=== PATIENT | male | born 1960 | race Caucasian/White ===

== ENCOUNTER 2020-01-11 16:41 | Outpatient (CLI) | payer MEDICARE, SELFPAY ==
[2020-01-11 17:36] LABS: Alanine Aminotransferase 37 U/L (4-50); Albumin Level 4.1 g/dL (3.5-5.1); Alkaline Phosphatase 71 U/L (38-126); Anion Gap 5 mmol/L (8-16); Aspartate Amino Transferase 37 U/L (17-59); Bilirubin,Total 0.4 mg/dL (0.2-1.3); Blood Urea Nitrogen 19 mg/dL (9-20); Calcium 8.9 mg/dL (8.4-10.2); Carbon Dioxide 29 mmol/L (22-30); Chloride 103 mmol/L (98-107); Cholesterol 165 mg/dL (0-200); Estimated Glomerular Filt Rate > 60; Glucose 108 mg/dL (75-110); HDL Direct 56 mg/dL; Potassium 4.3 mmol/L (3.4-5.0); Sodium 137 mmol/L (137-145); Triglycerides 148 mg/dL (<150)
[2020-01-11 17:47] LABS: LDL Cholesterol Direct 72 mg/dL
== END 2020-01-11 16:42 | disposition home or self-care (01) ==
LOC: ANHLAB 16:46
PROVIDERS: PCP Family Medicine; Visit Provider Family Medicine
DX: E78.5 Hyperlipidemia, unspecified (principal)
CPT/HCPCS: 36415; 80053; 80061

== ENCOUNTER 2020-01-19 11:20 | Outpatient (NON) | payer MEDICARE, SELFPAY ==
[2020-01-19 19:48] LABS: SARS-CoV-2 RNA PCR Negative
== END 2020-01-19 11:21 ==
PROVIDERS: PCP Family Medicine; Visit Provider Family Medicine
DX: Z20.828 Contact with and (suspected) exposure to other viral communicable diseases (principal); J02.9 Acute pharyngitis, unspecified
CPT/HCPCS: 87635; C9803; U0003

== ENCOUNTER 2020-04-04 13:54 | Outpatient (CLI) | payer MEDICARE, SELFPAY ==
[2020-04-04 14:14] LABS: Basophils Percent Auto 0.5 % (0.2-1.2); Eosinophils Absolute Auto 0.2 K/mm3 (0-0.3); Eosinophils Percent Auto 3.4 % (0-4.4); Hematocrit 38.5 % (42.0-52.0); Hemoglobin 12.7 g/dL (14.0-18.0); Immature Granulocyte Absolute 0.03 K/mm3 (0.00-0.031); Immature Granulocyte Percent A 0.5 % (0-0.5); Immature Platelet Fraction Pct 4.1 % (0.9-11.2); Lymphocytes Absolute Auto 0.88 K/mm3 (0.9-3.2); Lymphocytes Percent Auto 14.4 % (18.3-44.2); Mean Platelet Volume 10.4 fl (7.4-10.4); Monocytes Absolute Auto 0.6 K/mm3 (0.1-0.6); Monocytes Percent Auto 9.3 % (2.6-8.5); Neutrophils Absolute Auto 4.4 K/mm3 (1.3-6.7); Neutrophils Percent Auto 71.9 % (45.5-73.1); Platelet Count Result 126 k/mm3 (150-375); Red Blood Count 4.23 M/mm3 (4.6-6.20); Red Cell Distribution Width 13.1 % (11.5-14.5); White Blood Count 6.1 K/mm3 (4.5-10.0)
[2020-04-04 14:15] LABS: Blood Urea Nitrogen 27 mg/dL (8-26); Carbon Dioxide 26 mmol/L (22-30); Chloride 106 mmol/L (98-109); Estimated Glomerular Filt Rate > 60; Glucose 110 mg/dL (70-105); Potassium 4.2 mmol/L (3.5-4.9); Sodium 142 mmol/L (138-146)
[2020-04-04 16:35] LABS: Alanine Aminotransferase 59 U/L (4-50); Albumin Level 3.8 g/dL (3.5-5.1); Alkaline Phosphatase 74 U/L (38-126); Anion Gap 6 mmol/L (8-16); Aspartate Amino Transferase 46 U/L (17-59); Bilirubin,Total 0.5 mg/dL (0.2-1.3); Blood Urea Nitrogen 26 mg/dL (9-20); Calcium 8.8 mg/dL (8.4-10.2); Carbon Dioxide 27 mmol/L (22-30); Chloride 107 mmol/L (98-107); Estimated Glomerular Filt Rate > 60; Glucose 116 mg/dL (75-110); Potassium 4.5 mmol/L (3.4-5.0); Sodium 140 mmol/L (137-145)
== END 2020-04-04 13:55 | disposition home or self-care (01) ==
PROVIDERS: PCP Family Medicine; Visit Provider Internal Medicine Hematology & Oncology
DX: D61.818 Other pancytopenia (principal)
CPT/HCPCS: 36415; 80048; 80053; 85025; 85055

== ENCOUNTER 2020-06-24 15:19 | Outpatient (CLI) | payer MEDICARE, SELFPAY | END 2020-06-24 15:20 | disposition home or self-care (01) | LOC: ANHCOVIDVC 15:19 | PROVIDERS: PCP Family Medicine; Visit Provider Family Medicine | DX: Z23 Encounter for immunization (principal) | CPT/HCPCS: 0001A; 91300 ==

== ENCOUNTER 2020-07-15 15:27 | Outpatient (CLI) | payer MEDICARE, SELFPAY | END 2020-07-15 15:28 | disposition home or self-care (01) | LOC: ANHCOVIDVC 15:27 | PROVIDERS: PCP Family Medicine; Visit Provider Family Medicine | DX: Z23 Encounter for immunization (principal) | CPT/HCPCS: 0002A; 91300 ==

== ENCOUNTER 2020-10-31 15:51 | Outpatient (CLI) | payer MEDICARE, SELFPAY ==
[2020-10-31 19:45] LABS: Prostate Specific Antigen 2.5 ng/mL (< OR = 4.0)
== END 2020-10-31 15:52 | disposition home or self-care (01) ==
LOC: ANHLAB 16:01
PROVIDERS: PCP Family Medicine; Referring Provider Internal Medicine; Visit Provider Internal Medicine Hematology & Oncology
DX: Z12.5 Encounter for screening for malignant neoplasm of prostate (principal); I10 Essential (primary) hypertension; E78.5 Hyperlipidemia, unspecified; R79.89 Other specified abnormal findings of blood chemistry; G62.9 Polyneuropathy, unspecified
CPT/HCPCS: 36415; 84153; G0103

== ENCOUNTER 2021-04-03 13:25 | Outpatient (CLI) | payer MEDICARE, SELFPAY ==
[2021-04-03 13:53] LABS: Basophils Percent Auto 0.6 % (0.2-1.2); Eosinophils Absolute Auto 0.4 K/mm3 (0-0.3); Eosinophils Percent Auto 7.8 % (0-4.4); Hematocrit 41.2 % (42.0-52.0); Hemoglobin 13.3 g/dL (14.0-18.0); Immature Granulocyte Absolute 0.02 K/mm3 (0.00-0.031); Immature Granulocyte Percent A 0.4 % (0-0.5); Immature Platelet Fraction Pct 5.2 % (0.9-11.2); Lymphocytes Absolute Auto 0.71 K/mm3 (0.9-3.2); Lymphocytes Percent Auto 15.3 % (18.3-44.2); Mean Corpuscular HGB Conc 32.3 g/dl (32-36); Mean Corpuscular Hemoglobin 30.6 pg (26-34); Mean Corpuscular Volume 94.7 fl (80-100); Mean Platelet Volume 10.6 fl (7.4-10.4); Monocytes Absolute Auto 0.5 K/mm3 (0.1-0.6); Monocytes Percent Auto 10.2 % (2.6-8.5); Neutrophils Percent Auto 65.7 % (45.5-73.1); Platelet Count Result 114 k/mm3 (150-375); Red Blood Count 4.35 M/mm3 (4.6-6.20); Red Cell Distribution Width 12.8 % (11.5-14.5); White Blood Count 4.6 K/mm3 (4.5-10.0)
[2021-04-03 13:54] LABS: Blood Urea Nitrogen 14 mg/dL (8-26); Carbon Dioxide 28 mmol/L (22-30); Chloride 105 mmol/L (98-109); Estimated Glomerular Filt Rate > 60; Glucose 98 mg/dL (70-105); Potassium 4.4 mmol/L (3.5-4.9); Sodium 141 mmol/L (138-146)
== END 2021-04-03 13:26 | disposition home or self-care (01) ==
LOC: ANHLAB 13:29
PROVIDERS: PCP Family Medicine; Visit Provider Internal Medicine Hematology & Oncology
DX: D61.818 Other pancytopenia (principal)
CPT/HCPCS: 36415; 80048; 85025; 85055

== ENCOUNTER 2021-10-31 13:04 | Outpatient (CLI) | payer MEDICARE, SELFPAY ==
[2021-10-31 13:41] LABS: Basophils Percent Auto 0.2 % (0.2-1.2); Eosinophils Absolute Auto 0.2 K/mm3 (0-0.3); Eosinophils Percent Auto 3.2 % (0-4.4); Hematocrit 40.3 % (42.0-52.0); Hemoglobin 12.9 g/dL (14.0-18.0); Immature Granulocyte Absolute 0.03 K/mm3 (0.00-0.031); Immature Granulocyte Percent A 0.6 % (0-0.5); Immature Platelet Fraction Pct 5.8 % (0.9-11.2); Lymphocytes Absolute Auto 0.76 K/mm3 (0.9-3.2); Lymphocytes Percent Auto 16.3 % (18.3-44.2); Mean Corpuscular Hemoglobin 30.1 pg (26-34); Mean Corpuscular Volume 94.2 fl (80-100); Mean Platelet Volume 10.3 fl (7.4-10.4); Monocytes Absolute Auto 0.4 K/mm3 (0.1-0.6); Neutrophils Absolute Auto 3.3 K/mm3 (1.3-6.7); Neutrophils Percent Auto 70.7 % (45.5-73.1); Platelet Count Result 117 k/mm3 (150-375); Red Blood Count 4.28 M/mm3 (4.6-6.20); Red Cell Distribution Width 12.8 % (11.5-14.5); White Blood Count 4.7 K/mm3 (4.5-10.0)
[2021-10-31 16:22] LABS: Alanine Aminotransferase 37 U/L (6-50); Albumin Level 4.2 g/dL (3.5-5.1); Alkaline Phosphatase 73 U/L (38-126); Anion Gap 4 mmol/L (8-16); Aspartate Amino Transferase 36 U/L (17-59); Bilirubin,Total 0.4 mg/dL (0.2-1.3); Blood Urea Nitrogen 22 mg/dL (9-20); Carbon Dioxide 28 mmol/L (22-30); Chloride 106 mmol/L (98-107); Estimated Glomerular Filt Rate > 60; Glucose 94 mg/dL (65-110); Potassium 4.3 mmol/L (3.4-5.0); Sodium 138 mmol/L (137-145)
== END 2021-10-31 13:05 | disposition home or self-care (01) ==
PROVIDERS: PCP Internal Medicine; Visit Provider Internal Medicine Hematology & Oncology
DX: D61.818 Other pancytopenia (principal)
CPT/HCPCS: 36415; 80053; 85025; 85055

== ENCOUNTER 2021-11-06 13:46 | Outpatient (CLI) | payer MEDICARE, SELFPAY ==
--- NOTE | ~2021-11-06 | MR_ITS ---
EXAMINATION: MR knee RT wo con DATE: 11/06/2021 14:42 INDICATION: Right knee pain. TECHNIQUE: Magnetic resonance imaging (MRI) of the right knee was performed without intravenous contr ast. Sequences included axial PD-weighted FS FSE, coronal PD-weighted FSE and PD-weighted FS FSE, sag ittal PD-weighted FSE, and sagittal T2-weighted FS FSE. COMPARISON: None. FINDINGS: Medial compartment: Medial meniscus is normal. There is a subchondral insufficiency fracture of medial femoral condyle wi th low signal fracture line and surrounding bone marrow edema. There is shallow partial-thickness car tilage loss of tibial condyle anteromedially with mild subchondral edema-like signal intensity. Femor al cartilage is normal. Lateral compartment: Lateral meniscus is normal. There is cartilage surface irregularity of tibial condyle. Femoral cartil age is normal. Patellofemoral compartment: There is cartilage surface irregularity of patella and trochlea. Ligaments and tendons: The anterior and posterior cruciate ligaments are normal. Medial collateral ligament and lateral nolan ateral ligament complex are intact. There is mild patellar tendinopathy. Fluid: There is a small knee joint effusion. There is mild prepatellar and superficial infrapatellar bursiti s. IMPRESSION: 1. Subchondral insufficiency fracture of medial femoral condyle. 2. Mild tricompartmental chondrosis. 3. Small knee joint effusion. Reviewed, dictated and finalized at location A.
== END 2021-11-06 13:47 | disposition home or self-care (01) ==
PROVIDERS: PCP Internal Medicine; Visit Provider Orthopaedic Surgery
DX: M25.461 Effusion, right knee (principal); S72.432A Displaced fracture of medial condyle of left femur, initial encounter for closed fracture; X58.XXXA Exposure to other specified factors, initial encounter
CPT/HCPCS: 73721

== ENCOUNTER 2022-04-01 14:25 | Outpatient (CLI) | payer MEDICARE, SELFPAY ==
[2022-04-01 14:43] LABS: Basophils Percent Auto 0.6 % (0.2-1.2); Eosinophils Absolute Auto 0.2 K/mm3 (0-0.3); Eosinophils Percent Auto 3.1 % (0-4.4); Hematocrit 38.7 % (42.0-52.0); Hemoglobin 12.7 g/dL (14.0-18.0); Immature Granulocyte Absolute 0.01 K/mm3 (0.00-0.031); Immature Granulocyte Percent A 0.2 % (0-0.5); Immature Platelet Fraction Pct 5.1 % (0.9-11.2); Lymphocytes Percent Auto 17.6 % (18.3-44.2); Mean Corpuscular HGB Conc 32.8 g/dl (32-36); Mean Corpuscular Hemoglobin 30.8 pg (26-34); Mean Corpuscular Volume 93.7 fl (80-100); Mean Platelet Volume 10.5 fl (7.4-10.4); Monocytes Absolute Auto 0.6 K/mm3 (0.1-0.6); Monocytes Percent Auto 12.1 % (2.6-8.5); Neutrophils Absolute Auto 3.4 K/mm3 (1.3-6.7); Neutrophils Percent Auto 66.4 % (45.5-73.1); Platelet Count Result 109 k/mm3 (150-375); Red Blood Count 4.13 M/mm3 (4.6-6.20); Red Cell Distribution Width 12.6 % (11.5-14.5); White Blood Count 5.1 K/mm3 (4.5-10.0)
[2022-04-01 16:53] LABS: Alanine Aminotransferase 36 U/L (6-50); Albumin Level 4.1 g/dL (3.5-5.1); Alkaline Phosphatase 67 U/L (38-126); Anion Gap 2 mmol/L (8-16); Aspartate Amino Transferase 53 U/L (17-59); Bilirubin,Total 0.4 mg/dL (0.2-1.3); Blood Urea Nitrogen 21 mg/dL (9-20); Calcium 8.5 mg/dL (8.4-10.2); Carbon Dioxide 31 mmol/L (22-30); Chloride 102 mmol/L (98-107); Estimated Glomerular Filt Rate > 60; Glucose 93 mg/dL (65-110); Potassium 4.6 mmol/L (3.4-5.0); Sodium 135 mmol/L (137-145)
[2022-04-01 17:21] LABS: Iron 91 ug/dL (49-181)
[2022-04-01 17:30] LABS: Percent Iron Saturation 25 % (20-50)
== END 2022-04-01 14:26 | disposition home or self-care (01) ==
LOC: ANHLAB 14:26
PROVIDERS: PCP Internal Medicine; Visit Provider Internal Medicine Hematology & Oncology
DX: D61.818 Other pancytopenia (principal); I13.11 Hypertensive heart and chronic kidney disease without heart failure, with stage 5 chronic kidney disease, or end stage renal disease
CPT/HCPCS: 36415; 80053; 82728; 83540; 83550; 85025; 85055

== ENCOUNTER 2022-05-01 13:46 | Outpatient (CLI) | payer MEDICARE, SELFPAY ==
--- NOTE | ~2022-05-01 | DEXA_ITS ---
Bone Density Report Name: TREVER CHILEL Age: 61 Sex: Male Ethnicity: White Date of : 1960 Indication: prior fracture; asthma or emphysema; Referring Provider: DELFINA NGUYỄN Study: Bone densitometry was performed. Exam Date: May 01, 2022 Accession number: [id number] Bone Density: Region BMD T-score Z-score Classification AP Spine(L1, L2) 0.898 -1.4 -0.7 Osteopenia Femoral Neck (Left) 0.714 -1.6 -0.6 Osteopenia Total Hip (Left) 0.812 -1.5 -1.0 Osteopenia Femoral Neck (Right) 0.613 -2.3 -1.3 Osteopenia Total Hip (Right) 0.768 -1.8 -1.3 Osteopenia Total Hip Mean 0.790 -1.7 -1.2 Osteopenia World Health Organization criteria for BMD impression classify patients as: Normal (T-score at or above -1.0), Osteopenia (T-score between -1.0 and -2.5), or Osteoporosis (T-score at or below -2.5). 10-year Fracture Risk: FRAX not reported because: Prior hip or vertebral fracture Clinical Information Provided by Patient: Have had a previous hip or vertebral fracture Has had a low trauma fracture Has used the following medications: Vitamin D, Calcium Has the following medical conditions: Asthma or Emphysema Patient maximum height was 71 No regular weight bearing exercise Drinks caffeinated beverages Impression: The patient has low bone mass, based on the Right Femoral Neck T-score. The patient has risk factors, including: previous fracture. Discussion: INCREASED RISK OF FRACTURE DUE TO HISTORY OF LOW TRAUMA FRACTURE. The patient's previous fracture puts the patient at high risk of a future fracture. In untreated patients, the risk of osteoporotic fracture increases approximately two-fold for each 1.0 SD decrease in T-score. Low bone density is not the only risk factor for fracture; also consider factors such as patient's age, frailty or poor health, risk of falling, risk of injury, previous osteoporotic fracture, family history of osteoporosis, cigarette smoking, low body weight, etc. Not everyone with a low trauma fracture has osteoporosis; osteomalacia and other metabolic bone disorders should also be considered. Patients who have osteoporosis should be evaluated for specific diseases and conditions (secondary causes) that may cause or contribute to bone loss and fracture risk. National Osteoporosis Foundation (NOF) recommends pharmacologic intervention for patients with a prior low trauma hip or vertebral fracture regardless of BMD T-score. The patient should follow a healthful lifestyle (good nutrition with adequate calcium and vitamin D, and appropriate weight-bearing exercise). Follow-Up: Consider a repeat BMD and Vertebral Fracture Assessment (VFA) exam in 2 years or sooner if medically necessary, to reassess this patient's status. Reported by: JL on 05/01/2022 2:36:00 PM.
== END 2022-05-01 13:47 | disposition home or self-care (01) ==
LOC: ANHIMG 13:47
PROVIDERS: PCP Internal Medicine; Visit Provider Internal Medicine Hematology & Oncology
DX: M85.88 Other specified disorders of bone density and structure, other site (principal); M85.852 Other specified disorders of bone density and structure, left thigh; M85.851 Other specified disorders of bone density and structure, right thigh
CPT/HCPCS: 77080

== ENCOUNTER 2022-12-28 14:25 | Outpatient (CLI) | payer MEDICARE, SELFPAY ==
[2022-12-28 15:01] LABS: Basophils Percent Auto 0.4 % (0.2-1.2); Eosinophils Absolute Auto 0.2 K/mm3 (0-0.3); Eosinophils Percent Auto 2.7 % (0-4.4); Hemoglobin 12.5 g/dL (14.0-18.0); Immature Granulocyte Absolute 0.01 K/mm3 (0.00-0.031); Immature Granulocyte Percent A 0.2 % (0-0.5); Immature Platelet Fraction Pct 7.1 % (0.9-11.2); Lymphocytes Absolute Auto 0.74 K/mm3 (0.9-3.2); Lymphocytes Percent Auto 13.4 % (18.3-44.2); Mean Corpuscular HGB Conc 32.9 g/dl (32-36); Mean Corpuscular Volume 94.3 fl (80-100); Mean Platelet Volume 10.6 fl (7.4-10.4); Monocytes Absolute Auto 0.5 K/mm3 (0.1-0.6); Monocytes Percent Auto 8.5 % (2.6-8.5); Neutrophils Absolute Auto 4.1 K/mm3 (1.3-6.7); Neutrophils Percent Auto 74.8 % (45.5-73.1); Platelet Count Result 106 k/mm3 (150-375); Red Blood Count 4.03 M/mm3 (4.6-6.20); Red Cell Distribution Width 12.9 % (11.5-14.5); White Blood Count 5.5 K/mm3 (4.5-10.0)
[2022-12-28 16:50] LABS: Iron 99 ug/dL (49-181)
[2022-12-28 16:51] LABS: Anion Gap 5 mmol/L (8-16); Blood Urea Nitrogen 25 mg/dL (9-20); Carbon Dioxide 30 mmol/L (22-30); Chloride 104 mmol/L (98-107); Estimated Glomerular Filt Rate > 60; Glucose 95 mg/dL (65-110); Potassium 4.6 mmol/L (3.4-5.0); Sodium 139 mmol/L (137-145)
[2022-12-28 17:00] LABS: Percent Iron Saturation 26 % (20-50)
== END 2022-12-28 14:26 | disposition home or self-care (01) ==
LOC: ANHLAB 14:29
PROVIDERS: PCP Internal Medicine; Visit Provider Internal Medicine Hematology & Oncology
DX: D61.818 Other pancytopenia (principal); D50.9 Iron deficiency anemia, unspecified
CPT/HCPCS: 36415; 80048; 82728; 83540; 83550; 85025; 85055

== ENCOUNTER 2023-01-21 14:09 | Outpatient (CLI) | payer MEDICARE, SELFPAY ==
[2023-01-21 15:05] LABS: Influenza A QL RT-PCR Negative (Negative); Influenza B QL RT-PCR Negative (Negative); RSV RNA, RT-PCR Negative (Negative); SARS-CoV-2 RNA PCR Negative (Negative)
== END 2023-01-21 14:10 | disposition home or self-care (01) ==
PROVIDERS: PCP Internal Medicine; Visit Provider Internal Medicine Pulmonary Disease
DX: R06.02 Shortness of breath (principal); R05.9 Cough, unspecified
CPT/HCPCS: 87637

== ENCOUNTER 2024-01-04 13:19 | Outpatient (CLI) | payer MEDICARE, SELFPAY ==
[2024-01-04 14:37] LABS: Basophils Percent Auto 0.6 % (0.2-1.2); Eosinophils Absolute Auto 0.2 K/mm3 (0-0.3); Eosinophils Percent Auto 4.2 % (0-4.4); Hematocrit 39.7 % (42.0-52.0); Hemoglobin 12.8 g/dL (14.0-18.0); Immature Granulocyte Absolute 0.01 K/mm3 (0.00-0.031); Immature Granulocyte Percent A 0.2 % (0-0.5); Lymphocytes Absolute Auto 0.61 K/mm3 (0.9-3.2); Lymphocytes Percent Auto 12.8 % (18.3-44.2); Mean Corpuscular HGB Conc 32.2 g/dl (32-36); Mean Corpuscular Hemoglobin 30.8 pg (26-34); Mean Corpuscular Volume 95.4 fl (80-100); Monocytes Absolute Auto 0.5 K/mm3 (0.1-0.6); Monocytes Percent Auto 9.4 % (2.6-8.5); Neutrophils Absolute Auto 3.5 K/mm3 (1.3-6.7); Neutrophils Percent Auto 72.8 % (45.5-73.1); Platelet Count Result 95 k/mm3 (150-375); Red Blood Count 4.16 M/mm3 (4.6-6.20); Red Cell Distribution Width 12.7 % (11.5-14.5); White Blood Count 4.8 K/mm3 (4.5-10.0)
[2024-01-04 16:28] LABS: Iron 86 ug/dL (49-181)
[2024-01-04 16:30] LABS: Alanine Aminotransferase 35 U/L (6-50); Albumin Level 4.3 g/dL (3.5-5.1); Alkaline Phosphatase 62 U/L (38-126); Anion Gap 6 mmol/L (4-12); Aspartate Amino Transferase 35 U/L (17-59); Bilirubin,Total 0.5 mg/dL (0.2-1.3); Blood Urea Nitrogen 23 mg/dL (9-20); Calcium 8.9 mg/dL (8.4-10.2); Carbon Dioxide 30 mmol/L (22-30); Chloride 103 mmol/L (98-107); Estimated Glomerular Filt Rate > 60; Glucose 118 mg/dL (65-110); Potassium 4.7 mmol/L (3.4-5.0); Sodium 139 mmol/L (137-145)
[2024-01-04 16:38] LABS: Percent Iron Saturation 24 % (20-50)
== END 2024-01-04 13:20 | disposition home or self-care (01) ==
PROVIDERS: PCP Internal Medicine; Visit Provider Internal Medicine Hematology & Oncology
DX: D61.818 Other pancytopenia (principal); D50.9 Iron deficiency anemia, unspecified
CPT/HCPCS: 36415; 80053; 82728; 83540; 83550; 85025; 85055

== ENCOUNTER 2024-05-10 12:18 | Outpatient (CLI) | payer MEDICARE, SELFPAY ==
--- NOTE | ~2024-05-10 | DEXA_ITS ---
Bone Density Report Name: TREVER CHILEL Age: 63 Sex: Male Ethnicity: White Date of : 1960 Indication: osteopenia; prior fracture; asthma or emphysema; Referring Provider: RAHEEM, JT Ordonez Study: Bone densitometry was performed. Exam Date: May 10, 2024 Accession number: [id number] Bone Density: Region BMD T-score Z-score Classification AP Spine(L1, L2) 0.915 -1.3 -0.5 Osteopenia Femoral Neck (Left) 0.752 -1.3 -0.3 Osteopenia Total Hip (Left) 0.843 -1.3 -0.8 Osteopenia Femoral Neck (Right) 0.653 -2.0 -1.0 Osteopenia Total Hip (Right) 0.803 -1.5 -1.0 Osteopenia Total Hip Mean 0.823 -1.4 -0.9 Osteopenia World Health Organization criteria for BMD impression classify patients as: Normal (T-score at or above -1.0), Osteopenia (T-score between -1.0 and -2.5), or Osteoporosis (T-score at or below -2.5). 10-year Fracture Risk: FRAX not reported because: Prior hip or vertebral fracture Previous Exams: Region Exam Age BMD T-score BMD Change BMD Change Date g/cm2 vs Baseline vs Previous AP Spine (L1-L2) 05/10/2024 63 0.915 -1.3 0.017 (1.9%) 0.017 (1.9%) 05/01/2022 61 0.898 -1.4 Total Hip(Left) 05/10/2024 63 0.843 -1.3 0.031 (3.8%)* 0.031 (3.8%)* 05/01/2022 61 0.812 -1.5 Total Hip(Right) 05/10/2024 63 0.803 -1.5 0.063 (8.5%)# 0.063 (8.5%)# 05/01/2022 61 0.740 -1.9 *Denotes significance at 95% confidence level, LSC for AP Spine = 0.022 g/cm2, LSC for Total Hip = 0.027 g/cm2 # Denotes dissimilar scan types or analysis methods Clinical Information Provided by Patient: Have had a previous hip or vertebral fracture Has had a low trauma fracture Has used the following medications: Fosamax (i.e. alendronate), Vitamin D, Calcium Has the following medical conditions: Asthma or Emphysema Patient maximum height was 71 No regular weight bearing exercise Drinks caffeinated beverages Impression: The patient has low bone mass, based on the Right Femoral Neck T-score. The patient has risk factors, including: previous fracture. No significant bone loss was observed. Discussion: INCREASED RISK OF FRACTURE DUE TO HISTORY OF LOW TRAUMA FRACTURE. The patient's previous fracture puts the patient at high risk of a future fracture. In untreated patients, the risk of osteoporotic fracture increases approximately two-fold for each 1.0 SD decrease in T-score. Low bone density is not the only risk factor for fracture; also consider factors such as patient's age, frailty or poor health, risk of falling, risk of injury, previous osteoporotic fracture, family history of osteoporosis, cigarette smoking, low body weight, etc. Not everyone with a low trauma fracture has osteoporosis; osteomalacia and other metabolic bone disorders should also be considered. Patients who have osteoporosis should be evaluated for specific diseases and conditions (secondary causes) that may cause or contribute to bone loss and fracture risk. National Osteoporosis Foundation (NOF) recommends pharmacologic intervention for patients with a prior low trauma hip or vertebral fracture regardless of BMD T-score. The patient should follow a healthful lifestyle (good nutrition with adequate calcium and vitamin D, and appropriate weight-bearing exercise). Follow-Up: Consider a repeat BMD and Vertebral Fracture Assessment (VFA) exam in 2 years or sooner if medically necessary, to reassess this patient's status. Reported by: JL on 05/10/2024 12:49:00 PM. Reviewed, dictated and finalized at location Duane DEJESUS
== END 2024-05-10 12:19 | disposition home or self-care (01) ==
LOC: ANHIMG 12:21
PROVIDERS: PCP Internal Medicine; Visit Provider Internal Medicine
DX: M85.89 Other specified disorders of bone density and structure, multiple sites (principal); M85.852 Other specified disorders of bone density and structure, left thigh; M85.851 Other specified disorders of bone density and structure, right thigh
CPT/HCPCS: 77080

== ENCOUNTER 2024-11-16 17:56 | Emergency (ER) | payer MEDICARE, SELFPAY ==
--- NOTE | ~2024-11-16 | CT_ITS ---
History: Head injury with vertigo and headaches PROCEDURE: CT head without contrast. COMPARISON: None 10/21/2017 TECHNIQUE: Axial imaging of the head performed from the skull base to the vertex without IV contrast. Sagittal a nd coronal reformations obtained. DLP: 756 mGy-cm FINDINGS: The ventricles are enlarged. The dilatation of the ventricles is proportional to the degree of sulcal prominence, not uncommon in the senescent brain. Decreased attenuation is identified within the periventricular white matter, likely secondary to micr ovascular ischemic disease, in a patient of this age. There is no mass, mass effect or midline shift. There is no abnormal extra-axial fluid collection or intracranial hemorrhage. Visualized paranasal sinuses are clear. The mastoid air cells are well aerated. No acute displaced fractures within the overlying cranium. Impression: No acute intracranial hemorrhage or suspicious mass effect. Reviewed, dictated and finalized at location A. Impression: No acute intracranial hemorrhage or suspicious mass effect.
--- NOTE | ~2024-11-16 | CT_ITS ---
History: Head injury PROCEDURE: CT cervical spine without intravenous contrast. COMPARISON: 12/18/2015 TECHNIQUE: Multiple contiguous axial images of the cervical spine were performed without the administration of i ntravenous contrast. DLP: 514 mGy-cm FINDINGS: Straightening of the normal curvature of the cervical spine is identified, likely muscular in origin. Degenerative disease is identified, with osteophyte formation, disc space narrowing, endplate changes , vacuum phenomena and significant facet arthropathy. Subchondral cyst formation is also noted. No acute fractures are present. The bilateral lung apices are unremarkable. No soft tissue abnormality is appreciated. The airway is patent. Impression: Straightening of the normal curvature of the cervical spine, likely muscular in origin. Significant degenerative disease, without acute fracture. Reviewed, dictated and finalized at location A. Impression: Straightening of the normal curvature of the cervical spine, likely muscular in origin. Significant degenerative disease, without acute fracture.
[2024-11-16 17:57] VITALS: BP 145/70; PULSE 64; RESP 16; TEMP 36.8; O2SAT 100
--- OUTSIDE RECORDS SUMMARY | 2024-11-16 17:59 | XMS_ITS | Encounter Summary ---
Author Organization 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[employer] Gender Identity Male 12/03/2019 11:44 PM CDT Sexual Orientation Not on file documented as of this encounter Plan of Treatment Not on file documented as of this encounter Procedures Procedure Name Priority Date/Time Associated Diagnosis Comments CARDIOLOGY DOCUMENT SCAN 06/04/2017 documented in this encounter Results * SCAN - CARDIOLOGY (06/04/2017) Anatomical Region Laterality Modality Other us Provider Scanning [facility] CARDIAC SERVICES PROCEDURES Final Result documented in this encounter Visit Diagnoses Not on filedocumented in this encounter Additional Health Concerns Infection Onset Date Last Indicated Resolved Time COVID: Suspected 12/25/2020 12/25/2020 12/26/2020 12:01 AM CDT COVID: Suspected 07/03/2021 07/03/2021 07/03/2021 8:22 PM CDT COVID: Suspected 09/14/2022 09/14/2022 09/14/2022 12:54 PM CDT COVID: Suspected 09/14/2022 09/14/2022 09/14/2022 9:18 PM CDT COVID: Suspected 01/29/2023 01/29/2023 01/29/2023 10:02 AM CDT COVID19 01/29/2023 01/29/2023 02/08/2023 3:05 AM CDT COVID: Recovered Comment:Added based on recent COVID infection. 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
--- OUTSIDE RECORDS SUMMARY | 2024-11-16 17:59 | XMS_ITS | Clinical Summary ---
Author Organization [facility] Address [address] [place] [address] Care Team Providers Care Nurses Supervisor Name Role Phone Melania Gavin MD Primary Care Provider Allergies No known active allergies Medications cholecalciferol (VITAMIN D-3) 5,000 unit tablet Take by mouth 3,000 units a day Active docusate sodium (COLACE) 100 mg capsuleIndications :constipation Take 3 capsules (300 mg total) by mouth daily Active multivit with minerals/lutein (MULTIVITAMIN 50 PLUS ORAL) Take 1 capsule by mouth. Active vit B comp no.3-dxwmq-N-bioti n 1-60-300 mg-mg-mcg tabletIndications: Vitamin Deficiency Prevention Take 1 tablet by mouth Active potassium gluconate 550 mg (90 mg) tablet 1 tablet (550 mg total) Active biotin 1 mg tablet Take 2.5 tablets (2,500 mcg total) by mouth daily Active wfpvivxaeti-O5-Vxy wellia serr 1,500-400-100 mg-unit-mg tablet Take 1 tablet by mouth 2 (two) times a day. Active albuterol HFA (PROVENTIL HFA,VENTOLIN HFA,PROAIR HFA) 90 mcg/actuation inhaler as needed 9 Active magnesium oxide 500 mg capsule Take by mouth daily Active cyanocobalamin (Vitamin B-12) 1,000 mcg sublingual tablet Take 1 tablet (1,000 mcg total) by mouth daily 3,000 mg a day Active montelukast (SINGULAIR) 10 mg tablet Take 1 tablet (10 mg total) by mouth nightly at bedtime. 1 Active simethicone (MYLICON) 80 mg chewable tablet Take 1 tablet (80 mg total) by mouth 4 (four) times a day 3 Active calcium citrate 250 mg calcium tablet tablet Take 3 tablets (750 mg total) by mouth 2 (two) times a day 750 mg 2 times a day Active fluticasone propionate (FLONASE) 50 mcg/actuation nasal spray USE 1 SPRAY(S) IN EACH NOSTRIL TWICE DAILY 3 Active tadalafiL (CIALIS) 5 mg tablet Take 1 tablet (5 mg total) by mouth daily 30 tablet 11 4 Active tamsulosin (FLOMAX) 0.4 mg extended release capsule Take 2 capsules (0.8 mg total) by mouth daily 60 capsule 11 4 Active alendronate (FOSAMAX) 70 mg tabletIndications: Osteoporosis, unspecified osteoporosis type, unspecified pathological fracture presence Take 1 tablet (70 mg total) by mouth every 7 days Take in the morning with a full glass of water, on an empty stomach, and do not take anything else by mouth or lie down for the next 30 min. 12 tablet 3 4 Active rOPINIRole (REQUIP) 0.5 mg tabletIndications: Restless leg syndrome TAKE 1 TABLET BY MOUTH TWICE DAILY WITH SUPPER AND AT BEDTIME AND YOU CAN TAKE AN EXTRA 1 TAB AT NIGHT IF NEEDED 210 tablet 3 4 Active famotidine (PEPCID) 20 mg tablet Take 1 tablet (20 mg total) by mouth daily 30 tablet 11 5 Active metoprolol XL (TOPROL-XL) 100 mg 24 hr tablet Take 1 tablet (100 mg total) by mouth daily 100 tablet 1 5 Active gabapentin (NEURONTIN) 300 mg capsule Take 1 capsule (300 mg total) by mouth 4 (four) times a day 120 capsule 11 5 Active baclofen (LIORESAL) 10 mg tablet Take 1 tablet (10 mg total) by mouth 3 (three) times a day 270 tablet 3 5 Active ibuprofen (ADVIL,MOTRIN) 400 mg tablet Take 1 tablet (400 mg total) by mouth every 6 (six) hours as needed for pain 360 tablet [address] (CYMBALTA) 30 mg capsule Take 1 capsule (30 mg total) by mouth 2 (two) times a day 200 capsule 1 5 Active aspirin 81 mg enteric coated tablet Take 1 tablet by mouth once daily 90 tablet 1 5 Active atorvastatin (LIPITOR) 40 mg tablet Take 1 tablet by mouth once daily 90 tablet 1 5 Active ondansetron ODT (ZOFRAN-ODT) 4 mg disintegrating tablet Take 1 tablet (4 mg total) by mouth every 8 (eight) hours as needed for nausea or vomiting 20 tablet 5 025 Discontin ued(Thera py completed ) mirabegron ER (MYRBETRIQ) 50 mg tablet extended release 24 hr Take 1 tablet (50 mg total) by mouth daily 30 tablet 11 5 025 Discontin ued(Thera py completed ) vibegron (Gemtesa) 75 mg tablet Take 75 mg by mouth daily 30 tablet 11 5 025 Discontin ued(Thera py completed ) Active Problems Patient Care Coordination No te Formatting of this note migh t be different from the original. Dr. Vides is at location [address] [place] [address]. and . Problem Noted Date Diagnosed Date Other hyperlipidemia 10/24/2024 Weak urinary stream 10/13/2022 Recurrent major depression 08/04/2022 Right hand pain 11/26/2021 Thrombocytopenia 08/26/2021 Hypertensive disorder 08/19/2021 PVC (premature ventricular contraction) 08/05/19 22 Tremor, unspecified 01/31/2020 Assessment & Plan (02/01/2020 12:04 PM CDT): NEUROPSYCHOLOGICAL EVALUATION: INTERPRETATION (for Assessment and Plan, see further below) Normal cognitive performance on MMSE; Normal cognitive performance on MoCA. Mild evidence of depression on GDS; Mild evidence of depression on HADS. Moderate evidence of anxiety on HADS. No evidence of daytime drowsiness on Arvilla scale. Moderate evidence of REM Behavior Disorder (RBD) on Stiasny-Kolster scale. These scores establish a baseline for potential future reference and do not require a change in current plan. ASSESSMENT - 59 y.o. man with neurologic symptoms that I would divide into three groups: 1) intermittent irregular jerking of the right hand when he taps on his smartphone, which I interpret to likely represent posture tremor, present for about 2 years; 2) leg discomfort in the calves when lying in bed, bothersome for 2 years but possibly present for decades; 3) low back pain with radiation to the legs. The motor UPDRS score was 15. - The examination revealed minimal findings that could represent very mild parkinsonism or nonspecific abnormalities linked to guarding for low back pain. 1) The intermittent hand jerks may represent posture tremor in one hand. A possible diagnosis is essential tremor that is so far confined to one hand. Another possibility is Parkinson's disease. Although there were a few motor abnormalities on exam that could be parkinsonian in nature, they could also be nonspecific and due to aging and/or a cautious way of moving to guard against low back pain. For these hand jerks or tremor I would not try any treatment because they occur too rarely to observe an improvement. Over time their underlying diagnosis may become clearer. 2) the discomfort in the calves most likely represents restless leg syndrome (RLS). The sleep study indicates that he likely also has accompanying periodic limb movements of sleep (PLMS). For RLS I would increase his current ropinirole dose. If PLMS movements are indeed present, they do not require specific treatment. 3) low back pain and post-laminectomy syndrome are managed by his surgeon and at the pain center. PLAN - As we discussed, I agree that you have restless leg syndrome (RLS) and periodic limb movements of sleep (PLMS). - For RLS I suggest increasing ropinirole 0.5 mg tabs to 1 tab 2x/day, at dinner time and bedtime - Your tremor after you used your hand when gardening is a posture tremor that could be an isolated tremor or could be the beginning of a neurological condition. The trouble tapping the smart phone screen may be part of the same type of tremor. - Your examination showed a few findings that are seen in Parkinson's disease but they may also be caused by your body's reaction to low back pain (like walking slowly to avoid pain). - Contact my office if your tremor becomes more bothersome - Contact my office in 4 weeks to report how long it takes you to first fall asleep (currently 60-90 minutes). This encounter's total ruxa-fb-gzvj time was 60 minutes. I spent more than 50% of this time in counseling and/or coordination of care as documented in the note. The patient visit started at 1505 and ended at 1606. Greater than 50% of the visit was spent on counseling and coordinating care. Patient was counseled on difference between RLS discomfort and radiating low back pain NOTE: The present note includes, below, the line Ambulatory referral to Neurology. This statement is included as a mandatory component of the note template that I do not have the ability to remove. This statement has no clinical significance. I am NOT ordering a referral to Neurology. Palpitations 03/20/2019 Intervertebral disc disorder with radiculopathy of lumbar region 12/10/2017 Postlaminectomy syndrome 12/10/2017 Chronic bilateral low back pain with bilateral s ciatica 12/10/2017 Peripheral neuropathy 12/10/2017 Restless leg syndrome Assessment & Plan (11/12/2024 12:25 PM CDT): ASSESSMENT He has had RLS since 2018 and posture tremor of unknown duration. - Tremor: tremor unchanged, tolerable for now without meds specifically prescribed for tremor (though he is taking metoprolol for cardiac indications). No need to change current management of tremor. There was mild parkinsonism, not much changed: The motor UPDRS score was 15 in Feb 2021, 12 in Feb 2022 - RLS: mostly stable on ropinirole and gabapentin with only occasional nights where symptoms interfere with sleep Start 12:41 pm End 1:14 pm Total time 36 min Recommendations 1. Continue gabapentin 300 mg caps to 1 cap at 10am, 3pm, 8pm 2. Continue ropinirole 0.5 mg tabs, 1 tab 2x/day at dinner time and bedtime. 3. On nights when he has more trouble with RLS, which is only once per week or less, he can take an extra 1 tab of gabapentin or ropinirole, or occasionally both. I have established and will maintain a relationship with this patient to longitudinally manage his chronic neurologic movement disorder. 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 - Tremor: tremor unchanged, tolerable for now without meds specifically prescribed for tremor (though he is taking metoprolol for cardiac indications). No need to change current management of tremor. There was mild parkinsonism, not much changed: The motor UPDRS score was 15 in Feb 2021, 12 in Feb 2022 - RLS: mostly stable on ropinirole and gabapentin with only occasional nights where symptoms interfere with sleep Start 12:45 pm End 1:12 pm Total time 30 min Recommendations 1. Continue gabapentin 300 mg caps to 1 cap at 10am, 3pm, 8pm 2. Continue ropinirole 0.5 mg tabs, 1 tab 2x/day at dinner time and bedtime. 3. On nights when he has more trouble with RLS, which is only once per week or less, he can take an extra 1 tab of gabapentin or ropinirole. I have established and will maintain a relationship with this patient to longitudinally manage his chronic neurologic movement disorder. Assessment & Plan (09/19/2023 4:31 PM CDT): ASSESSMENT He has had RLS since 2018 and posture tremor of unknown duration. - Tremor: tremor unchanged, tolerable for now without meds specifically prescribed for tremor (though he is taking metoprolol for cardiac indications). No need to change current management of tremor. There was mild parkinsonism, not much changed: The motor UPDRS score was 15 in Feb 2021, 12 in Feb 2022 - RLS: mostly stable on ropinirole and gabapentin with only occasional nights where symptoms interfere with sleep Start 12:48 pm End 1:25 pm Total time 40 min Recommendations 1. Continue gabapentin 300 mg caps to 1 cap at 10am, 3pm, 8pm 2. Continue ropinirole 0.5 mg tabs, 1 tab 2x/day at dinner time and bedtime. 3. On nights when he has more trouble with RLS, which is only once per week or less, he can take an extra 1 tab of ropirole, but can also try an extra 1 tab of gabapentin if needed. I have established and will maintain a relationship with this patient to longitudinally manage his chronic neurologic movement disorder. Assessment & Plan (12/20/2022 12:22 PM CDT): ASSESSMENT He has had RLS since 2018 and posture tremor of unknown duration. - Tremor: tremor unchanged, tolerable for now without meds specifically prescribed for tremor (though he is taking metoprolol for cardiac indications). No need to change current management of tremor. There was mild parkinsonism, not much changed: The motor UPDRS score was 15 in Feb 2021, 12 in Feb 2022 - RLS: mostly stable on ropinirole and gabapentin with only occasional nights where symptoms interfere with sleep Start 3:20 pm End 3:50 pm Total time 33 min Recommendations 1. Continue gabapentin 300 mg caps to 1 cap at 10am, 3pm, 8pm 2. Continue ropinirole 0.5 mg tabs, 1 tab 2x/day at dinner time and bedtime. On nights when he has more trouble with RLS, which is only once per week or less, he can take an extra 1 tab of ropirole, but can also try an extra 1 tab of gabapentin if needed. I increased his ropinirole prescription so that he has enough tablets for prn doses. Assessment & Plan (03/07/2022 4:27 PM SALES PROMOTION OFFICER): ASSESSMENT He has had RLS since 2018 and posture tremor of unknown duration. - Tremor: tremor unchanged, tolerable for now without meds specifically prescribed for tremor (though he is taking metoprolol for cardiac indications). No need to change current management of tremor. There was mild parkinsonism, not much changed: The motor UPDRS score was 15 in Feb 2021, 12 in Feb 2022 - RLS: mostly stable on ropinirole and gabapentin with only occasional nights where symptoms interfere with sleep Start 2:49 pm End 3:17pm Total time 32 min Recommendations 1. Continue gabapentin 300 mg caps to 1 cap at 10am, 3pm, 8pm 2. Continue ropinirole 0.5 mg tabs, 1 tab 2x/day at dinner time and bedtime. On nights when he has more trouble with RLS, which is only once every 3-4 weeks, he can take an extra 1 or 2 tabs of ropirole. Assessment & Plan (04/04/2021 6:09 PM SALES PROMOTION OFFICER): ASSESSMENT - 60 y.o. man with RLS for 3 years and posture tremor of unknown duration. - Motor symptoms: tremor unchanged, tolerable for now without meds specifically prescribed for tremor (though he is taking metoprolol for cardiac indications). No need to change current management of tremor. There was mild parkinsonism, not much changed: The motor UPDRS score was 15 today in Feb 2021, 15 - RLS: increase of ropinirole and addition of gabapentin may or may not have helped. He still has active symptoms with sleep disruption, falling asleep after 60-90 minutes and waking up 2-3 times. Will increase dose of gabapentin. PLAN (phrased as addressed to the patient): - Increase gabapentin 300 mg caps to 1 cap at 10am, 1 cap at 3pm, 2 caps at 8pm - Continue ropinirole 0.5 mg tabs, 1 tab 2x/day at dinner time and bedtime - Contact my office in 6 weeks if you are still taking more than 30 minutes to fall asleep. This encounter's total blbs-gq-[id number] time was greater than 30 minutes. I spent more than 50% of this time in counseling and/or coordination of care as documented in the note. The patient visit started at 1444 and ended at 1525. Greater than 50% of the visit was spent on counseling and coordinating care. Patient was counseled on rationale for increasing gabapentin. Resolved Problems Problem Noted Date Diagnosed Date Resolved Date Other chest pain 08/04/2021 01/29/2022 Other chronic pain 12/10/2017 2 Encounters Date Type Department Care Team Description 11/15/2024 4:00 PM CDT Lab [facility] ([facility]) [address] [place] [address] Thrombocytopenia (HCC); Routine general medical examination at a health care facility; Need for hepatitis B screening test 11/15/2024 Results Follow-Up [facility] Primary Care [address] [place] [address] [address] [place] [address] Melania Gavin MD Comprehensive metabolic panel, Lipid panel, Hepatitis B core antibody, total Blood, Additional followed-up results: 3 11/13/2024 Orders Only [facility] [address] [facility] [address] [place] [address] Toshia Sun MD Thrombocytopenia (HCC) (Primary Dx); Postlaminectomy syndrome; Chronic bilateral low back pain with bilateral sciatica; Intervertebral disc disorder with radiculopathy of lumbar region 11/10/2024 Telephone [facility] [address] [place] [address] Toshia Sun MD Scheduling Appointments 11/09/2024 12:00 PM CDT Office Visit [facility] Movement Disorders [address] [place] [address] Ruben Fang MD PhD Restless leg syndrome (Primary Dx) 10/31/2024 1:45 PM CDT Office Visit [facility] Primary Care [address] [place] [phone] Melania Gavin MD Thrombocytopenia (HCC) (Primary Dx); Recurrent major depressive disorder, in partial remission; Chronic bilateral low back pain with bilateral sciatica; Chronic right shoulder pain; Routine general medical examination at a health care facility; Need for hepatitis B screening test 10/18/2024 Telephone [facility] [address] [place] [address] [place] [phone] Devika Luna RMA 10/14/2024 11:25 AM CDT Lab [facility] Lab [address] [place] [address] BPH with obstruction/lower urinary tract symptoms 10/11/2024 Telephone [facility] Surgery [address] [place] [address] Melva Friedman 10/11/2024 Orders Only [facility] [address] [place] [address] [place] [phone] Ruben Morrison MD BPH with obstruction/lower urinary tract symptoms (Primary Dx) 10/11/2024 Telephone [facility] Surgery [address] [place] [address] Carlie Franklin CMA 10/06/2024 Orders Only [facility] [address] [facility] [address] [place] [address] Ruben Morrison MD 10/06/2024 Telephone [facility] Surgery [address] [place] [address] Amadeo Washington 10/05/2024 1:30 PM CDT Office Visit [facility] Cardiology [address] [facility] [address] [place] [phone] Ta Nolen MD PVC (premature ventricular contraction) (Primary Dx); Hyperlipidemia, unspecified hyperlipidemia type 09/28/2024 4:00 PM CDT Telemedicine [facility] [address] [place] [address] [address] [place] [address] Ruben Morrison MD BPH with obstruction/lower urinary tract symptoms (Primary Dx) 09/22/2024 Telephone [facility] [address] [place] [address] [address] [place] [address] Devika Luna RMA 09/19/2024 3:15 PM CDT - 09/19/2024 11:59 PM CDT Hospital Encounter [facility] CT [address] [place] [address] BPH with obstruction/lower urinary tract symptoms Discharge Disposition: Discharge to home or self care 09/18/2024 Documentation [facility] Physical Therapy [address] [address] Kimberly iMllan, PT 09/08/2024 12:49 PM CDT - 09/08/2024 11:59 PM CDT Hospital Encounter [facility] Diagnostic Imaging [address] [place] [address] Chronic right shoulder pain Discharge Disposition: Discharge to home or self care 08/31/2024 1:20 PM CDT Office Visit [facility] [address] [facility] [address] [place] [address] Ruben Morrison MD Elevated PSA (Primary Dx); Enlarged prostate; BPH with obstruction/lower urinary tract symptoms; Pelvic floor dysfunction 08/31/2024 11:15 AM CDT Office Visit [facility] Orthopedics and Sports Medicine [address] [facility] [address] [place] [address] Donnie Carvajal MD Chronic right shoulder pain (Primary Dx) 08/30/2024 3:55 PM CDT Lab [facility] Advanced [facility] ([facility] [address] [place] [phone] Elevated PSA 08/30/2024 Telephone [facility] [address] [facility] [address] [place] [address] Devika Luna RMA from Last 3 Months Immunizations Immunization Administration Dates Next Due COVID-19 mRNA (WorldEscape) 0.3 m L (30 mcg) vaccine (12 years and up) 08/31/2023 Influenza, Quadrivalent, Dory l Culture-based MDCK, Preservative Free, Antibiotic Free, Intramuscular 01/20/2019 Influenza, Quadrivalent, Rec ombinant, Egg Free, Preservative Free, Intramuscular 02/07/2020 Influenza, Quadrivalent, Spl it, Preservative Free, Intramuscular 01/23/2018 Influenza, Trivalent, Preser vative Free, Intramuscular 02/16/2024,01/18/2016 Influenza, Unspecified 01/19/2024(Deferr ed: Patient Refused),01/26/2023,01/19/2022, 021(Deferred: Patient Refused) Pfizer SARS-CoV-2 Monovalent Vaccination (12+ Yrs) PURPLE 01/19/2021,07/15/2020,06/24/2020 Pfizer Sars-Cov-2 Bivalent V accination (12+ YRS) 03/02/2024,12/29/2021 Surgical History Surgery Date Site/Laterality Comments [place] ARTHRD ANT INTERBODY MIN DSC LUMBAR Lumbar Vertebral Fusion - (Added by TW Conv) [place] TONSILLECTOMY PRIMARY/SECONDARY <AGE 12 Tonsillectomy - (Added by TW Conv) ANAL SPHINCTEROTOMY 04/19/1999 - 04/18/2000 TUMOR REMOVAL 04/19/1985 - 04/18/1986 right radial nerve, forearm SPINE SURGERY 06/19/1991 FLUORO GUIDED ASPIRATION OR INJECTION LARGE JOINT RIGHT 09/08/2024 Right Medical History Medical History Date Comments Personal history of other di seases of the respiratory system History of asthma - (Added b y TW Conv) Personal history of other di seases of the circulatory system History of hypertension - (A dded by TW Conv) Personal history of other di seases of the musculoskeletal system and connective tissue History of osteopenia - (Add ed by TW Conv) Chronic pain Arthritis Hypertension Obstructive sleep apnea Restless leg syndrome Pancytopenia (HCC) Hyperlipidemia Low back pain Enlarged prostate Hemorrhoid PASTORA (obstructive sleep apnea) us ing CPAP Osteoporosis GERD (gastroesophageal reflux disease) 1998 Asthma 1995 Benign prostatic hyperplasia 2000 Heart disease 2018 Neuromuscular disorder (HCC) 1989 Peptic ulceration 1987 Family History Medical History Relation Name Comments Arthritis Father Eusebio Heart attack Father Eusebio Heart disease Father Eusebio Hypertension Father Eusebio Sudden Cardiac Father Eusebio Cancer Father's Brother ann Cancer Father's Sister mikhail Clotting disorder Maternal Grandmother Dante Diabetes Maternal Grandmother Dante Heart disease Maternal Grandmother Dante Hyperlipidemia Maternal Grandmother Dante Hypertension Maternal Grandmother Dante Obesity Maternal Grandmother Dante Stroke Maternal Grandmother Dante Anemia Mother Bailey Arthritis Mother Bailey Clotting disorder Mother Bailey Depression Mother Bailey Hyperlipidemia Mother Bailey Hypertension Mother Bailey Memory loss Mother Bailey Mental illness Mother Bailey Parkinsonism Mother Bailey Stroke Mother Bailey Thyroid disease Mother Bailey Diabetes Mother's Sister Estelita Heart disease Mother's Sister Estelita Hyperlipidemia Mother's Sister Estelita Hypertension Mother's Sister Estelita Memory loss Mother's Sister Estelita Obesity Mother's Sister Estelita Stroke Mother's Sister Estelita Diabetes Other 1 Family history of diabetes mellitus - (Added by TW Conv) Stroke Other 2 Family history of cerebrovascular accident (CVA) - (Added by TW Conv) Hypertension Other 3 Family history of hypertension - (Added by TW Conv) Heart disease Other 4 Family history of cardiac disorder - (Added by TW Conv) Cancer Paternal Grandfather ann Asthma Sister 1 Maegan Clotting disorder Sister 1 Maegan Coronary artery disease Sister 1 Maegan Depression Sister 1 Maegan Diabetes Sister 1 Maegan Heart disease Sister 1 Maegan Heart failure Sister 1 Maegan Hyperlipidemia Sister 1 Maegan Hypertension Sister 1 Maegan Lung disease Sister 1 Maegan Mental illness Sister 1 Maegan Obesity Sister 1 Maegan Arthritis Sister 2 Anyi Asthma Sister 2 Anyi COPD Sister 2 Anyi Clotting disorder Sister 2 Anyi Depression Sister 2 Anyi Heart disease Sister 2 Anyi Hypertension Sister 2 Anyi Relation Name Status Comments Father Eusebio (Age 57) Father's Brother ann Father's Sister mikhail Maternal Grandmother Dante Mother Bailey Alive Mother's Sister Estelita Other 1 Other 2 Other 3 Other 4 Paternal Grandfather ann Sister 1 Maegan Sister 2 Anyi Social History Tobacco Use Types Packs/Day Years Used Date Smoking Tobacco: Never Smokeless Tobacco: Never Tobacco Cessation:Counseling Given: Not Answered Alcohol Use Standard Drinks/Week Comments Yes 0 (1 standard drink = 0.6 oz pure alcohol) 1-2 drinks on special occasions. AUDIT-C Answer Date Recorded Q1: How often do you have a drink containing alc ohol? Monthly or less 06/29/2024 Q2: How many drinks containi ng alcohol do you have on a typical day when you are drinking? 1 or 2 06/29/2024 Q3: How often do you have si x or more drinks on one occasion? Never 06/29/2024 PHQ-2 Answer Date Recorded PHQ-2 Total Score (If total score is 3 or more points, staff should administer the PHQ-9) 0 10/31/2024 Hunger Vital Sign Answer Date Recorded Within the past 12 months, y ou worried that your food would run out before you got the money to buy more. Never true 06/30/19 25 Within the past 12 months, t he food you bought just didn't last and you didn't have money to get more. 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 [employer]IC[employer] Gender Identity Male 12/03/2019 11:44 PM CDT Sexual Orientation Not on file Occupation Industry Job Start Date Job End Date disabled Not on file Not on file Not on file Obstetrics History Last Filed Vital Signs Vital Sign Reading Time Taken Comments Blood Pressure 134/80 11/09/2024 11:19 AM CDT Pulse 76 11/09/2024 11:19 AM CDT Temperature 36.8 C (98.3 F) 10/31/2024 1:43 PM CDT Respiratory Rate 12 06/29/2024 12:42 PM CDT Oxygen Saturation 98% 10/31/2024 1:43 PM CDT Inhaled Oxygen Concentration - - Weight 93.4 kg (206 lb) 11/09/2024 11:19 AM CDT Height 180.3 cm (5' 11) 11/09/2024 11:19 AM CDT Body Mass Index 28.73 11/09/2024 11:19 AM CDT Plan of Treatment Health Maintenance Due Date Last Done Comments Hepatitis C Screening 1960 DTaP/Tdap/Td Vaccine (1 - Tdap) 10/22/1970 Pneumococcal vaccine 65+ (1 of 1 - PCV) 10/22/2009 Zoster Vaccine (1 of 2) 10/22/2009 Covid-19 Vaccine (7 - 2023-2 5 season) 2024 03/02/2024, 08/31/2023, 12/29/2021, Additional history exists Influenza Vaccine (#1) 2024 , 01/26/2023, 01/19/2022, Additional history exists Fall Risk Assessment 04/10/2025 04/10/2024, 03/25/2023, 01/29/2022, Additional history exists Well Visit 65+ 04/10/2025 04/10/2024, 12/10/2022, 01/29/2022 Depression Screening 10/31/2025 10/31/2024, 06/09/2024, 04/10/2024, Additional history exists Prostate Cancer Screening-PSA 08/30/2026, 03/28/2024, 03/23/2023, Additional history exists Colon Cancer Screening-Colonoscopy 07/09/2027 07/08/2022, 02/03/2018 Colon Cancer Screening-CT Colonography Discontinued 07/08/2022, 02/03/2018 Colon Cancer Screening-DNA Stool Discontinued 07/09/19, 02/03/2018 Colon Cancer Screening-FIT Discontinued 07/08/2022, Colon Cancer Screening-Sigmoidoscopy Discontinued 07/08/2022, 02/03/2018 Hepatitis B Screening Completed 11/15/2024 Goals Goal Patient Goal Type Associated Problems Recent Progress Patient-Stated? Author CCM Chronic Pain Care Plan Chronic Care Management No change(06/29 12:44 PM CDT) No Apurva Martinez, RN Note: Problem: Chronic Pain Goals: 1. Minimize further functional decline 2. Maximize quality of life 3. Control pain Strategies: - Activity/exercise program recommendation - Conservative stepwise pain medicine strategy with multi-disciplinary approach - Recommend healthy lifestyle strategies and compensatory methods as needed Medical Devices Implanted Type Area Formal Service Waiter Device Identifier Shelf Expiration Date Model / Serial / Lot Screws And Rods N/A: Back Procedures Procedure Name Priority Date/Time Associated Diagnosis Comments EGFR Routine 11/15/2024 2:56 PM CDT Routine general medical examination at a health care facility DIFFERENTIAL AUTO Routine 11/15/2024 2:5 6 PM CDT Thrombocytopenia (HCC) LIPID PANEL Routine 11/15/2024 2:56 PM CDT Routine general medical examination at a [facility] care facility COMPREHENSIVE METABOLIC PANEL Routine 11/15/2024 2:56 PM CDT Routine general medical examination at a [facility] care facility CBC WITH AUTO DIFFERENTIAL Routine 11/15/2024 2:56 PM CDT Thrombocytopenia (HCC) HEPATITIS B SURFACE ANTIGEN Routine 11/15/2024 2:56 PM CDT Need for hepatitis B screening test HEPATITIS B SURFACE ANTIBODY (IMMUNE STATUS) Routine 11/15/2024 2:56 PM CDT Need for hepatitis B screening test HEPATITIS B CORE ANTIBODY, TOTAL Routine 11/15/2024 2:56 PM CDT Need for hepatitis B screening test URINE CULTURE Routine 10/14/2024 11:36 AM CDT BPH with obstruction/lower urinary tract symptoms POCT LIPID PANEL Routine 10/05/2024 2:33 PM CDT Hyperlipidemia, unspecified hyperlipidemia type CT PELVIS W WO CONTRAST Schedule Routine, Read Routine (OP Routine) 09/19/2024 3:39 PM CDT BPH with obstruction/lower urinary tract symptoms POCT CREATININE FOR CONTRAST EVALUATION Routine 09/19/2024 3:31 PM CDT FL FLUORO GUIDED INJECTION SHOULDER GLENOHUMERAL RIGHT Schedule Routine, Read Routine (OP Routine) 09/08/2024 1:50 PM CDT Chronic right shoulder pain MEASURE POST VOID RESIDUAL Routine 08/31/2024 1:16 PM CDT Elevated PSA PSA DIAGNOSTIC Routine 08/30/2024 1:46 PM CDT Elevated PSA HM COLONOSCOPY Routine 07/08/2022 from Last 3 Months or Most Recently Relevant to Health Maintenance Results * eGFR (11/15/2024 2:56 PM CDT) eGFR 90 >=60 mL/min/1. 73 m2 Comment: Interpretive Data Reference Interval Normal >/= 90 mL/min/1.73m2 Mildly decreased* 60 - 89 mL/min/1.73m2 Mildly to moderately decreased 45 - 59 mL/min/1.73m2 Moderately to severely decreased 30 - 44 mL/min/1.73m2 Severely decreased 15 - 29 mL/min/1.73m2 Kidney Failure < 15 mL/min/1.73m2 *Relative to young adult level Estimated glomerular filtration rate is determined by the 2020 CKD-EPI equation recommended by the National Kidney Foundation (A Unifying Approach to GFR Estimation: Recommendations of the NKF-ASK Task Force on Reassessing the Inclusion of Race in Diagnosing Kidney Disease, JASN 2020). The CKD-EPI equation should not be used for patients with unstable renal function and has not been validated in children and those over 70. Current interpretive data was last reviewed 2021. Blood 11/15/2024 2:56 PM CDT 11/15/2024 3:18 PM CDT us Melania Gavin MD LAB BLOOD ORD ERABLES Final Result [facility] [place] [address] * Differential, auto (11/15/2024 2:56 PM CDT) Neutrophil abs 3.82 1.50 - 6.50 K/cumm Imm gran abs 0.01 0.00 - 0.10 K/cumm [facility] Lymphocyte abs 0.85 0.80 - 3.30 K/cumm [facility] Monocyte abs 0.56 0.20 - 0.80 K/cumm [facility] Eosinophil abs 0.17 0.00 - 0.50 K/cumm [facility] Basophil abs 0.03 0.00 - 0.10 K/cumm [facility] Neutrophil pct 70.2 % [facility] Comment: Interpretive Data Percent cell count reference ranges are not reported, since discordance with absolute values may lead to misinterpretation of CBC data. Current Interpretive Data was last revised on 2017. Imm gran pct 0.2 % [facility] Comment: Interpretive Data Percent cell count reference ranges are not reported, since discordance with absolute values may lead to misinterpretation of CBC data. Current Interpretive Data was last revised on 2017. Lymphocyte pct 15.6 % [facility] Comment: Interpretive Data Percent cell count reference ranges are not reported, since discordance with absolute values may lead to misinterpretation of CBC data. Current Interpretive Data was last revised on 2017. Monocyte pct 10.3 % [facility] Comment: Interpretive Data Percent cell count reference ranges are not reported, since discordance with absolute values may lead to misinterpretation of CBC data. Current Interpretive Data was last revised on 2017. Eosinophil pct 3.1 % [facility] Comment: Interpretive Data Percent cell count reference ranges are not reported, since discordance with absolute values may lead to misinterpretation of CBC data. Current Interpretive Data was last revised on 2017. Basophil pct 0.6 % [facility] Comment: Interpretive Data Percent cell count reference ranges are not reported, since discordance with absolute values may lead to misinterpretation of CBC data. Current Interpretive Data was last revised on 2017. Blood 11/15/2024 2:56 PM CDT 11/15/2024 3:11 PM CDT us Toshia Sun MD LAB BLOOD ORDERABLES Final Result [facility] [place] [address] * (ABNORMAL) CBC with auto differential (11/15/2024 2:56 PM CDT) [facility] WBC 5.44 3.80 - 9.90 K/cumm Hgb 12.8(L) 13.0 - 17.5 g/dL [facility] Hct 37.8(L) 38.9 - 50.3 % [facility] Plt 105(L) 150 - 400 K/cumm [facility] MPV 11.0 9.1 - 12.3 fL [facility] RBC 4.13(L) 4.30 - 5.80 M/cumm [facility] MCV 91.5 81.3 - 96.4 fL [facility] MCH 31.0 27.1 - 33.3 pg [facility] MCHC 33.9 32.3 - 35.7 g/dL [facility] RDW CV 12.8 11.1 - 14.9 % [facility] RDW SD 42.5 35.7 - 48.1 fL [facility] NRBC abs 0.00 0.00 - 0.01 K/cumm [facility] Blood 11/15/2024 2:56 PM CDT 11/15/2024 3:11 PM CDT us Toshia Sun MD LAB BLOOD ORDERABLES Final Result [facility] [place] [address] * Hepatitis B core antibody, total Blood (11/15/2024 2:56 PM CDT) [facility] Hep B core IgG/IgM Nonreactive Nonreactive Blood 11/15/2024 2:56 PM CDT 11/15/2024 3:11 PM CDT Melania Gavin MD LAB [facility] - GENERAL ORDERABLES Final Result Performing Organization Address City/[facility] de Phone Number [facility] [place] [address] * Hepatitis B surface antibody (immune status) Blood (11/15/2024 2:56 PM CDT) Pathologist [facility] HBsAb (immune status) Nonreactive Comment:This result is consi stent with a lack of immunity to Hepatitis B Virus when used in the setting of routine screening. Current interpretative data was last revised on 21 Blood 11/15/2024 2:56 PM CDT 11/15/2024 3:11 PM CDT us Melania Gavin MD LAB [facility] - GENERAL ORDERABLES Final Result Performing Organization Address City/[facility] Co de Phone Number [facility] [place] [address] * Hepatitis B Surface Antigen Blood (11/15/2024 2:56 PM CDT) [facility] HepBsAg Nonreactive Nonreactive Blood 11/15/2024 2:56 PM CDT 11/15/2024 3:11 PM CDT Melania Gavin MD LAB [facility] - GENERAL ORDERABLES Final Result Performing Organization Address City/[facility] Co de Phone Number [facility] [place] [address] * Lipid panel (11/15/2024 2:56 PM CDT) [facility] Cholesterol 149 30 - 199 mg/dL Comment: Interpretive Data Ages < or = 19 years Acceptable: <170 mg/dL Borderline high: 170-199 mg/dL High: >or= 200 mg/dL Ages > or = 20 years Desirable: <200 mg/dL Borderline high: 200-239 mg/dL High: >or= 240 mg/dL Literature References: 1. Expert Panel on Integrated Guidelines for Cardiovascular Health and Risk Reduction in Children and Adolescents. Pediatrics 2011;128:S213 2. NCEP Expert Panel. Circulation 2004;110:227 Current Interpretive Data was last revised on 2017. Triglycerides 91 <=149 mg/dL [facility] Comment: Interpretive Data Ages < or = 9 years Acceptable: <75 mg/dL Borderline high: 75-99 mg/dL High: >or= 100 mg/dL Ages 10 to 20 years Acceptable: <90 mg/dL Borderline high: 90-129 mg/dL High: >or= 130 mg/dL Ages > or = 20 years Desirable: <150 mg/dL Borderline high: 150-199 mg/dL High: 200-499 mg/dL Very high: >or= 499 mg/dL Literature References: 1. Expert Panel on Integrated Guidelines for Cardiovascular Health and Risk Reduction in Children and Adolescents. Pediatrics 2011;128:S213 2. NCEP Expert Panel. Circulation 2004;110:227 Current Interpretive Data was last revised on 2017. HDL 64 >=40 mg/dL [facility] Comment: Interpretive Data Ages < or = 19 years Acceptable: >45 mg/dL Borderline low: 40-45 mg/dL Low: <40 mg/dL Ages > or = 20 years Desirable: >or= 60 mg/dL Low: <40 mg/dL Literature References: 1. Expert Panel on Integrated Guidelines for Cardiovascular Health and Risk Reduction in Children and Adolescents. Pediatrics 2011;128:S213 2. NCEP Expert Panel. Circulation 2004;110:227 Current Interpretive Data was last revised on 2017. LDL, calculated 68 <=129 mg/dL [facility] Comment: Interpretive Data Ages < or = 19 years Acceptable: <110 mg/dL Borderline high: 110-129 mg/dL High: >or= 130 mg/dL Ages > or = 20 years Optimal: <100 mg/dL Near optimal: 100-129 mg/dL Borderline high: 130-159 mg/dL High: >160 mg/dL Calculated using the Weir LDL-C estimating equation. This equation was implemented on 2023. Prior to this date LDL-C was estimated using the Friedewald equation. Literature References: 1. Expert Panel on Integrated Guidelines for Cardiovascular Health and Risk Reduction in Children and Adolescents. Pediatrics 2011;128:S213 2. NCEP Expert Panel. Circulation 2004;110:227 3. Destin Asher et al. JONATHAN Cardiol. 2019August 17;5(5):540-548. doi: 10.1001/jamacardio.2020.0013 Current Interpretive Data was last revised on 2023. Non-HDL Cholesterol 85 mg/dL [facility] Comment: Interpretive Data Ages < or = 19 years Acceptable: <120 mg/dL Borderline high: 120-144 mg/dL High: >145 mg/dL Ages > or = 20 years When triglycerides are >200 mg/dL, Non-HDL cholesterol is a secondary target of therapy with treatment goals that are 30 mg/dL greater than the LDL cholesterol target. Literature References: 1. Expert Panel on Integrated Guidelines for Cardiovascular Health and Risk Reduction in Children and Adolescents. Pediatrics 2011;128:S213 2. NCEP Expert Panel. Circulation 2004;110:227 Current Interpretive Data was last revised on 2017. Chol/HDL ratio 2 [facility] Blood 11/15/2024 2:56 PM CDT 11/15/2024 3:11 PM CDT us Melania Gavin MD LAB BLOOD ORD ERABLES Final Result [facility] [place] [address] * Comprehensive metabolic panel (11/15/2024 2:56 PM CDT) Sodium 141 135 - 145 mmol/L Potassium, pl 4.7 3.3 - 4.9 mmol/L [facility] Chloride 108 97 - 110 mmol/L [facility] CO2 28 22 - 32 mmol/L [facility] Anion gap 5 2 - 15 mmol/L [facility] BUN 21 6 - 25 mg/dL [facility] Creatinine 0.94 0.80 - 1.30 mg/dL [facility] Glucose 92 70 - 199 mg/dL [facility] Comment: Interpretive Data Fasting glucose >/= 126 mg/dl is diagnostic for diabetes. Fasting is defined as no caloric intake for at least 8 hours. Fasting glucose between 100 mg/dl to 125 mg/dl is diagnostic of prediabetes. In a patient with classic symptoms of hyperglycemia or hyperglycemic crisis, a random glucose >/= 200 mg/dl is diagnostic for diabetes. In the absence of unequivocal hyperglycemia, results should be confirmed by repeat testing. The classification and Diagnosis of Diabetes Diabetes Care 202; 46: S19-S40. Current interpretive data was last revised 2022. Calcium 9.4 8.5 - 10.3 mg/dL [facility] Bilirubin, total 0.5 0.1 - 1.2 mg/dL [facility] Protein, pl 6.6 6.5 - 8.5 g/dL [facility] Albumin 4.4 3.5 - 5.0 g/dL [facility] Alk phos 63 40 - 130 Units/L [facility] ALT 33 7 - 55 Units/L [facility] AST 35 10 - 50 Units/L [facility] Blood 11/15/2024 2:56 PM CDT 11/15/2024 3:11 PM CDT Melania Gavin MD LAB BLOOD ORD ERABLES Final Result [facility] [place] [address] * Urine culture Urine, bladder (10/14/2024 11:36 AM CDT) Report Final Report: No growth Comment:Testing performed by : [facility], [address] [facility], [place]., [address] Urine, bladder 10/14/2024 11 :36 AM CDT 10/14/2024 7:24 PM CDT Narrative [facility]BIN - 10/15/2024 8:08 PM CDT Testing performed by [facility] ([phone]) Ruben Morrison MD LAB MICROBIOLOGY - GENERAL ORDER TYRONE Final Result [facility] [id number] [facility] Department [place] [address] * POCT lipid panel (10/05/2024 2:33 PM CDT) HDL, POC 65 >=40 mg/dL Triglycerides, POC 78 <=149 mg/dL LDL Cholesterol POC 51 <=129 mg/dL Chol/HDL Ratio, POC 2.0 NONE Non-HDL Cholesterol, POC 67 NONE mg/dL Cholesterol Total, POC 132 30 - 199 mg/dL Capillary blood 10/05/2024 2 :33 PM CDT Ta Nolen MD POINT OF CARE TEST ORDERA BLES Final Result * CT Pelvis W WO Contrast (09/19/2024 3:39 PM CDT) Anatomical Region Laterality Modality Body N/A Computed Tomogra phy 10/06/2024 12:5 5 PM CDT Narrative 10/06/2024 1:00 PM CDT EXAM DESCRIPTION: CT PELVIS W WO CONTRAST REASON FOR STUDY: Lower urinary tract symptoms. BPH. TECHNIQUE: CT scan of the pelvis performed without and with intravenous and without oral contrast using helical scanning technique with dynamic intravenous contrast injection. Reconstructed coronal and sagittal MPR images reviewed. All images stored on PACS. Automated exposure control was used as a dose optimization technique for this examination. CONTRAST TYPE/DOSE: 100mL of IOVERSOL 350 MG IODINE/ML INTRAVENOUS SYRINGE injected via intravenous COMPARISON: CT lumbar spine 12/02/2023 FINDINGS: LOWER ABDOMEN: No acute findings. URINARY: There is mild circumferential bladder wall thickening. GI: No dilated bowel loops. No obvious wall thickening. The appendix is not seen with certainty. No significant diverticular disease. PERITONEUM: No ascites or free air. No hernia. RETROPERITONEUM: No mass or adenopathy. REPRODUCTIVE: No significant abnormality. VASCULATURE: No aortic aneurysm. MUSCULOSKELETAL: Pedicle screw and awa fixation at L4-S1 is noted. OTHER: No other abnormality. IMPRESSION: 1. Mild circumferential bladder wall thickening may be secondary to cystitis or chronic outlet obstruction. Correlation with urinalysis recommended. THIS IS AN ELECTRONICALLY VERIFIED FINAL REPORT 10/06/2024 1:00 PM - Electronically signed by Doron Paz M.D. LB: LB Report ID: [id number] Reading Location: [id number] Procedure Note Doron Paz MD - 10/06/2024 EXAM DESCRIPTION: CT PELVIS W WO CONTRAST REASON FOR STUDY: Lower urinary tract symptoms. BPH. TECHNIQUE: CT scan of the pelvis performed without and with intravenousand without oral contrast using helical scanning technique with dynamic intravenous contrast injection. Reconstructed coronal and sagittal MPRimages reviewed. All images stored on PACS. Automated exposure control was usedas a dose optimization technique for this examination. CONTRAST TYPE/DOSE: 100mL of IOVERSOL 350 MG IODINE/ML INTRAVENOUSSYRINGE injected via intravenous COMPARISON: CT lumbar spine 12/02/2023 FINDINGS: LOWER ABDOMEN: No acute findings. URINARY: There is mild circumferential bladder wall thickening. GI: No dilated bowel loops. No obvious wall thickening. The appendix isnot seen with certainty. No significant diverticular disease. PERITONEUM: No ascites or free air. No hernia. RETROPERITONEUM: No mass or adenopathy. REPRODUCTIVE: No significant abnormality. VASCULATURE: No aortic aneurysm. MUSCULOSKELETAL: Pedicle screw and awa fixation at L4-S1 is noted. OTHER: No other abnormality. IMPRESSION: 1. Mild circumferential bladder wall thickening may be secondary tocystitis or chronic outlet obstruction. Correlation with urinalysis recommended. THIS IS AN ELECTRONICALLY VERIFIED FINAL REPORT 10/06/2024 1:00 PM - Electronically signed by Doron Paz M.D. LB: ARBEN Report ID: [id number] Reading Location: [id number] Ruben Morrison MD IM CT PROCEDURES Final Result * POCT creatinine for contrast evaluation (09/19/2024 3:31 PM CDT) Creatinine POC 0.90 0.80 - 1.30 mg/dL Comment:Testing performed by : [facility], [address] [place] [address], [place]., [address] Blood 09/19/2024 3:31 PM CDT 09/19/2024 3:31 PM CDT us Ruben Morrison MD POINT OF CARE TEST ORDERABLES Fi nal Result [facility] [address] [facility] Department [place] [address] * FL Fluoro Guided Injection Shoulder Glenohumeral (GH) Joint Right (09/08/2024 1:50 PM CDT) Anatomical Region Laterality Modality Body Right Computed Radiogr aphy, Computed Radiography 09/08/2024 2:22 PM CDT Narrative 09/08/2024 2:25 PM CDT EXAM DESCRIPTION: FL FLUORO GUIDED INJECTION SHOULDER GLENOHUMERAL RIGHT REASON FOR STUDY: pain Shoulder pain. COMPARISON: 07/28/2024 RADIATION DOSE: Needle placement was documented with a fluoroscopic image. Dose: 27.78 uGym? Dose Area Product (DAP) TECHNIQUE/FINDINGS: The risks, benefits, and alternatives of the procedure were explained to the patient and informed consent was obtained. The area was prepped and draped in the usual sterile fashion. 1% lidocaine was used for local anesthesia. A 22-gauge spinal needle was directed into the right shoulder joint space and a small amount of Omnipaque 240 was injected to confirm intra-articular placement. 40 mg of Kenalog and 2 mL of 0.25% bupivacaine were injected without complication. Patient reported no significant symptoms following the injection. IMPRESSION: Fluoroscopically guided right shoulder steroid injection. THIS IS AN ELECTRONICALLY VERIFIED FINAL REPORT 09/08/2024 2:25 PM - Electronically signed by Willi Ashraf M.D. KR: JULIAN Report ID: [id number] Reading Location: [id number] Procedure Note Willi Ashraf MD - 09/08/2024 EXAM DESCRIPTION: FL FLUORO GUIDED INJECTION SHOULDER GLENOHUMERAL RIGHT REASON FOR STUDY: pain Shoulder pain. COMPARISON: 07/28/2024 RADIATION DOSE: Needle placement was documented with a fluoroscopicimage. Dose: 27.78 uGym? Dose Area Product (DAP) TECHNIQUE/FINDINGS: The risks, benefits, and alternatives of the procedure were explained to the patient and informed consent was obtained. The areawas prepped and draped in the usual sterile fashion. 1% lidocaine was usedfor local anesthesia. A 22-gauge spinal needle was directed into the right shoulder joint space and a small amount of Omnipaque 240 was injected to confirm intra-articular placement. 40 mg of Kenalog and 2 mL of 0.25% bupivacaine were injected without complication. Patient reported no significant symptoms following the injection. IMPRESSION: Fluoroscopically guided right shoulder steroid injection. THIS IS AN ELECTRONICALLY VERIFIED FINAL REPORT 09/08/2024 2:25 PM - Electronically signed by Willi Ashraf M.D. KR: KR Report ID: [id number] Reading Location: [place] [address] Donnie Carvajal MD IMG FLUOROSCOPY PROCEDU RES Final Result * Measure post void residual (08/31/2024 1:16 PM CDT) Venessa Rosado, [facility] - 08/31/2024 1:16 PM CDT Measurement of Post Void Residual urine and/or bladder capacity PVR = 8 ml Ruben Morrison MD NURSING ASSESSMENTS Final Result * PSA diagnostic (08/30/2024 1:46 PM CDT) PSA-Total 2.55 <=5.40 ng/mL Comment: Interpretive Data AGE SEX REFERENCE INTERVAL 0 minutes-150 years Female None 0 minutes-49 years Male None 50-59 years Male 0-3.90 60-69 years Male 0-5.40 70-79 years Male 0-6.20 80-150 years Male 0-6.20 The Hoang PSA Total assay procedure was used. Results from different manufacturers or methods may not be comparable. Serial testing should be performed using the same method. Current interpretive data last revised 21. Blood 08/30/2024 1:46 PM CDT 08/30/2024 2:25 PM CDT Ruben Morrison MD LAB BLOOD ORDERABLES Final Resul t [facility] [place] [address] * COLONOSCOPY (07/08/2022) Scribed Colonoscopy Normal Historical Provider HEALTH MAINTENANCE Final Result from Last 3 Months or Most Recently Relevant to Health Maintenance Insurance MEDICARE [facility] MEDICARE SUPPLEMENT MEDICARE [facility] MEDICARE [employer] MEDICARE SUPPLEMENT Care Teams Nurses Supervisor Relationship Specialty Start Date End Date Melania Gavin MD PCP - General Internal Medicine 12/13/20
--- OUTSIDE RECORDS SUMMARY | 2024-11-16 17:59 | XMS_ITS | Encounter Summary ---
Author Organization [facility] Address [address] [place] [address] Phone Care Team Providers Care Mock Up Assembler Name Role Phone Melania Gavin MD Primary Care Provider Naya Monson MA Unavailable [phone] Encounter Details Date Type Department Care Team (Latest Contact Info) Description 06/14/2017 Orders Only [facility] Scanning, Provider Social History Tobacco Use Types Packs/Day Years Used Date Smoking Tobacco: Never Sex and Gender Information Value Date Recorded Sex Assigned at Not on file Legal Sex Male 12:11 AM ERP MANAGER Gender Identity Male 12/03/2019 11:44 PM CDT Sexual Orientation Not on file documented as of this encounter Plan of Treatment Not on file documented as of this encounter Procedures Procedure Name Priority Date/Time Associated Diagnosis Comments CARDIOLOGY DOCUMENT SCAN 06/14/2017 documented in this encounter Results * SCAN - CARDIOLOGY (06/14/2017) Anatomical Region Laterality Modality Other us Provider Scanning [facility] CARDIAC SERVICES PROCEDURES Edited Result - Final documented in this encounter Visit Diagnoses Not [...] COVID: Suspected 06/09/2024 06/09/2024 06/09/2024 2:18 PM ERP MANAGER documented as of this encounter Care Teams Mock Up Assembler Relationship Specialty Start Date End Date Melania Gavin MD PCP - General Internal Medicine 12/13/20 Naya Monson MA [address] [place] [address] [address] [place] [address] ACO Care Him Coder 11/18/22 11/19/22 documented as of this encounter
--- OUTSIDE RECORDS SUMMARY | 2024-11-16 17:59 | XMS_ITS | Encounter Summary ---
Author Organization [facility] Healthcare Address [address] [place] [address] Care Team Providers Care Manager Fine Dining Name Role Phone Melania Gavin MD Primary Care Provider Encounter Details Date Type Department Care Team (Late st Contact Info) Description 11/15/2024 Results Follow-Up [facility] Primary Care [address] [place] [phone] Melania Gavin MD [address] [place] [phone] Comprehensive metabolic panel, Lipid panel, Hepatitis B core antibody, total Blood, Additional followed-up results: 3 Social History Tobacco Use Types Packs/Day Years Used Date Smoking Tobacco: Never Smokeless Tobacco: Never Alcohol Use Standard Drinks/Week Comments Yes 0 [...] on file 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 Author CCM Chronic Pain Care Plan Chronic Care Management No change(06/29 12:44 PM CDT) No Apurva Martinez, ANTHONY Note: Problem: Chronic Pain Goals: 1. Minimize further functional decline 2. Maximize quality of life 3. Control pain Strategies: - Activity/exercise program recommendation - Conservative stepwise pain medicine strategy with multi-disciplinary approach - Recommend healthy lifestyle strategies and compensatory methods as needed documented as of this encounter Visit Diagnoses Not on filedocumented in this encounter Care Teams Manager Fine Dining Relationship Specialty Start Date End Date Melania Gavin MD PCP - General Internal Medicine 12/13/20 documented as of this encounter
--- OUTSIDE RECORDS SUMMARY | 2024-11-16 17:59 | XMS_ITS | Clinical Summary ---
Author Organization [facility] Address [address] [facility] [place] [address] Care Team Providers Care Sales Representative Health Insurance Name Role Phone Melania Gavin MD Primary Care Provider Allergies No known active allergies Medications metoprolol succinate (TOPROL XL) 100 mg Extended Release 24 hour tablet Take 100 mg by mouth daily. Active simvastatin (ZOCOR) 20 mg tablet Take 20 mg by mouth late in the day. Active ibuprofen (MOTRIN) 400 mg tablet Take 400 mg by mouth every 6 hours as needed for Pain, Mild. Active tamsulosin (FLOMAX) 0.4 mg capsuleIndication s:twice daily Take 0.4 mg by mouth every 12 hours. Active gabapentin (NEURONTIN) 300 mg capsule Take 300 mg by mouth 3 times daily. Take one in the am, one in the afternoon and two tablets in the evening. Active baclofen (LIORESAL) 10 mg tablet Take 10 mg by mouth 3 times daily as needed for Pain. Active docusate sodium (COLACE) 100 mg capsule Take 300 mg by mouth daily. Active simethicone 125 mg Tablet, Chewable Take by mouth. Activ e MULTIVIT-MINERALS /FA/LYCOPENE (ONE-A-DAY MEN'S MULTIVITAMIN ORAL) Take 1 Capsule by mouth. Active vit B cmplx 3-FA-Vit C-Biotin (RENAVITE-RX RX) 1-60-300 mg-mg-mcg Tablet Take 1 Tablet by mouth daily. Active cholecalciferol, vitamin D3, 5,000 unit Take 5,000 Units by mouth daily. Active rOPINIRole (REQUIP) 0.5 mg tablet Take one in the evening and one at bedtime. 11 8 Active fluticasone (FLONASE) 50 mcg/spray [place], Suspension 8 Active potassium gluconate 550 mg (90 mg) Tablet 550 mg. Activ e ueejpblhjzl-O4-Xe swellia serr 1,500-400-100 mg-unit-mg Tablet Take 1 Tablet by mouth. Active Biotin 1 mg Tablet Take 5,000 mcg by mouth. Active albuterol HFA 90 mcg inhaler 9 Active cyanocobalamin (VITAMIN B-12) 1,000 mcg Tablet, Sublingual Take 3,000 mcg by mouth. Active magnesium oxide 500 mg Capsule Take by mouth. Active montelukast (SINGULAIR) 10 mg tablet Take 10 mg by mouth daily at bedtime. 1 Active tadalafiL (CIALIS) 5 mg tablet Take 5 mg by mouth daily. 1 Active coenzyme Q10 100 mg Capsule Take 100 mg by mouth daily. Active DULoxetine (CYMBALTA) 30 mg Capsule, Delayed Release(E.C.) 2 Active FeroSuL 325 mg (65 mg iron) tablet Take 325 mg by mouth daily with breakfast. 2 Active famotidine (PEPCID) 20 mg tablet Take 20 mg by mouth daily. 3 Active calcium citrate 250 mg calcium Tablet Take 750 mg by mouth. Active alendronate (FOSAMAX) 70 mg tablet Take 70 mg by mouth every 7 days. 4 Active aspirin (ECOTRIN EC) 81 mg Tablet, Delayed Release (E.C.) Take 81 mg by mouth daily. Active atorvastatin (LIPITOR) 40 mg tablet Take 40 mg by mouth daily. 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 10/06/2016 Hyperlipemia 10/06/2016 Asthma 10/06/2016 Pancytopenia 10/06/2016 Encounters Date Type Department Care Team Description 11/01/2024 External Device Data STL ABSTRACTION Provider, Abstract 11/01/2024 External Device Data STL ABSTRACTION Provider, Abstract 10/03/2024 External Device Data ST[facility] ABSTRACTION Provider, Abstract 09/06/2024 External Device Data STL ABSTRACTION Provider, Abstract 09/06/2024 External Device Data ST[facility] ABSTRACTION Provider, Abstract from Last 3 Months Family History Medical History Relation Name Comments Heart Disease Father qian rubio High Cholesterol Father qian rubio Hypertension Father qian rubio Anemia Mother palmira rubio Depression Mother palmira rubio High Cholesterol Mother palmira rubio Hypertension Mother palmira rubio Osteoporosis Mother palmira rubio Stroke Mother palmira rubio Thyroid Disease Mother palmira rubio Depression Sister 1 nikko Heart Disease Sister 1 nikko High Cholesterol Sister 1 nikko Hypertension Sister 1 nikko Asthma Sister 3 shashi Depression Sister 3 shashi Heart Disease Sister 3 shashi High Cholesterol Sister 3 shashi Hypertension Sister 3 shashi Respiratory Disease Sister 3 shashi Relation Name Status Comments Father qian rubio Mother palmira rubio Alive Sister 1 nikko Alive Sister 2 Alive Sister 3 shashi Social History Tobacco Use Types Packs/Day Years Used Date Smoking Tobacco: Never Smokeless Tobacco: Never Tobacco Cessation:Counseling Given: Not Answered Alcohol Use Standard Drinks/Week Comments Yes 1 (1 standard drink = 0.6 oz pur e alcohol) occass Sex and Gender Information Value Date Recorded Sex Assigned at Not on file 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 Sex Male 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 Gender Identity Not on file Sexual Orientation Not on file Occupation Industry Job Start Date Job End Date Not on file Not on file Not on file Not on file Last Filed Vital Signs Vital Sign Reading Time Taken Comments Blood Pressure 142/82 01/05/2024 2:14 PM CDT Pulse 60 01/05/2024 2:14 PM CDT Temperature 36.8 C (98.2 F) 01/05/2024 2:14 PM CDT Respiratory Rate 16 01/05/2024 2:14 PM CDT Oxygen Saturation 96% 01/05/2024 2:14 PM CDT Inhaled Oxygen Concentration - - Weight 93.9 kg (207 lb) 01/05/2024 2:14 PM CDT Height 180.3 cm (5' 11) 11/04/2021 11:38 AM CDT Body Mass Index 28.87 11/04/2021 11:38 AM CDT Plan of Treatment Upcoming Encounters Date Type Department Care Team (Late st Contact Info) Description 01/04/2025 2:15 PM CDT Office Visit [facility] Oncology and Hematology - [place] [address] [facility] [address] [place] [address] Vijay Dumont MD [address] [facility] [address] [place] [address] Health Maintenance Due Date Last Done Comments Pre-Diabetes and Diabetes Screening 1960 DTAP/TDAP/TD VACCINES (1 - Tdap) 10/22/1978 PNEUMOCOCCAL VACCINE 50+ YEA RS (1 of 2 - PCV) 10/22/1978 FIT-DNA Q 3 years 10/22/2004 FIT/FOBT Q 1 year 10/22/2004 Flex Sig/CT Colonography Q 5 years 10/22/2004 ZOSTER VACCINE (1 of 2) 10/22/2009 RSV VACCINE (60+ or ) (1 - Risk 60-74 years 1-dose series) 2019 COVID-19 Vaccine (6 - 2023-2 5 season) 2023 08/31/2023, 12/29/2021, 01/19/2021, Additional history exists INFLUENZA VACCINE (#1) 2024 , 02/07/2020, 02/07/2020, Additional history exists COLORECTAL SCREENING 07/08/2032 07/08/2022, 01/26/2018, 01/26/2018, Additional history exists Colorectal Cancer Screening 07/08/2032 Procedures Procedure Name Priority Date/Time Associated Diagnosis Comments COLONOSCOPY REPORT 01/26/2018 10 :55 AM CDT from Last 3 Months or Most Recently Relevant to Health Maintenance Results * COLONOSCOPY REPORT (01/26/2018 10:55 AM CDT) Narrative Procedure Note Gerardo Kumar MD - 01/26/2018 10:55 AM CDT [facility] Endoscopy Patient Name: Qian Rubio Procedure Date: 01/26/2018 Date of : 1960 Admit Type: Outpatient Attending MD: Gerardo Kumar MD Procedure: Colonoscopy Indications: Colon cancer screening in patient at increased risk: Family history of 1st-degree relative with colon polyps Providers: Gerardo Kumar MD Referring MD: Jorge Dangelo MD Medicines: Monitored Anesthesia Care Complications: No immediate complications. Procedure: Informed consent was obtained for the procedure, including moderate sedation after risks were discussed. Based on the pre-procedure assessment, including review of the patient's medical history, medications, allergies, and review of systems, the patient was deemed to be an appropriate candidate for sedation. A timeout was performed. Continuous ECG monitoring, pulse oximetry, blood pressure monitoring, and direct observation were performed. The Colonoscope was introduced through the anus and advanced to the cecum, identified by appendiceal orifice and ileocecal valve. Findings: The entire examined colon appeared normal. Impression: - The entire examined colon is normal. - No specimens collected. Recommendation: - Repeat colonoscopy in 5 years for surveillance. Procedure Code(s): --- Professional --- 95976, Colonoscopy, flexible; diagnostic, including collection of specimen(s) by brushing or washing, when performed (separate procedure) CPT copyright 2016 [employer]. All rights reserved. The codes documented in this report are preliminary and upon community health nursing director review may be revised to meet current compliance requirements. Gerardo Kumar MD 01/26/2018 10:54:54 AM This report has been signed electronically. Number of Addenda: [phone] [id number] [place] [address] Gerardo Kumar MD GI PROCEDURE ORDERABLES Final Result from Last 3 Months or Most Recently Relevant to Health Maintenance Insurance [facility] SUPP MEDICARE PART A AND B [facility] SUPP Care Teams Sales Representative Health Insurance Relationship Specialty Start Date End Date Melania Gavin MD [address] [place] [phone] PCP - General Internal Medicine 04/03/21
--- OUTSIDE RECORDS SUMMARY | 2024-11-16 17:59 | XMS_ITS | Encounter Summary ---
Author Organization [facility] Address [address] [place] [address] Phone Care Team Providers Care Stock Order Lister Name Role Phone Melania Gavin MD Primary Care Provider Naya Monson MA Unavailable [phone] Encounter Details Date Type Department Care Team (Latest Contact Info) Description 09/02/2017 Orders Only [facility] Scanning, Provider Social History Tobacco Use Types Packs/Day Years Used Date Smoking Tobacco: Never Sex and Gender Information Value Date Recorded Sex Assigned at Not on file 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 Gender Identity Male 12/03/2019 11:44 PM CDT Sexual Orientation Not on file documented as of this encounter Plan of Treatment Not on file documented as of this encounter Procedures Procedure Name Priority Date/Time Associated Diagnosis Comments SLEEP LAB/STUDY - RESULT 09/02/2017 documented in this encounter Results * SLEEP LAB/STUDY - RESULT (09/02/2017) us Provider Scanning Final Result documented in this encounter Visit [...] COVID: Suspected 06/09/2024 06/09/2024 06/09/2024 2:18 PM SOUND ENGINEER AUDIO CONTROL documented as of this encounter Care Teams Stock Order Lister Relationship Specialty Start Date End Date Melania Gavin MD PCP - General Internal Medicine 12/13/20 Naya Monson MA [address] [place] [address] [address] [place] [phone] ACO Care Professor Of Communication Arts 11/18/22 11/19/22 documented as of this encounter
--- OUTSIDE RECORDS SUMMARY | 2024-11-16 17:59 | XMS_ITS | Encounter Summary ---
Author Organization [facility] Healthcare Address [address] [place] [address] Care Team Providers Care Farm Boss Name Role Phone Melania Gavin MD Primary Care Provider ErmiasNaya MA Unavailable [phone] Encounter Details Date Type Department Care Team (Late st Contact Info) Description 04/30/2022 Telephone [facility] [address] [facility] [address] [place], [place] [id number] Toshia Sun MD [address] [facility] [id number] [place], [place] [id number] Social History Tobacco Use Types Packs/Day Years Used Date Smoking Tobacco: Never Smokeless Tobacco: Never Alcohol Use Standard Drinks/Week Comments Yes 0 (1 standard drink = 0.6 oz pure alcohol) 1-2 drinks on special occasions. AUDIT-C Answer Date Recorded Q1: How often do you have a drink containing alc ohol? 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 02/08/2023 02/08/2023 05/09/2023 3:[address] COVID: Suspected 01/19/2024 01/19/2024 01/19/2024 11:56 AM CDT COVID: Suspected 06/09/2024 06/09/2024 06/09/2024 2:18 PM ELECTRICIAN HELPER documented as of this encounter Care Teams Farm Boss Relationship Specialty Start Date End Date Melania Gavin MD PCP - General Internal Medicine 12/13/20 Naya Monson MA [address] [facility] [address] [place] [phone] ACO Care Machine Tool Operator 11/18/22 11/19/22 documented as of this encounter
--- OUTSIDE RECORDS SUMMARY | 2024-11-16 17:59 | XMS_ITS | Encounter Summary ---
Author Organization [facility] Address [address] [place] [address] Phone Care Team Providers Care Health Education Assistant Name Role Phone Melania Gavin MD Primary Care Provider Naya Monson MA Unavailable [phone] Encounter Details Date Type Department Care Team (Latest Contact Info) Description 05/28/2017 Orders Only [facility] Scanning, Provider Social History Tobacco Use Types Packs/Day Years Used Date Smoking Tobacco: Never Sex and Gender Information Value Date Recorded Sex Assigned at Not on file 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 Gender Identity Male 12/03/2019 11:44 PM CDT Sexual Orientation Not on file documented as of this encounter Plan of Treatment Not on file documented as of this encounter Procedures Procedure Name Priority Date/Time Associated Diagnosis Comments CARDIOLOGY DOCUMENT SCAN 05/28/2017 documented in this encounter Results * SCAN - CARDIOLOGY (05/28/2017) Anatomical Region Laterality Modality Other us Provider [...] COVID: Suspected 06/09/2024 06/09/2024 06/09/2024 2:18 PM PRODUCT DEVELOPMENT SPECIALIST documented as of this encounter Care Teams Health Education Assistant Relationship Specialty Start Date End Date Melania Gavin MD PCP - General Internal Medicine 12/13/20 Naya Monson MA [address] [place] [address] [address] [place] [phone] ACO Care Manager Of Purchasing 11/18/22 11/19/22 documented as of this encounter
--- OUTSIDE RECORDS SUMMARY | 2024-11-16 17:59 | XMS_ITS | Encounter Summary ---
Author Organization [facility] Address [address] [place] [address] Phone Care Team Providers Care Civil Designer Name Role Phone Melania Gavin MD Primary Care Provider Naya Monson MA Unavailable [phone] Encounter Details Date Type Department Care Team (Latest Contact Info) Description 12/07/2018 Orders Only [facility] Scanning, Provider Social History Tobacco Use Types Packs/Day Years Used Date Smoking Tobacco: Never Smokeless Tobacco: Never Alcohol Use Standard Drinks/Week Comments Yes 0 (1 standard drink = 0.6 oz pure alcohol) 1-2 drinks on special occasions. 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 [address] [place] [address] ACO Care Care Mgr 11/18/22 11/19/22 documented as of this encounter
--- OUTSIDE RECORDS SUMMARY | 2024-11-16 17:59 | XMS_ITS | Encounter Summary ---
Author Organization [facility] Healthcare Address [address] [place] [address] Care Team Providers Care Head Turning Machine Operator Name Role Phone Melania Gavin MD Primary Care Provider Encounter Details Date Type Department Care Team (Late st Contact Info) Description 11/15/2024 4:00 PM CDT Lab [facility] [address] [place] [phone] Thrombocytopenia (HCC); Routine general medical examination at a health care facility; Need for hepatitis B screening test Social History Tobacco Use Types Packs/Day Years [...] on file 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 Gender Identity Male 12/03/2019 11:44 PM CDT [...] 11/15/2024 2:5 6 PM CDT Thrombocytopenia (HCC) CBC WITH AUTO DIFFERENTIAL Routine 11/15/2024 2:56 PM CDT Thrombocytopenia (HCC) HEPATITIS B CORE ANTIBODY, TOTAL Routine 11/15/2024 2:56 PM CDT Need for hepatitis B screening test HEPATITIS B SURFACE ANTIBODY (IMMUNE STATUS) Routine 11/15/2024 2:56 PM CDT Need for hepatitis B screening test HEPATITIS B SURFACE ANTIGEN Routine 11/15/2024 2:56 PM CDT Need for hepatitis B screening test LIPID PANEL Routine 11/15/2024 2:56 PM CDT Routine general medical examination at a health care facility COMPREHENSIVE METABOLIC PANEL Routine 11/15/2024 2:56 PM CDT Routine general medical examination at a [facility] facility documented in this encounter Results * eGFR (11/15/2024 2:56 PM CDT) [...] Final Result [facility] Department [place] [address] * Differential, auto (11/15/2024 2:56 PM CDT) Pathologist [facility] Neutrophil abs 3.82 1.50 - 6.50 K/cumm Imm gran abs 0.01 0.00 - 0.10 K/cumm [facility] Lymphocyte abs 0.85 0.80 - 3.30 K/cumm [facility] Monocyte abs 0.56 0.20 - 0.80 K/cumm [facility] Eosinophil abs 0.17 0.00 - 0.50 K/cumm [facility] Basophil abs 0.03 0.00 - 0.10 K/cumm [...] Sun MD LAB BLOOD ORDERABLES Final Result [facility] Department of Laboratories [place], [place] [id number] * Hepatitis B Surface Antigen Blood (11/15/2024 2:56 PM CDT) HepBsAg Nonreactive Nonreactive Blood 11/15/2024 2:56 PM CDT 11/15/2024 3:11 PM CDT Melania Gavin MD LAB [facility] - GENERAL ORDERABLES Final Result Performing Organization Address City[facility] Co de Phone Number [facility] [place] [address] * Hepatitis B surface antibody (immune status) Blood (11/15/2024 2:56 PM CDT) HBsAb (immune status) Nonreactive Comment:This result is consi stent with a lack of immunity to Hepatitis B Virus when used in the setting of routine screening. Current interpretative data was last revised on 21 Blood 11/15/2024 2:56 PM CDT 11/15/2024 3:11 PM CDT us Melania Gavin MD LAB M [facility] - GENERAL ORDERABLES Final Result Performing Organization Address [facility] Co de Phone Number [facility] [place] [address] * Hepatitis B core antibody, total Blood (11/15/2024 2:56 PM CDT) Hep B core IgG/IgM Nonreactive Nonreactive Blood 11/15/2024 2:56 PM CDT 11/15/2024 3:11 PM CDT us Melania Gavin MD LAB M [facility] GENERAL ORDERABLES Final Result Performing Organization Address [facility] Co de Phone Number [facility] [place] [address] * Lipid panel (11/15/2024 2:56 PM CDT) Cholesterol 149 30 - 199 mg/dL Comment: [...] revised on 2017. Triglycerides 91 <=149 mg/dL [facility] Comment: Interpretive Data Ages < or [...] revised on 2017. HDL 64 >=40 mg/dL [facility] Comment: Interpretive Data Ages < or [...] on 2017. LDL, calculated 68 <=129 mg/dL [facility] Comment: Interpretive Data Ages < or [...] Final Result [facility] [place] [address] * Comprehensive metabolic panel (11/15/2024 2:56 PM [...] classification and Diagnosis of Diabetes Diabetes Care 2021; 46: S19-S40. Current interpretive data was last [...] Final Result [facility] [place] [address] * (ABNORMAL) CBC with auto differential (11/15/2024 2:56 PM CDT) [facility] WBC 5.44 3.80 - 9.90 K/cumm Hgb [...] Final Result [facility] [place] [address] documented in this encounter Visit Diagnoses Diagnosis Thrombocytopenia (HCC) Unspecified thrombocytopenia Routine general medical examination at a health care facility Need for hepatitis B screening test documented in this encounter Care Teams Head Turning Machine Operator Relationship Specialty Start Date End Date Melania Gavin MD PCP - General Internal Medicine 12/13/20 documented as of this encounter
--- OUTSIDE RECORDS SUMMARY | 2024-11-16 17:59 | XMS_ITS | Encounter Summary ---
Author Organization [facility] Healthcare Address [address] [place] [address] Care Team Providers Care Pension Adviser Name Role Phone Melania Gavin MD Primary Care Provider Reason for Visit * Reason Onset Date Comments Scheduling Appointments 11/10/2024 Encounter Details Date Type Department Care Team (Late st Contact Info) Description 11/10/2024 Telephone [facility] [place] [facility] [address] [facility] [address] [place] [address] Toshia Sun MD [address] [facility] [id number] [place] [address] Scheduling Appointments Social History Tobacco Use Types Packs/Day Years [...] on file Legal Sex Male 12:11 AM 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
--- OUTSIDE RECORDS SUMMARY | 2024-11-16 17:59 | XMS_ITS | Encounter Summary ---
Author Organization [facility] Address [address] [place] [address] Phone Care Team Providers Care Irrigation Foreman Name Role Phone Melania Gavin MD Primary Care Provider Naya Monson MA Unavailable [phone] Encounter Details Date Type Department Care Team (Latest Contact Info) Description 06/24/2017 Orders Only [facility] Scanning, Provider Social History Tobacco Use Types Packs/Day Years Used Date Smoking Tobacco: Never Sex and Gender Information Value Date Recorded Sex Assigned at Not on file Legal Sex Male 12:11 AM AUDIT PRACTICE INTERN Gender Identity Male 12/03/2019 11:44 PM CDT Sexual Orientation Not on file documented as of this encounter Plan of Treatment Not on file documented as of this encounter Procedures Procedure Name Priority Date/Time Associated Diagnosis Comments CARDIOLOGY DOCUMENT SCAN 06/24/2017 documented in this encounter Results * SCAN - CARDIOLOGY (06/24/2017) Anatomical Region Laterality Modality Other us Provider [...] COVID: Suspected 06/09/2024 06/09/2024 06/09/2024 2:18 PM AUDIT PRACTICE INTERN documented as of this encounter Care Teams Irrigation Foreman Relationship Specialty Start Date End Date Melania Gavin MD PCP - General Internal Medicine 12/13/20 Naya Monson MA [address] [place] [id number] ACO Care Crochet Machine Operator 11/18/22 11/19/22 documented as of this encounter
--- OUTSIDE RECORDS SUMMARY | 2024-11-16 17:59 | XMS_ITS | Encounter Summary ---
Author Organization [facility] Address [address] [place] [address] Phone Care Team Providers Care Customer Success Director Name Role Phone Melania Gavin MD Primary Care Provider Naya Monson MA Unavailable [phone] Encounter Details Date Type Department Care Team (Latest Contact Info) Description 09/07/2017 Orders Only [facility] Scanning, Provider Social History Tobacco Use Types Packs/Day Years Used Date Smoking Tobacco: Never Sex and Gender Information Value Date Recorded Sex Assigned at Not on file Legal Sex Male 12:11 AM PRINCIPAL LIBRARIAN Gender Identity Male 12/03/2019 11:44 PM CDT Sexual Orientation Not on file documented as of this encounter Plan of Treatment Not on file documented as of this encounter Procedures Procedure Name Priority Date/Time Associated Diagnosis Comments CARDIOLOGY DOCUMENT SCAN 09/07/2017 documented in this encounter Results * SCAN - CARDIOLOGY (09/07/2017) Anatomical Region Laterality Modality Other us Provider [...] COVID: Suspected 06/09/2024 06/09/2024 06/09/2024 2:18 PM PRINCIPAL LIBRARIAN documented as of this encounter Care Teams Customer Success Director Relationship Specialty Start Date End Date Melania Gavin MD PCP - General Internal Medicine 12/13/20 Naya Monson MA [address] [place] [address] [address] [place] [id number] ACO Care Past Due Accounts Clerk 11/18/22 11/19/22 documented as of this encounter
--- OUTSIDE RECORDS SUMMARY | 2024-11-16 17:59 | XMS_ITS | Clinical Summary ---
Author Organization [facility] Address [address] [place] [address] Care Team Providers Care Test Department Helper Name Role Phone Unavailable Primary Care Provider Unavailabl e Social History Tobacco Use Types Packs/Day Years Used Date Smoking Tobacco: Never Assessed Sex and Gender Information Value Date Recorded Sex Assigned at Not on file Legal Sex Male 7:06 PM CDT Gender Identity Not on file Sexual Orientation Not on file Plan of Treatment Health Maintenance Due Date Last Done Comments Colorectal Cancer Screening Colonoscopy (10 Years) 1960 Hepatitis C 10/22/1977 DTaP, Tdap and Td Vaccines ( 1 - Tdap) 10/22/1978 Pneumococcal Vaccine: 50+ Ye ars (1 of 1 - PCV) 10/22/2009 Zoster Vaccines (1 of 2) 10/22/2009 COVID-19 Vaccine ( - 2023-2 5 season) 2023 RSV Immunization or 60+ Years (1 - 1-dose 75+ series) 10/22/2034 Meningococcal B Vaccine Aged Out No l onger eligible based on patient's age to complete this topic Meningococcal Vaccine Aged Out No tova matt eligible based on patient's age to complete this topic RSV Immunizations Under 20 Months Aged Out No longer eligible based on patient's age to complete this topic Insurance
--- OUTSIDE RECORDS SUMMARY | 2024-11-16 17:59 | XMS_ITS | Encounter Summary ---
Author Organization [facility] Healthcare Address [address] [place] [address] Care Team Providers Care Supervisor Jewelry Department Name Role Phone Melania Gavin MD Primary Care Provider Reason for Visit * Reason Comments Follow-up Chronic diseases Encounter Details Date Type Department Care Team (Latest Contact Info) Description 10/31/2024 1:45 PM CDT Office Visit [facility] Primary Care [address] [place] [phone] Melania Gavin MD [address] [place] [phone] Thrombocytopenia (HCC) (Primary Dx); Recurrent major depressive [...] on file Legal Sex Male 12:11 AM [employer] Gender Identity Male 12/03/2019 11:44 PM CDT Sexual Orientation Not on file Occupation Industry Job Start Date Job End Date disabled Not on file Not on file Not on file documented as of this encounter Last Filed Vital Signs Vital Sign Reading Time Taken Comments Blood Pressure 114/74 10/31/2024 1:43 PM CDT Pulse 56 10/31/2024 1:43 PM CDT Temperature 36.8 C (98.3 F) 10/31/2024 1:43 PM CDT Respiratory Rate - - Oxygen Saturation 98% 10/31/2024 1:43 PM CDT Inhaled Oxygen Concentration - - Weight 93.4 kg (206 lb) 10/31/2024 1:43 PM CDT Height 180.3 cm (5' 11) 10/31/2024 1:43 PM CDT Body Mass Index 28.73 10/31/2024 1:43 PM CDT documented in this encounter Patient Instructions * Patient Instructions* Melania Gavin MD - 10/31/2024 1:45 PM CDT Diagnoses and all orders for this visit: Thrombocytopenia (HCC) (Primary) Comments: stable currently; managed per oncology Recurrent major depressive disorder, in partial remission Comments: Stable on duloxetine Chronic bilateral low back pain with bilateral sciatica Comments: Looking into lidocaine injections at [facility]; Seeing pain management Chronic right shoulder pain Comments: I recommend going back and seeing Dr. Carvajal, possibly another injection with PT Routine general medical examination at a health care facility - CBC with auto differential; Future - Comprehensive metabolic panel; Future - Lipid panel; Future Need for hepatitis B screening test - Hepatitis B core antibody, total Blood; Future - Hepatitis B surface antibody (immune status) Blood; Future - Hepatitis B Surface Antigen Blood; Future documented in this encounter Progress Notes * Melania Gavin MD - 10/31/2024 1:45 PM CDT Images from the original note were not included. Patient ID: Eusebio Rubio Jr. is a 64 y.o. male. Chief Complaint. Chief Complaint Patient presents with Follow-up Chronic diseases HPI. Patient is a 64 y.o. male Back Pain This is a chronic problem. The current episode started more than 1 year ago. The problem occurs constantly. The problem has been gradually worsening since onset. The pain is present in the gluteal, lumbar spine and sacro-iliac. The quality of the pain is described as aching, burning and cramping. The pain radiates to the left foot, left knee, left thigh, right foot, right knee and right thigh. The pain is at a severity of 8/10. The pain is Worse during the day. The symptoms are aggravated by bending, position, sitting, standing, stress and twisting. Stiffness is present All day. Associated symptoms include abdominal pain, bladder incontinence, leg pain, numbness, paresis, paresthesias, pelvic pain, tingling and weakness. Risk factors include history of osteoporosis, lack of exercise, recent trauma and sedentary lifestyle. Patient is a 64-year-old male has no history of palpitations, sleep apnea, hyperlipidemia, tremor, BPH, back pain he is here for 6 month follow-up appointment. History of Present Illness Eusebio Rubio Jr. is a 64 year old male with chronic shoulder and back pain who presents with persistent pain despite prior treatments. He experiences persistent shoulder pain, which primarily affects his ability to sleep on his right side and perform activities such as taking off his shirt. The pain is described as similar to 'frozen shoulder.' He previously received a steroid injection, which provided temporary relief for about three to four days, but the pain returned. Physical therapy was attempted but worsened his symptoms. Chronic back pain is associated with nerve damage, leading to numbness in his left leg, particularly when sitting for extended periods, such as on the toilet. This numbness affects his ability to stand and walk. He has not had a steroid injection for his back in two years due to concerns about osteoporosis. He has a history of osteoporosis and is currently taking alendronate (Fosamax). A bone density testin April 2022 did not show significant improvement. Frequent nighttime urination disrupts his sleep. He is hesitant to undergo a urodynamics test due to a previous negative experience with a similar procedure. Pelvic floor exercises have been recommended but not pursued due to personal circumstances. He has a history of sleep apnea and uses a CPAP machine, although he sometimes falls asleep before putting it on. Episodes of supraventricular tachycardia occur up to six times a day, causing concerndue to his family history of cardiac issues. No recent fever or new symptoms. Was having more RLS and was taking an extra ropinirol and gabapentin; seeing movement disorder clinic. Hematology possibly linking gabapentin; did discuss lyrica. (Was not covered in 2022) Osteopenia on the Dexa scan. Will repeat in 2 yrs. 05/01/22 f/u in 2 yrs, taking Vit 4000 international units vit D3 daily. Currently. - doing exercises for lower body strength. - family hx of osteoporosis (no smoking or etoh) - has taken PPI for 20 + yrs. Hiatal Hernia: taking otc medication for gerd currently Mild mylodysplastic syndrome followed yearly per hematology; - seeing him in [place]; Palpitations: seeing Dr. Shafer; holter with low burdon atrial/ventricular ectopy. On metoprolol. 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 Seeing GI and has had multiple scopes. - strong family hx of CAD. - started on asa - does have hiatal hernia - cut back on soda - changed simvastatin to atorvastatin PASTORA: on CPAP pulmonology in [place]. feels having more events more recently in the last month. Told could be back or uncontrolled periodic limb movement. - Thought that gabapentin was helping the RLS. has ropinerol and gabapentin. - discussed getting pacer placed due to issues tolerating the machine. - seeing pulm and started on inhaler has not started yet. HLD: on simvastatin Tremor: seeing neurology treated for tremor and RLS. Mother with Parkinson's. Treating with ropinirole seeing Dr. Del Rosario BPH/LUTS: seeing urology, started on flomax (Did talk about green light/urolift) getting PSA yearly. Dr. So. switching to Dr. Morrison Back Pain: s/p surgery 1991; had head injury and injury to the neck; seeing Dr. Perdomo and not bad enough for surgery, arms numbness and tingling since that time. October 01, 2017 worsening back pain, had MRI and had some issues with getting MRI and since then leg and feet feeling , Seeing neurology at [facility] and had EMG and nerve issues in the left leg. Seeing Dr. Sun pain management - taking baclofen; - on gabapentin 300 mg tid. Wanted to increase the dosage but was seeing hematology for pancytopenia. Was worried about the gabapentin (possibly switch to lyrica) - does take ibuprofen. - CYMBALTA added and felt this improved pain and mood. - last injection did not help as much. Seeing hematology for thrombocytopenia and has been stable. - maybe due to gabapentin and monitoring labs. Dr. Del Rosario: neuro Dr. So Urology switching to Dr. Tamiko Sun pain management. Dr. Lion Hematology [facility] Dr. Velasquez and Dr. Gerardo Kumar (Colorectal and did last colonoscopy) GI. crevincent Perez with cardiology Colon: 01/2018 colonoscopy on omeprazole; Hx of polyps, and internal hemorrhoids; Apr or June 2022f/u 5 yrs PSA: checking with urology Osteoporosis: 05/01/22 osteoporosis. And repeat 04/2024 stable Vax; just got the 4th shot 07/27/21 - never had chicken pox. Current Medications: Outpatient Encounter Medications as of 10/31/2024 Medication Sig Dispense Refill albuterol HFA (PROVENTIL HFA,VENTOLIN HFA,PROAIR HFA) 90 mcg/actuation inhaler as needed alendronate (FOSAMAX) 70 mg tablet Take 1 tablet (70 mg total) by mouth every 7 days Take in the morning with a full glass of water, on an empty stomach, and do not take anything else by mouth or liedown for the next 30 min. 12 tablet 3 aspirin 81 mg enteric coated tablet Take 1 tablet by mouth once daily 90 tablet 1 atorvastatin (LIPITOR) 40 mg tablet Take 1 tablet by mouth once daily 90 tablet 1 baclofen (LIORESAL) 10 mg tablet Take 1 tablet (10 mg total) by mouth 3 (three) times a day 270 tablet 3 biotin 1 mg tablet Take 2.5 tablets (2,500 mcg total) by mouth daily calcium citrate 250 mg calcium tablet tablet Take 3 tablets (750 mg total) by mouth 2 (two) times aday 750 mg 2 times a day cholecalciferol (VITAMIN D-3) 5,000 unit tablet Take by mouth 3,000 units a day cyanocobalamin (Vitamin B-12) 1,000 mcg sublingual tablet Take 1 tablet (1,000 mcg total) by mouth daily 3,000 mg a day docusate sodium (COLACE) 100 mg capsule Take 3 capsules (300 mg total) by mouth daily DULoxetine DR (CYMBALTA) 30 mg capsule Take 1 capsule (30 mg total) by mouth 2 (two) times a day 200 capsule 1 famotidine (PEPCID) 20 mg tablet Take 1 tablet (20 mg total) by mouth daily 30 tablet 11 fluticasone propionate (FLONASE) 50 mcg/actuation nasal spray USE 1 SPRAY(S) IN EACH NOSTRIL TWICE DAILY gabapentin (NEURONTIN) 300 mg capsule Take 1 capsule (300 mg total) by mouth 4 (four) times a day 120 capsule 11 jnimdlyecqc-Q2-Qstdatwca serr 1,500-400-100 mg-unit-mg tablet Take 1 tablet by mouth 2 (two) times a day. ibuprofen (ADVIL,MOTRIN) 400 mg tablet Take 1 tablet (400 mg total) by mouth every 6 (six) hours asneeded for pain 360 tablet 3 magnesium oxide 500 mg capsule Take by mouth daily metoprolol XL (TOPROL-XL) 100 mg 24 hr tablet Take 1 tablet (100 mg total) by mouth daily 100 tablet 1 montelukast (SINGULAIR) 10 mg tablet Take 1 tablet (10 mg total) by mouth nightly at bedtime. multivit with minerals/lutein (MULTIVITAMIN 50 PLUS ORAL) Take 1 capsule by mouth. potassium gluconate 550 mg (90 mg) tablet 1 tablet (550 mg total) rOPINIRole (REQUIP) 0.5 mg tablet TAKE 1 TABLET BY MOUTH TWICE DAILY WITH SUPPER AND AT BEDTIME ANDYOU CAN TAKE AN EXTRA 1 TAB AT NIGHT IF NEEDED 210 tablet 3 simethicone (MYLICON) 80 mg chewable tablet Take 1 tablet (80 mg total) by mouth 4 (four) times a day tadalafiL (CIALIS) 5 mg tablet Take 1 tablet (5 mg total) by mouth daily 30 tablet 11 tamsulosin (FLOMAX) 0.4 mg extended release capsule Take 2 capsules (0.8 mg total) by mouth daily 60 capsule 11 vit B comp no.9-siajr-V-biotin 1-60-300 mg-mg-mcg tablet Take 1 tablet by mouth [DISCONTINUED] mirabegron ER (MYRBETRIQ) 50 mg tablet extended release 24 hr Take 1 tablet (50 mg total) by mouth daily 30 tablet 11 [DISCONTINUED] ondansetron ODT (ZOFRAN-ODT) 4 mg disintegrating tablet Take 1 tablet (4 mg total) by mouth every 8 (eight) hours as needed for nausea or vomiting 20 tablet 0 [DISCONTINUED] vibegron (Gemtesa) 75 mg tablet Take 75 mg by mouth daily 30 tablet 11 No facility-administered encounter medications on file as of 10/31/2024. Review of Systems: Review of Systems Gastrointestinal: Positive for abdominal pain. Genitourinary: Positive for bladder incontinence and pelvic pain. Musculoskeletal: Positive for back pain. Neurological: Positive for tingling, weakness, numbness and paresthesias. BP 114/74 (BP Location: Right arm, Patient Position: Sitting) Pulse 56 Temp 36.8 ??C (98.3 ??F)(Temporal) Ht 180.3 cm (5' 11) Wt 93.4 kg (206 lb) SpO2 98% BMI 28.73 kg/m?? Physical Exam: Physical Exam Constitutional: Appearance: He is well-developed. HENT: Head: Normocephalic and atraumatic. Cardiovascular: Rate and Rhythm: Normal rate and regular rhythm. Heart sounds: Normal heart sounds. No murmur heard. No friction rub. No gallop. Pulmonary: Effort: Pulmonary effort is normal. No respiratory distress. Breath sounds: Normal breath sounds. No wheezing or rales. Skin: General: Skin is warm and dry. Psychiatric: Behavior: Behavior normal. Thought Content: Thought content normal. Judgment: Judgment normal. Physical Exam CHEST: Lungs clear to auscultation bilaterally. Results RADIOLOGY Shoulder CT: No rotator cuff tear, no labral tear, moderate osteoarthritis Assessment & Plan Shoulder Pain Chronic shoulder pain with limited range of motion due to moderate arthritis. Previous steroid injection provided temporary relief. Physical therapy worsened symptoms. No rotator cuff or labral tear on imaging. - Refer to Dr. Carvajal for further evaluation and management of shoulder pain. - Consider repeating steroid injection followed by physical therapy if recommended by Dr. Carvajal. Chronic Back Pain Chronic back pain with radicular symptoms likely due to nerve impingement. Previous steroid injections provided relief, but not used in two years due to osteoporosis concerns. Steroid injections may provide longer-lasting relief than lidocaine. - Refer to pain management for evaluation and possible steroid injection for back pain. Supraventricular Tachycardia (SVT) Intermittent episodes of SVT. Follow-up with rhythm specialist Dr. Shafer is important for management. - Consider follow-up with Dr. Shafer for further evaluation and management of SVT. Benign Prostatic Hyperplasia (BPH) Symptoms of weak urinary stream and nocturia. Urodynamic testing and surgical options like Urolift or TURP discussed. Urolift is less invasive but may not be as long-lasting. - Discuss with urologist about potential surgical options for BPH, including Urolift and TURP. - Consider urodynamic testing if he consents. Osteoporosis Osteoporosis managed with alendronate. Fosamax typically used for five years. - Continue alendronate therapy. - Schedule follow-up bone density scan as per standard protocol. Obstructive Sleep Apnea Uses CPAP but reports difficulty due to frequent nocturia. Compliance with CPAP is variable. General Health Maintenance Routine health maintenance discussed. Blood work stable, cholesterol improved. Scheduled for Medicare wellness visit in March and follow-up in October. - Order fasting blood work prior to next physical exam. - Schedule Medicare wellness visit in March with [facility]. - Schedule follow-up appointment with primary care in October. Assessment & Plan: Diagnoses and all orders for this visit: Thrombocytopenia (HCC) (Primary) Comments: stable currently; managed per oncology Recurrent major depressive disorder, in partial remission Comments: Stable on duloxetine Chronic bilateral low back pain with bilateral sciatica Comments: Looking into lidocaine injections at [facility]; Seeing pain management Chronic right shoulder pain Comments: I recommend going back and seeing Dr. Carvajal, possibly another injection with PT Routine general medical examination at a health care facility - CBC with auto differential; Future - Comprehensive metabolic panel; Future - Lipid panel; Future Need for hepatitis B screening test - Hepatitis B core antibody, total Blood; Future - Hepatitis B surface antibody (immune status) Blood; Future - Hepatitis B Surface Antigen Blood; Future BMI Follow-up includes: exercise counseling. Melania Gavin MD documented in this encounter Miscellaneous Notes * Addendum Note - Candis Salcedo - 10/31/2024 1:45 PM CDTAddended by: CANDIS SALCEDO on: 11/15/2024 02:56 PM Modules accepted: Orders documented in this encounter Plan of Treatment Not on file documented as of this encounter Goals Goal Patient Goal Type Associated Problems Recent Progress Patient-Stated? Author CCM Chronic Pain Care Plan Chronic Care Management No change(06/29 12:44 PM CDT) No Apurva Martinez RN Note: Problem: Chronic Pain Goals: 1. Minimize further functional decline 2. Maximize quality of life 3. Control pain Strategies: - Activity/exercise program recommendation - Conservative stepwise pain medicine strategy with multi-disciplinary approach - Recommend healthy lifestyle strategies and compensatory methods as needed documented as of this encounter Results * Comprehensive metabolic panel (11/15/2024 2:56 PM CDT) Sodium 141 135 - 145 mmol/L Potassium, pl 4.7 3.3 - 4.9 mmol/L [facility] Chloride 108 97 - 110 mmol/L [facility] CO2 28 22 - 32 mmol/L [facility] Anion gap 5 2 - 15 mmol/L [facility] BUN 21 6 - 25 mg/dL [facility] Creatinine 0.94 0.80 - 1.30 mg/dL [facility] Glucose 92 70 - 199 mg/dL [facility] Comment: Interpretive Data Fasting glucose >/= 126 [...] 2022. Calcium 9.4 8.5 - 10.3 mg/dL [facility] Bilirubin, total 0.5 0.1 - 1.2 mg/dL [facility] Protein, pl 6.6 6.5 - 8.5 g/dL [facility] Albumin 4.4 3.5 - 5.0 g/dL [facility] Alk phos 63 40 - 130 Units/L [facility] ALT 33 7 - 55 Units/L [facility] AST 35 10 - 50 Units/L [facility] Blood 11/15/2024 2:56 PM CDT 11/15/2024 3:11 PM CDT Melania Gavin MD LAB BLOOD ORD ERABLES Final Result [facility] [place] [address] * Lipid panel (11/15/2024 2:56 PM CDT) [...] revised on 2017. Triglycerides 91 <=149 mg/dL [facility] Comment: Interpretive Data Ages < or = [...] revised on 2017. HDL 64 >=40 mg/dL [facility] Comment: Interpretive Data Ages < or [...] on 2017. LDL, calculated 68 <=129 mg/dL [facility] Comment: Interpretive Data Ages < or = 19 years Acceptable: <110 mg/dL Borderline high: 110-129 mg/dL High: >or= 130 mg/dL Ages > or = 20 years Optimal: <100 mg/dL Near optimal: 100-129 mg/dL Borderline high: 130-159 mg/dL High: >160 mg/dL Calculated using the [place] LDL-C estimating equation. This equation was implemented on 2023. Prior to this date LDL-C was estimated using the Friedewald equation. Literature References: 1. Expert Panel on Integrated Guidelines for Cardiovascular Health and Risk Reduction in Children and Adolescents. Pediatrics 2011;128:S213 2. NCEP Expert Panel. Circulation 2004;110:227 3. Destin Asher et al. JONATHAN Cardiol. 2020 August 17;5(5):540-548. doi: 10.1001/jamacardio.2020.0013 Current Interpretive Data was last revised on 2023. Non-HDL Cholesterol 85 mg/dL [facility] Comment: Interpretive Data Ages < or = [...] last revised on 2017. Chol/HDL ratio 2 [facility] Blood 11/15/2024 2:56 PM CDT 11/15/2024 3:11 PM CDT us Melania Gavin MD LAB BLOOD ORD ERABLES Final Result [facility] [place] [address] * Hepatitis B core antibody, total Blood (11/15/2024 2:56 PM CDT) Hep B core IgG/IgM Nonreactive Nonreactive Blood 11/15/2024 2:56 PM CDT 11/15/2024 3:11 PM CDT us Melania Gavin MD LAB M ICROBIOLOGY - GENERAL ORDERABLES Final Result Performing Organization Address City/[facility] Co de Phone Number [facility] Department [place] [address] * Hepatitis B surface antibody (immune status) Blood (11/15/2024 2:56 PM CDT) HBsAb (immune status) Nonreactive Comment:This result is consi stent with a lack of immunity to Hepatitis B Virus when used in the setting of routine screening. Current interpretative data was last revised on 21 Blood 11/15/2024 2:56 PM CDT 11/15/2024 3:11 PM CDT us Melania Gavin MD LAB M ICROBIOLOGY - GENERAL ORDERABLES Final Result Performing Organization Address City/[facility]/ZIP Co de Phone Number [facility] JACINTO [facility] [place] [address] * Hepatitis B Surface Antigen Blood (11/15/2024 2:56 PM CDT) HepBsAg Nonreactive Nonreactive Blood 11/15/2024 2:56 PM CDT 11/15/2024 3:11 PM CDT us Melania Gavin MD LAB M ICROBIOLOGY - GENERAL ORDERABLES Final Result Performing Organization Address [facility] Co de Phone Number ALBIN Celis [facility] [place] [address] documented in this encounter Visit Diagnoses Diagnosis Thrombocytopenia (HCC)- Primary Unspecified thrombocytopenia Recurrent major depressive disorder, in partial remission Chronic bilateral low back pain with bilateral sciatica Chronic right shoulder pain Pain in joint, shoulder region Routine general medical examination at a health care facility Need for hepatitis B screening test documented in this encounter Discontinued Medications Medication Sig Discontinue Reason Start Date End Da te mirabegron ER (MYRBETRIQ) 50 mg tablet extended release 24 hr Take 1 tablet (50 mg total) by mouth daily Therapy completed 09/28/2024 10/31/2024 ondansetron ODT (ZOFRAN-ODT) 4 mg disintegrating tablet Take 1 tablet (4 mg total) by mouth every 8 (eight) hours as needed for nausea or vomiting Therapy completed 06/09/2024 10/31/2024 vibegron (Gemtesa) 75 mg tablet Take 75 mg by mouth daily Therapy completed 10/06/2024 10/31/2024 documented as of this encounter Care Teams Supervisor Jewelry Department Relationship Specialty Start Date End Date Melania Gavin MD PCP - General Internal Medicine 12/13/20 documented as of this encounter
--- OUTSIDE RECORDS SUMMARY | 2024-11-16 18:00 | XMS_ITS | Referral Summary ---
Author Organization 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 Name Role Phone Melania Gavin MD Primary Care Provider Encounters Date Type Department Care Team Description 11/15/2024 Results Follow-Up [facility] Primary Care [address] [place] [phone] Melania Gavin MD Comprehensive metabolic panel, Lipid panel, Hepatitis B core antibody, total Blood, Additional followed-up results: 3 11/15/2024 4:00 PM CDT Lab [facility] [address] [place] [phone] Thrombocytopenia (HCC); Routine general medical examination at a health care facility; Need for hepatitis B screening test 11/13/2024 Orders Only [facility] [address] [place] [address] Advanced Medicine [address] [place] [phone] Toshia Sun MD Thrombocytopenia (HCC) (Primary Dx); Postlaminectomy syndrome; Chronic bilateral low back pain with bilateral sciatica; Intervertebral disc disorder with radiculopathy of lumbar region 11/10/2024 Telephone [facility] [address] [place] [address] Advanced Medicine [address] [place] [address] Toshia Sun MD Scheduling Appointments 11/09/2024 12:00 PM CDT Office Visit [facility] Movement Disorders [address] [facility] 7th [place] [address] Ruben Fang MD PhD Restless leg syndrome (Primary Dx) 10/31/2024 1:45 PM CDT Office Visit [facility] Primary Care [address] [facility] [address] [place] [phone] Melania Gavin MD Thrombocytopenia (HCC) (Primary Dx); Recurrent major depressive disorder, in partial remission; Chronic bilateral low back pain with bilateral sciatica; Chronic right shoulder pain; Routine general medical examination at a health care facility; Need for hepatitis B screening test 10/18/2024 Telephone [facility] Surgery [address] [place] [address] [address] [place] [phone] Devika Luna RMA 10/14/2024 11:25 AM CDT Lab [facility] Lab [address] [place] [address] BPH with obstruction/lower urinary tract symptoms 10/11/2024 Telephone [facility] Surgery [facility] [place] [address] Melva Friedman 10/11/2024 Orders Only [facility] Surgery [address] [place] [address] [address] [place] [phone] Ruben Morrison MD BPH with obstruction/lower urinary tract symptoms (Primary Dx) 10/11/2024 Telephone [facility] Surgery [address] [place] [address] Carlie Franklin CMA 10/06/2024 Orders Only [facility] Surgery [address] [place] [address] [address] [place] [phone] Ruben Morrison MD 10/06/2024 Telephone [facility] Surgery [address] [place] [address] Amadeo Washington 10/05/2024 1:30 PM CDT Office Visit [facility] Cardiology [address] [facility] [address] [place] [phone] Ta Nolen MD PVC (premature ventricular contraction) (Primary Dx); Hyperlipidemia, unspecified hyperlipidemia type 09/28/2024 4:00 PM CDT Telemedicine [facility] Surgery [address] [place] [address] [address] [place] [phone] Ruben Morrison MD BPH with obstruction/lower urinary tract symptoms (Primary Dx) 09/22/2024 Telephone [facility] Surgery [address] [place] [phone] Luna Devika KHADAREwa 09/19/2024 3:15 PM CDT - 09/19/2024 11:59 PM CDT Hospital Encounter [facility] [place] [address] [place] [address] BPH with obstruction/lower urinary tract symptoms Discharge Disposition: Discharge to home or self care 09/18/2024 Documentation [facility] OP Physical Therapy [address] [place] [address] Kimberly Millan, PT 09/08/2024 12:49 PM CDT - 09/08/2024 11:59 PM CDT Hospital Encounter [facility] Diagnostic Imaging [address] [place] [address] Chronic right shoulder pain Discharge Disposition: Discharge to home or self care 08/31/2024 11:15 AM CDT Office Visit [facility] Orthopedics and Sports Medicine [facility] [address] [place] [address] Donnie Carvajal MD Chronic right shoulder pain (Primary Dx) 08/31/2024 1:20 PM CDT Office Visit [facility] Surgery [address] [place] [phone] Ruben Morrison MD Elevated PSA (Primary Dx); Enlarged prostate; BPH with obstruction/lower urinary tract symptoms; Pelvic floor dysfunction 08/30/2024 3:55 PM CDT Lab [facility] Advanced [facility] Advanced Medicine ([facility]) [address] [place] [phone] Elevated PSA 08/30/2024 Telephone [facility] Surgery [facility] [facility] [address] [place] [phone] Devika Luna RMA from Last 3 Months Allergies No known active allergies Medications cholecalciferol (VITAMIN D-3) 5,000 unit tablet Take by mouth 3,000 units a day Active docusate sodium (COLACE) 100 mg capsuleIndications :constipation Take 3 capsules (300 mg total) by mouth daily Active multivit with minerals/lutein (MULTIVITAMIN 50 PLUS ORAL) Take 1 capsule by mouth. Active vit B comp no.3-rtvqc-N-bioti n 1-60-300 mg-mg-mcg tabletIndications: Vitamin Deficiency Prevention Take 1 tablet by mouth Active potassium gluconate 550 mg (90 mg) tablet 1 tablet (550 mg total) Active biotin 1 mg tablet Take 2.5 tablets (2,500 mcg total) by mouth daily Active mubtqafnunj-N0-Srk wellia serr 1,500-400-100 mg-unit-mg tablet Take 1 [...] mg total) by mouth daily 60 capsule 4 Active alendronate (FOSAMAX) 70 mg tabletIndications: [...] mg total) by mouth daily 30 tablet 5 Active metoprolol XL (TOPROL-XL) 100 mg 24 hr tablet Take 1 tablet (100 mg total) by mouth daily 100 tablet 1 5 Active gabapentin (NEURONTIN) 300 mg capsule Take 1 capsule (300 mg total) by mouth 4 (four) times a day 120 capsule 5 Active baclofen (LIORESAL) 10 mg tablet Take 1 tablet (10 mg total) by mouth 3 (three) times a day 270 tablet 5 Active ibuprofen (ADVIL,MOTRIN) 400 mg tablet Take 1 tablet (400 mg total) by mouth every 6 (six) hours as needed for pain 360 tablet [address] (CYMBALTA) 30 mg capsule Take 1 capsule (30 mg total) by mouth 2 (two) times a day 200 capsule 5 Active aspirin 81 mg enteric coated tablet Take 1 tablet by mouth once daily 90 tablet 5 Active atorvastatin (LIPITOR) 40 mg tablet Take 1 tablet by mouth once daily 90 tablet 5 Active ondansetron ODT (ZOFRAN-ODT) 4 mg disintegrating tablet Take 1 tablet (4 mg total) by mouth every 8 (eight) hours as needed for nausea or vomiting 20 tablet 5 025 Discontin ued(Thera py completed ) mirabegron ER (MYRBETRIQ) 50 mg tablet extended release 24 hr Take 1 tablet (50 mg total) by mouth daily 30 tablet 5 025 Discontin ued(Thera py completed ) vibegron (Gemtesa) 75 mg tablet Take 75 mg by mouth daily 30 tablet 025 Discontin ued(Thera py completed ) Active Problems Patient Care Coordination No te Formatting of this note migh t be different from the original. Dr. Vides is at location [address] [place] [address]. and . Problem Noted Date Diagnosed Date [...] HADS. No evidence of daytime drowsiness on [place] scale. Moderate evidence of REM Behavior Disorder [...] asleep (currently 60-90 minutes). This encounter's total jper-dz-turo time was 60 minutes. I spent more [...] disorder. 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 Assessment & Plan (03/07/2022 4:27 PM LEVERS LACE MACHINE OPERATOR): ASSESSMENT He has had RLS since 2018 [...] ropirole. Assessment & Plan (04/04/2021 6:09 PM LEVERS LACE MACHINE OPERATOR): ASSESSMENT - 60 y.o. man with RLS [...] minutes to fall asleep. This encounter's total fxco-nt-dnqs time was greater than 30 minutes. 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 The CKD-EPI equation should not be used for patients with unstable renal function and has not been validated in children and those over 70. Current interpretive data was last reviewed 2021. Blood 11/15/2024 2:56 PM CDT 11/15/2024 3:18 PM CDT us Melania Gavin MD LAB BLOOD ORD ERABLES Final Result ALBIN JACINTO [facility] [place] [address] * Differential, auto (11/15/2024 2:56 PM CDT) Neutrophil abs 3.82 1.50 - 6.50 K/cumm Imm gran abs 0.01 0.00 - 0.10 K/cumm [facility] Lymphocyte abs 0.85 0.80 - 3.30 K/cumm [facility] Monocyte abs 0.56 0.20 - 0.80 K/cumm [facility] Eosinophil abs 0.17 0.00 - 0.50 K/cumm [facility] Basophil abs 0.03 0.00 - 0.10 K/cumm [facility] Neutrophil pct 70.2 % [facility] Comment: Interpretive Data Percent cell count reference ranges are not reported, since discordance with absolute values may lead to misinterpretation of CBC data. Current Interpretive Data was last revised on 2017. Imm gran pct 0.2 % [facility] Comment: Interpretive Data Percent cell count reference ranges are not reported, since discordance with absolute values may lead to misinterpretation of CBC data. Current Interpretive Data was last revised on 2017. Lymphocyte pct 15.6 % [facility] Comment: Interpretive Data Percent cell count reference ranges are not reported, since discordance with absolute values may lead to misinterpretation of CBC data. Current Interpretive Data was last revised on 2017. Monocyte pct 10.3 % [facility] Comment: Interpretive Data Percent cell count reference ranges are not reported, since discordance with absolute values may lead to misinterpretation of CBC data. Current Interpretive Data was last revised on 2017. Eosinophil pct 3.1 % [facility] Comment: Interpretive Data Percent cell count reference ranges are not reported, since discordance with absolute values may lead to misinterpretation of CBC data. Current Interpretive Data was last revised on 2017. Basophil pct 0.6 % [facility] Comment: Interpretive Data Percent cell count reference ranges are not reported, since discordance with absolute values may lead to misinterpretation of CBC data. Current Interpretive Data was last revised on 2017. Blood 11/15/2024 2:56 PM CDT 11/15/2024 3:11 PM CDT us Toshia Sun MD LAB BLOOD ORDERABLES Final Result [facility] Department [place] [address] * (ABNORMAL) CBC with auto differential (11/15/2024 2:56 PM CDT) [facility] WBC 5.44 3.80 - 9.90 K/cumm Hgb 12.8(L) 13.0 - 17.5 g/dL [facility] Hct 37.8(L) 38.9 - 50.3 % [facility] Plt 105(L) 150 - 400 K/cumm [facility] MPV 11.0 9.1 - 12.3 fL [facility] RBC 4.13(L) 4.30 - 5.80 M/cumm [facility] MCV 91.5 81.3 - 96.4 fL [facility] MCH 31.0 27.1 - 33.3 pg [facility] MCHC 33.9 32.3 - 35.7 g/dL [facility] RDW CV 12.8 11.1 - 14.9 % [facility] RDW SD 42.5 35.7 - 48.1 fL [facility] NRBC abs 0.00 0.00 - 0.01 K/cumm [facility] Blood 11/15/2024 2:56 PM CDT 11/15/2024 3:11 PM CDT us Toshia Sun MD LAB BLOOD ORDERABLES Final Result Performing Organization Address City/State/[facility] Co de Phone Number [facility] Department [place] [address] * Hepatitis B core antibody, total Blood (11/15/2024 2:56 PM CDT) [facility] Hep B core IgG/IgM Nonreactive Nonreactive Blood 11/15/2024 2:56 PM CDT 11/15/2024 3:11 PM CDT us Melania Gavin MD LAB M ICROBIOLOGY - GENERAL ORDERABLES Final Result Performing Organization Address City/[facility] Co de Phone Number [facility] [place] [address] * Hepatitis B surface antibody (immune status) Blood (11/15/2024 2:56 PM CDT) HBsAb (immune status) Nonreactive Comment:This result is consi stent with a lack of immunity to Hepatitis B Virus when used in the setting of routine screening. Current interpretative data was last revised on 21 Blood 11/15/2024 2:56 PM CDT 11/15/2024 3:11 PM CDT Melania Gavin MD LAB [facility] GENERAL ORDERABLES Final Result Performing Organization Address [facility] de Phone Number ALBIN [facility] [place] [address] * Hepatitis B Surface Antigen Blood (11/15/2024 2:56 PM CDT) HepBsAg Nonreactive Nonreactive Blood 11/15/2024 2:56 PM CDT 11/15/2024 3:11 PM CDT Melania Gavin MD LAB M [facility] - GENERAL ORDERABLES Final Result Performing Organization Address [facility] Co de Phone Number [facility] [address] [place] [address] * Lipid panel (11/15/2024 2:56 PM CDT) [...] revised on 2017. Triglycerides 91 <=149 mg/dL [facility] Comment: Interpretive Data Ages < [...] revised on 2017. HDL 64 >=40 mg/dL [facility] Comment: Interpretive Data Ages [...] on 2017. LDL, calculated 68 <=129 mg/dL [facility] Comment: Interpretive Data Ages [...] NCEP Expert Panel. Circulation 2004;110:227 3. Destin M et al. JONATHAN Cardiol. 2020 August 17;5(5):540-548. doi: 10.1001/jamacardio.2020.0013 Current Interpretive Data was last revised on 2023. Non-HDL Cholesterol 85 mg/dL [facility] Comment: Interpretive Data Ages < [...] last revised on 2017. Chol/HDL ratio 2 [facility] Blood 11/15/2024 2:56 PM CDT 11/15/2024 3:11 PM CDT Melania Gavin MD LAB BLOOD ORD ERABLES Final Result [facility] [place] [address] * Comprehensive metabolic panel (11/15/2024 2:56 PM CDT) Sodium 141 135 - 145 mmol/L Potassium, pl 4.7 3.3 - 4.9 mmol/L [facility] Chloride 108 97 - 110 mmol/L [facility] CO2 28 22 - 32 mmol/L [facility] Anion gap 5 2 - 15 mmol/L [facility] BUN 21 6 - 25 mg/dL [facility] Creatinine 0.94 0.80 - 1.30 mg/dL [facility] Glucose 92 70 - 199 mg/dL [facility] Comment: Interpretive Data Fasting glucose >/= [...] 2022. Calcium 9.4 8.5 - 10.3 mg/dL [facility] Bilirubin, total 0.5 0.1 - 1.2 mg/dL [facility] Protein, pl 6.6 6.5 - 8.5 g/dL [facility] Albumin 4.4 3.5 - 5.0 g/dL [facility] Alk phos 63 40 - 130 Units/L [facility] ALT 33 7 - 55 Units/L [facility] AST 35 10 - 50 Units/L [facility] Blood 11/15/2024 2:56 PM CDT 11/15/2024 3:11 PM CDT us Melania Gavin MD LAB BLOOD ORD ERABLES Final Result [facility] [place] [address] * Urine culture Urine, bladder (10/14/2024 11:36 AM CDT) Report Final Report: No growth Comment:Testing performed by : [facility], [address] [facility], [place]., [address] Urine, bladder 10/14/2024 11 :36 AM CDT 10/14/2024 7:24 PM CDT Narrative ALBIN Dago 10/15/2024 8:08 PM CDT Testing performed by [facility] Microbiology Laboratory ([phone]) us Ruben Morrison MD LAB MICROBIOLOGY - GENERAL ORDER TYRONE Final Result [facility] [address] [place] [address] * POCT lipid panel (10/05/2024 2:33 PM [...] Doron Paz M.D. LB: ARBEN Report ID: [id number] Reading Location: [id number] Procedure Note Doron Paz MD - 10/06/2024 [...] Doron Paz M.D. LB: ARBEN Report ID: [id number] Reading Location: [place] [address] Ruben Morrison MD [facility] CT PROCEDURES Final Result * POCT creatinine for contrast evaluation (09/19/2024 3:31 PM CDT) Creatinine POC 0.90 0.80 - 1.30 mg/dL Comment:Testing performed by : [facility], [address] [place] [address]., [id number] Blood 09/19/2024 3:31 PM CDT 09/19/2024 3:31 PM CDT us Ruben Morrison MD POINT OF CARE TEST ORDERABLES Fi nal Result ALBIN [facility] [place] [address] * FL Fluoro Guided Injection Shoulder Glenohumeral [...] Willi Ashraf M.D. KR: JULIAN Report ID: [id number] Reading Location: [id number] Procedure Note Willi Ashraf MD - 09/08/2024 [...] Willi Ashraf M.D. KR: JULIAN Report ID: [id number] Reading Location: [id number] Donnie Carvajal MD IMG FLUOROSCOPY PROCEDU RES Final Result * Measure post void residual (08/31/2024 1:16 PM CDT) Venessa Rosado, ON LICENSE OF [facility] - 08/31/2024 1:16 PM CDT Measurement of [...] LAB BLOOD ORDERABLES Final Resul t ALBIN [facility] [place] [address] * COLONOSCOPY (07/08/2022) Scribed Colonoscopy Normal Historical Provider HEALTH MAINTENANCE Final Result from Last 3 Months or Most Recently Relevant to Health Maintenance Insurance [facility] MEDICARE SUPPLEMENT MEDICARE [facility] MEDICARE BLUE CROSS MEDICARE SUPPLEMENT Care Teams 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
--- NOTE | 2024-11-16 18:48 | PC.NURSE ---
patient returned from CT at this time
--- NOTE | 2024-11-16 19:13 | ED_ITS ---
HPI - Head Injury General Chief complaint: Head Injury Stated complaint: HEAD INJURY Time Seen by Provider: 11/16/24 18:22 Source: patient Mode of arrival: ambulatory Limitations: no limitations History of Present Illness HPI Narrative: Patient is a 64 y/o male who presents to the ED with c/o head injury. Patient reports he was loading his mother's electric wheelchair into a [employer] yesterday and hit his head on the metal railing. Denied LOC. He states he was stunned by the injury. Has had a persistent headache since then. Has been feeling slightly lightheaded. Does also report having some neck pain. Denies vision changes, focal numbness or weakness, dizziness. Takes an aspirin 81 mg daily. Is not on any other blood thinners. Patient does have history of chronic back pain, sees pain management. Denies worsening of this. Is on baclofen, gabapentin, ibuprofen daily. Related Data Home Medications ?Medication ?Instructions ?Recorded ?Confirmed ?Last Taken ?Type cholecalciferol (vitamin D3) 125 5,000 unit PO DAILY 07/07/19 09/20/24 Unknown History mcg (5,000 unit) capsule glucosamine HCl 1,500 mg tablet 1,500 mg PO DAILY 07/07/19 09/20/24 Unknown History glucosamine-chondroitin 250 mg-200 2 tablet PO TID 07/07/19 09/20/24 Unknown History mg tablet (Osteo Bi-Flex) potassium gluconate 550 mg (90 mg) 550 mg PO DAILY 07/07/19 09/20/24 Unknown History tablet turmeric 450 mg-turmeric root cap PO 07/07/19 09/20/24 Unknown History extract 50 mg capsule biotin 5,000 mcg disintegrating 10,000 mcg PO DAILY 07/27/19 09/20/24 Unknown History tablet magnesium gluconate 27 mg 27 mg PO DAILY 07/27/19 09/20/24 Unknown History magnesium (500 mg) tablet docusate sodium 100 mg capsule 100 mg PO DAILY 09/20/19 09/20/24 Unknown History (Colace) multivitamin (Multiple Vitamins 1 tablet PO DAILY 09/20/19 09/20/24 Unknown History tablet) simethicone 125 mg capsule (Gas-X 125 mg PO DAILY PRN 09/20/19 09/20/24 Unknown History Extra Strength) gabapentin 300 mg capsule 300 mg PO TID 01/18/20 09/20/24 Unknown History duloxetine 20 mg capsule,delayed 30 mg PO BID 04/10/21 09/20/24 Unknown History release tadalafil 5 mg tablet 5 mg PO DAILY 04/10/21 09/20/24 Unknown History magnesium oxide 500 mg capsule 500 mg PO DAILY 11/25/21 09/20/24 Unknown History triamcinolone acetonide 0.1 % 1 applic topical BID 11/25/21 09/20/24 Unknown History topical cream cyanocobalamin (vitamin B-12) 2,000 mcg PO DAILY 07/15/22 09/20/24 Unknown History 1,000 mcg capsule ibuprofen 400 mg tablet 400 mg PO QID 07/15/22 09/20/24 Unknown History tamsulosin 0.4 mg capsule 0.8 mg PO DAILY 07/15/22 09/20/24 Unknown History alendronate 70 mg tablet 70 mg PO WEEKLY 01/14/23 09/20/24 Unknown History atorvastatin 40 mg tablet 40 mg PO DAILY 01/14/23 09/20/24 Unknown History famotidine 20 mg tablet 20 mg PO DAILY 01/14/23 09/20/24 Unknown History aspirin 81 mg tablet,delayed 81 mg PO DAILY 05/07/23 09/20/24 Unknown History release (Adult Aspirin Regimen) ropinirole 0.5 mg tablet 1 mg PO QHS 03/30/24 09/20/24 Unknown History Allergies Allergy/AdvReac Type Severity Reaction Status Date / Time No Known Allergies Allergy Verified 11/16/24 17:59 Review of Systems Review of Systems: All systems reviewed & are unremarkable except as noted in HPI. All systems reviewed & are unremarkable except as noted in HPI and below PMFSH Past Medical History Medical History Arthritis Anxiety Anemia with low platelet count Anemia Urinary frequency Constipation GERD (gastroesophageal reflux disease) High cholesterol Congestion of nasal sinus Wears glasses Lightheadedness RLS (restless legs syndrome) Atrial fibrillation SOB (shortness of breath) PASTORA (obstructive sleep apnea) Rhinitis BPH loc w/o ur obs/LUTS GERD without esophagitis Dyslipidemia Essential (primary) hypertension Hyperlipemia Chronic back pain spondylosis, spinal fusion 1991 Osteoarthritis Pancytopenia Unspecified asthma Sleep apnea Hypertension Degenerative disc disease Atrial fibrillation SOB (shortness of breath) RLS (restless legs syndrome) Surgical History Surgical History 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 History of rectal sphincterotomy Hemorrhoid History of tonsillectomy S/P lumbar spinal fusion 1991 Family History Family History Father Lung disease Heart disease Acute myocardial infarction Mother Thyroid disease Parkinson disease Sibling Heart failure Sibling Degenerative disc disease Heart disease Mother Family history of thyroid disease Family history of osteoporosis Family history of mental disorder Depression Family history of Parkinson's disease Father Family history of coronary artery disease Hypertension Acute myocardial infarction, Onset Age: 57 Family history of cardiovascular disease, Onset Age: 57 Family history of lung disease, Onset Age: 57 Sibling Family history of cardiovascular disease Other Asthma Diabetes mellitus Family history of malignant neoplasm of male breast Family history of primary malignant neoplasm of liver High cholesterol Neuropathy Social History Social History Smoking status: Never smoker Alcohol intake: current Exam Narrative: GENERAL: Well appearing, well-nourished, non-toxic, in no acute distress. HEAD: Normocephalic, atraumatic. Minimal scalp tenderness. NECK: Minimal tenderness throughout natanael paraspinal musculature. No significant midline spinal tenderness. No palpable bony deformities or step-offs. RESPIRATORY: Airway patent, respirations nonlabored. CARDIOVASCULAR: Regular rate and rhythm MUSCULOSKELETAL: Moves all extremities. No gross deformities. SKIN: Warm, dry, normal color. NEURO: A&O X3. Speech clear. Cranial nerves II-XII grossly intact. Steady gait. No ataxic movements. No focal deficits. PSYCHIATRIC: Appropriate mood and affect. Normal interaction. Course Vital Signs Vital signs: Vital Signs Temperature 98.2 F 11/16/24 17:57 Pulse Rate 64 11/16/24 17:57 Respiratory Rate 16 11/16/24 17:57 Blood Pressure 145/70 H 11/16/24 17:57 Pulse Oximetry 100 11/16/24 17:57 Temperature 98.2 F 11/16/24 17:57 Pulse Rate 64 11/16/24 17:57 Respiratory Rate 16 11/16/24 17:57 Blood Pressure 145/70 H 11/16/24 17:57 Pulse Oximetry 100 11/16/24 17:57 MDM - Head Injury MDM Narrative Medical decision making narrative: Patient presented to ED status post head injury yesterday. Denies LOC. Reports headache and mild lightheadedness today. Also reports slight neck pain. Vital signs are stable upon arrival. Patient in no acute distress. Neurologically intact. No focal deficits. CT brain and cervical spine without acute traumatic findings. Does show cervical strain. Consistent with clinical picture. Discussed possibility of concussion based on symptoms and management of such. Will prescribe short course of Flexeril to use in addition to patient's home medications. Advised close follow-up with PCP, pain management. Given strict return precautions. Patient in agreement plan. Feels comfortable going home. Discharged in stable condition. Medical Records Attestation: I reviewed the patient's medical records. Imaging Data Attestation: I personally reviewed and interpreted this imaging study as follows: Radiologist's impression: ITS Impressions Head CT 11/16/24 18:53 Impression: No acute intracranial hemorrhage or suspicious mass effect. Cervical Spine CT 11/16/24 18:56 Impression: Straightening of the normal curvature of the cervical spine, likely muscular in origin. Significant degenerative disease, without acute fracture. Discharge Plan Discharge Clinical Impression: Closed head injury Qualifiers: Encounter type: initial encounter Qualified Code(s): S09.90XA - Unspecified injury of head, initial encounter Cervical strain Qualifiers: Encounter type: initial encounter Qualified Code(s): S16.1XXA - Strain of muscle, fascia and tendon at neck level, initial encounter Patient Disposition: Home Condition: Stable Instructions: Antibiotic Form, Cervical Strain (ED), Concussion (ED), Head Injury (ED) Additional Instructions: Your imaging here did not show any evidence of traumatic findings. It is possible you may have sustained a small concussion. Recommend plenty of rest, low light/low stimulus environment, limiting screen time. Continue Tylenol and Ibuprofen as needed for pain. You may use ice/heat to area of pain. Take your home muscle relaxers as needed and prescribed. Recommend taking these at night as they may cause sedation. Do not drive, operate heavy machinery, drink alcohol while on muscle relaxers as this may cause further sedation. Follow-up with your primary care doctor for further evaluation. Return to the ED if you experience worsening or severe headaches, recurrent injury, severe dizziness, passing out, numbness or tingling of arms or legs, vision changes, unable to keep down food or drink, or any other symptoms of concern. Patient Language: Japanese Prescriptions: New cyclobenzaprine 5 mg tablet 5 mg PO TID PRN (Reason: muscle spasm) Qty: 5 0RF No Action docusate sodium [Colace] 100 mg capsule 100 mg PO DAILY simethicone [Gas-X Extra Strength] 125 mg capsule 125 mg PO DAILY PRN multivitamin [Multiple Vitamins] Tablet 1 tablet PO DAILY gabapentin 300 mg capsule 300 mg PO TID tamsulosin 0.4 mg capsule 0.8 mg PO DAILY tadalafil 5 mg tablet 5 mg PO DAILY duloxetine 20 mg capsule,delayed release(DR/EC) 30 mg PO BID triamcinolone acetonide 0.1 % cream 1 applic topical BID magnesium oxide 500 mg capsule 500 mg PO DAILY cyanocobalamin (vitamin B-12) 1,000 mcg capsule 2,000 mcg PO DAILY atorvastatin 40 mg tablet 40 mg PO DAILY alendronate 70 mg tablet 70 mg PO WEEKLY famotidine 20 mg tablet 20 mg PO DAILY albuterol sulfate 90 mcg/actuation HFA aerosol inhaler 1 - 2 puff INHALATION Q4-6H PRN (Reason: shortness of breath or wheezing) Qty: 8.5 3RF magnesium gluconate 27 mg magnesium (500 mg) tablet 27 mg PO DAILY biotin 5,000 mcg tablet,disintegrating 10,000 mcg PO DAILY baclofen 10 mg tablet 10 mg PO TID Qty: 270 0RF aspirin [Adult Aspirin Regimen] 81 mg tablet,delayed release (DR/EC) 81 mg PO DAILY cholecalciferol (vitamin D3) 125 mcg (5,000 unit) capsule 5,000 unit PO DAILY potassium gluconate 550 mg (90 mg) tablet 550 mg PO DAILY glucosamine-chondroitin [Osteo Bi-Flex] 250-200 mg tablet 2 tablet PO TID Rx Instructions: give after food/meal glucosamine HCl 1,500 mg tablet 1,500 mg PO DAILY Rx Instructions: administer with a meal turmeric-turmeric root extract 450-50 mg capsule PO metoprolol succinate 100 mg tablet extended release 24 hr 100 mg PO DAILY Qty: 90 1RF ibuprofen 400 mg tablet 400 mg PO QID montelukast 10 mg tablet See Rx Instructions .ROUTE .COMPLEX Qty: 30 11RF Dose Instruction: TAKE 1 TABLET BY MOUTH ONCE DAILY AT BEDTIME Rx Instructions: TAKE 1 TABLET BY MOUTH ONCE DAILY AT BEDTIME ropinirole 0.5 mg tablet 1 mg PO QHS fluticasone propionate [Flonase Allergy Relief] 50 mcg/actuation spray,suspension 1 spray intranasal BID Qty: 16 5RF Rx Instructions: administer into each nostril budesonide-formoterol [Symbicort] 80-4.5 mcg/actuation HFA aerosol inhaler 2 puff inhalation Q12H Qty: 10.2 5RF Follow-up/Referrals: Romaine,Melania Ordonez MD [Primary Care Provider] - Time of Disposition: 19:26
--- OUTSIDE RECORDS SUMMARY | 2024-11-16 19:31 | XMS_ITS | Encounter Summary ---
Author Organization [facility] Address [address] [place] [address] Phone Care Team Providers Care Green Building Energy Engineer Name Role Phone Melania Gavin MD Primary Care Provider Naya Monson MA Unavailable [phone] Encounter Details Date Type Department Care [...] on file Legal Sex Male 12:11 AM CARE ANALYST Gender Identity Male 12/03/2019 11:44 PM CDT [...] COVID: Suspected 06/09/2024 06/09/2024 06/09/2024 2:18 PM CARE ANALYST documented as of this encounter Care Teams Green Building Energy Engineer Relationship Specialty Start Date End Date Melania Gavin MD PCP - General Internal Medicine 12/13/20 Naya Monson MA [address] [place] [address] ACO Care National Sales 11/18/22 11/19/22 documented as of this encounter
--- OUTSIDE RECORDS SUMMARY | 2024-11-16 19:31 | XMS_ITS | Clinical Summary ---
Author Organization [facility] Address [address] [facility] [place] [address] Care Team Providers Care Youth Accommodation Support Worker Name Role Phone Melania Gavin MD Primary [...] 11 8 Active fluticasone (FLONASE) 50 mcg/spray Verner, Suspension 8 Active potassium gluconate 550 mg (90 mg) Tablet 550 mg. Activ e [id number] swellia serr 1,500-400-100 mg-unit-mg Tablet Take 1 [...] Sister 3 shashi Heart Disease Sister 3 sahshi High Cholesterol Sister 3 shashi Hypertension Sister [...] on file Legal Sex Male 4:03 AM TALLOW REFINER Gender Identity Not on file Sexual Orientation [...] Description 01/04/2025 2:15 PM CDT Office Visit [facility] - [place] [address] [facility] [address] [place] [address] Vijay Dumont MD [address] [facility] [address] [place] [address] Health Maintenance Due Date Last [...] Kumar MD - 01/26/2018 10:55 AM CDT [facility] Endoscopy Patient Name: Qian Rubio Procedure Date: [...] for surveillance. Procedure Code(s): --- Professional --- 71829, Colonoscopy, flexible; diagnostic, including collection of specimen(s) by brushing or washing, when performed (separate procedure) CPT copyright 2016 [employer]. All rights reserved. The codes documented in this report are preliminary and upon parts sales associate review may be revised to meet current compliance requirements. Gerardo Kumar MD 01/26/2018 10:54:54 AM This report has been signed electronically. Number of Addenda: [phone] [place] [address] Gerardo Kumar MD GI PROCEDURE ORDERABLES Final Result from Last 3 Months or Most Recently Relevant to Health Maintenance Insurance [facility] SUPP MEDICARE PART A AND B [facility] SUPP Care Teams Youth Accommodation Support Worker Relationship Specialty Start Date End Date Melania Gavin MD [address] [place] [id number] PCP - General Internal Medicine 04/03/21
--- OUTSIDE RECORDS SUMMARY | 2024-11-16 19:31 | XMS_ITS | Encounter Summary ---
Author Organization [facility] Address [address] [place] [address] Phone Care Team Providers Care Animal Control Licensing Worker Name Role Phone Melania Gavin MD Primary Care Provider Naya Monson MA Unavailable [phone] Encounter Details Date Type Department Care Team (Latest Contact Info) Description 06/24/2017 Orders Only [facility] Scanning, Provider Social History Tobacco Use Types Packs/Day Years Used Date Smoking Tobacco: Never Sex and Gender Information Value Date Recorded Sex Assigned at Not on file Legal Sex Male 12:11 AM 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
--- OUTSIDE RECORDS SUMMARY | 2024-11-16 19:31 | XMS_ITS | Encounter Summary ---
Author Organization [facility] Address [address] [place] [address] Phone Care Team Providers Care Card Filer Name Role Phone Melania Gavin MD Primary Care Provider Naya Monson MA Unavailable [phone] Encounter Details Date Type Department Care Team (Latest Contact Info) Description 06/04/2017 Orders Only [facility] Scanning, Provider Social History Tobacco Use Types Packs/Day Years Used Date Smoking Tobacco: Never Sex and Gender Information Value Date Recorded Sex Assigned at Not on file Legal Sex Male 12:11 AM DIRECTOR TELEVISION Gender Identity Male 12/03/2019 11:44 PM CDT [...] COVID: Suspected 06/09/2024 06/09/2024 06/09/2024 2:18 PM DIRECTOR TELEVISION documented as of this encounter Care Teams Card Filer Relationship Specialty Start Date End Date Melania Gavin MD PCP - General Internal Medicine 12/13/20 Naya Monson MA [address] [place] [id number] ACO Care Operational Test Mechanic 11/18/22 11/19/22 documented as of this encounter
--- OUTSIDE RECORDS SUMMARY | 2024-11-16 19:31 | XMS_ITS | Encounter Summary ---
Author Organization [facility] Address [address] [place] [address] Care Team Providers Care Bull Ladle Tender Name Role Phone Melania Gavin MD Primary Care Provider Reason for Visit * Reason Onset Date Comments Scheduling Appointments 11/10/2024 Encounter Details Date Type Department Care Team (Late st Contact Info) Description 11/10/2024 Telephone [facility] [address] [facility] [facility] [address] [place] [address] Toshia Sun MD [address] [id number] [place] [address] Scheduling Appointments Social History Tobacco [...] on file Legal Sex Male 12:11 AM INBOUND SALES CONSULTANT Gender Identity Male 12/03/2019 11:44 PM CDT [...] on filedocumented in this encounter Care Teams Bull Ladle Tender Relationship Specialty Start Date End Date Melania Gavin MD PCP - General Internal Medicine 12/13/20 documented as of this encounter
--- OUTSIDE RECORDS SUMMARY | 2024-11-16 19:31 | XMS_ITS | Encounter Summary ---
Author Organization [facility] Address [address] [place] [address] Phone Care Team Providers Care Proposal Engineer Name Role Phone Melania Gavin MD Primary Care Provider Naya Monson MA Unavailable [phone] Encounter Details Date Type Department Care Team (Latest Contact Info) Description 06/14/2017 Orders Only [facility] Scanning, Provider Social History Tobacco Use Types Packs/Day Years Used Date Smoking Tobacco: Never Sex and Gender Information Value Date Recorded Sex Assigned at Not on file Legal Sex Male 12:11 AM ADHESIVE BANDAGE MACHINE OPERATOR Gender Identity Male 12/03/2019 11:44 [...] COVID: Suspected 06/09/2024 06/09/2024 06/09/2024 2:18 PM ADHESIVE BANDAGE MACHINE OPERATOR documented as of this encounter Care Teams Proposal Engineer Relationship Specialty Start Date End Date Melania Gavin MD PCP - General Internal Medicine 12/13/20 Naya Monson MA [address] [place] [address] [address] [place] [id number] ACO Care Steel Unloader 11/18/22 11/19/22 documented as of this encounter
--- OUTSIDE RECORDS SUMMARY | 2024-11-16 19:31 | XMS_ITS | Clinical Summary ---
Author Organization [facility] Address [address] [place] [address] Care Team Providers Care Neon Sign Maker Name Role Phone Unavailable Primary Care Provider [...]
--- OUTSIDE RECORDS SUMMARY | 2024-11-16 19:31 | XMS_ITS | Encounter Summary ---
Author Organization [facility] Healthcare Address [address] [place] [address] Care Team Providers Care Research Program Internship Name Role Phone Melania Gavin MD Primary Care Provider Reason for Visit * Reason Comments Follow-up Chronic diseases Encounter Details Date Type Department Care Team (Latest Contact Info) Description 10/31/2024 1:45 PM CDT Office Visit [facility] Medical Group Primary Care [address] [place] [phone] Melania Gavin MD [address] [place] [phone] Thrombocytopenia (HCC) (Primary Dx); Recurrent major [...] on file Legal Sex Male 12:11 AM LOCKSTITCH CUP SETTER Gender Identity Male 12/03/2019 11:44 PM CDT [...] sciatica Comments: Looking into lidocaine injections at [place]; Seeing pain management Chronic right shoulder pain [...] in this encounter Progress Notes * Melania aGvin MD - 10/31/2024 1:45 PM CDT Images [...] yearly per hematology; - seeing him in [place]; Palpitations: seeing Dr. Shafer; holter with low burdon atrial/ventricular ectopy. On metoprolol. 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 Seeing GI and has had multiple scopes. - strong family hx of CAD. - started on asa - does have hiatal hernia - cut back on soda - changed simvastatin to atorvastatin PASTORA: on CPAP pulmonology in [place]. feels having more events more recently in [...] and feet feeling , Seeing neurology at [facility] and had EMG and nerve issues in [...] pain management. Dr. Lion [facility] Dr. Velasquez and Dr. Gerardo Kumar [...] (four) times a day 120 capsule 11 zmbxyargwel-E3-Damauhnwd serr 1,500-400-100 mg-unit-mg tablet Take 1 tablet [...] daily 60 capsule 11 vit B comp no.6-syxgy-D-biotin 1-60-300 mg-mg-mcg tablet Take 1 tablet by [...] sciatica Comments: Looking into lidocaine injections at [place]; Seeing pain management Chronic right shoulder pain [...] Potassium, pl 4.7 3.3 - 4.9 mmol/L [facility] Chloride 108 97 - 110 mmol/L [facility] CO2 28 22 - 32 mmol/L [facility] Anion gap 5 2 - 15 mmol/L [facility] BUN 21 6 - 25 mg/dL [facility] Creatinine 0.94 0.80 - 1.30 mg/dL [facility] Glucose 92 70 - 199 mg/dL [facility] Comment: Interpretive Data Fasting [...] 2022. Calcium 9.4 8.5 - 10.3 mg/dL [facility] Bilirubin, total 0.5 0.1 - 1.2 mg/dL [facility] Protein, pl 6.6 6.5 - 8.5 g/dL [facility] Albumin 4.4 3.5 - 5.0 g/dL [facility] Alk phos 63 40 - 130 Units/L [facility] ALT 33 7 - 55 Units/L [facility] AST 35 10 - 50 Units/L [facility] Blood 11/15/2024 2:56 PM CDT 11/15/2024 3:11 PM CDT Melania Gavin MD LAB BLOOD ORD ERABLES Final Result [facility] Department [place] [address] * Lipid panel (11/15/2024 2:56 PM CDT) [...] revised on 2017. Triglycerides 91 <=149 mg/dL [facility] Comment: Interpretive Data Ages [...] revised on 2017. HDL 64 >=40 mg/dL [facility] Comment: Interpretive Data Ages < or = [...] on 2017. LDL, calculated 68 <=129 mg/dL [facility] Comment: Interpretive Data Ages [...] on 2023. Non-HDL Cholesterol 85 mg/dL [facility] Comment: Interpretive Data Ages < or [...] last revised on 2017. Chol/HDL ratio 2 [facility] Blood 11/15/2024 2:56 PM CDT 11/15/2024 3:11 PM CDT us Melania Gavin MD LAB BLOOD ORD ERABLES Final Result [facility] Department [place] [address] * Hepatitis B core antibody, total Blood (11/15/2024 2:56 PM CDT) Hep B core IgG/IgM Nonreactive Nonreactive Blood 11/15/2024 2:56 PM CDT 11/15/2024 3:11 PM CDT us Melania Gavin MD LAB M ICROBIOLOGY - GENERAL ORDERABLES Final Result Performing Organization Address City/[facility] Co de Phone Number [facility] [place] [address] * Hepatitis B surface antibody (immune status) [...] GENERAL ORDERABLES Final Result Performing Organization Address City/[facility]/ZIP Co de Phone Number ALBIN JACINTO [facility] [place] [address] * Hepatitis B Surface Antigen Blood (11/15/2024 2:56 PM CDT) HepBsAg Nonreactive Nonreactive Blood 11/15/2024 2:56 PM CDT 11/15/2024 3:11 PM CDT us Melania Gavin MD LAB M ICROBIOLOGY - GENERAL ORDERABLES Final Result Performing Organization Address [facility] Co de Phone Number ALBIN Celis [facility] [place] [address] documented in this encounter Visit Diagnoses Diagnosis [...] documented as of this encounter Care Teams Research Program Internship Relationship Specialty Start Date End Date Melania Gavin MD PCP - General Internal Medicine 12/13/20 documented as of this encounter
--- OUTSIDE RECORDS SUMMARY | 2024-11-16 19:31 | XMS_ITS | Encounter Summary ---
Author Organization [facility] Address [address] [place] [address] Phone Care Team Providers Care Computational Scientist Name Role Phone Melania Gavin MD Primary Care Provider Naya Monson MA Unavailable [phone] Encounter Details Date Type Department Care Team (Latest Contact Info) Description 09/02/2017 Orders Only [facility] Scanning, Provider Social History Tobacco Use Types Packs/Day Years Used Date Smoking Tobacco: Never Sex and Gender Information Value Date Recorded Sex Assigned at Not on file Legal Sex Male 12:11 AM COLLAR PADDER BLINDSTITCH Gender Identity Male 12/03/2019 11:44 PM CDT [...] COVID: Suspected 06/09/2024 06/09/2024 06/09/2024 2:18 PM COLLAR PADDER BLINDSTITCH documented as of this encounter Care Teams Computational Scientist Relationship Specialty Start Date End Date Melania Gavin MD PCP - General Internal Medicine 12/13/20 Naya Monson MA [address] [place] [address] DR BAGLEY [address] [place] [phone] ACO Care Rn Hemo Dialysis 11/18/22 11/19/22 documented as of this encounter
--- OUTSIDE RECORDS SUMMARY | 2024-11-16 19:31 | XMS_ITS | Encounter Summary ---
Author Organization [facility] Address [address] [place] [address] Phone Care Team Providers Care Sample Stitcher Name Role Phone Melania Gavin MD Primary Care Provider Naya Monson MA Unavailable [phone] Encounter Details Date Type Department Care Team (Latest Contact Info) Description 05/28/2017 Orders Only [facility] Scanning, Provider Social History Tobacco Use Types Packs/Day Years Used Date Smoking Tobacco: Never Sex and Gender Information Value Date Recorded Sex Assigned at Not on file Legal Sex 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
--- OUTSIDE RECORDS SUMMARY | 2024-11-16 19:31 | XMS_ITS | Encounter Summary ---
Author Organization [facility] Healthcare Address [address] [place] [address] Care Team Providers Care Electron Beam Machine Welder Setter Name Role Phone Melania Gavin MD Primary Care Provider Encounter Details Date Type Department Care Team (Late st Contact Info) Description 11/15/2024 Results Follow-Up [facility] Medical Group Primary Care [address] [place] [phone] Melania Gavin MD [address] [place] [phone] Comprehensive metabolic panel, Lipid panel, Hepatitis [...] on file Legal Sex Male 12:11 AM KENNEL WORKER Gender Identity Male 12/03/2019 11:44 PM CDT [...] on filedocumented in this encounter Care Teams Electron Beam Machine Welder Setter Relationship Specialty Start Date End Date Melania Gavin MD PCP - General Internal Medicine 12/13/20 documented as of this encounter
--- OUTSIDE RECORDS SUMMARY | 2024-11-16 19:31 | XMS_ITS | Encounter Summary ---
Author Organization 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
--- OUTSIDE RECORDS SUMMARY | 2024-11-16 19:31 | XMS_ITS | Referral Summary ---
Author Organization [facility] Address [address] [facility] [place] [address] Care Team Providers Care Engine Lathe Operator Name Role Phone Melania Gavin MD Primary Care Provider Encounters Date Type Department Care Team Description 11/15/2024 Results Follow-Up [facility] Primary Care [address] [place] [phone] Melania Gavin MD Comprehensive metabolic panel, Lipid panel, Hepatitis B core antibody, total Blood, Additional followed-up results: 3 11/15/2024 4:00 PM CDT Lab [facility] Advanced [facility] ([facility]) [address] [place] [phone] Thrombocytopenia (HCC); Routine general medical examination at a health care facility; Need for hepatitis B screening test 11/13/2024 Orders Only [facility] [place] [facility] [address] [place] [address] Advanced Medicine [address] [place] [address] Toshia Sun MD Thrombocytopenia (HCC) (Primary Dx); Postlaminectomy syndrome; Chronic bilateral low back pain with bilateral sciatica; Intervertebral disc disorder with radiculopathy of lumbar region 11/10/2024 Telephone [facility] [place] [facility] [address] [place] [address] Advanced Medicine [address] [place] [address] Toshia Sun MD Scheduling Appointments 11/09/2024 12:00 PM CDT Office Visit [facility] Movement Disorders [address] [facility] 7th [place] [address] Ruben Fang MD PhD Restless leg syndrome (Primary Dx) 10/31/2024 1:45 PM CDT Office Visit [facility] Primary Care [address] [facility] [address] [place] [phone] Melania Gavin MD Thrombocytopenia (HCC) (Primary Dx); Recurrent major depressive disorder, in partial remission; Chronic bilateral low back pain with bilateral sciatica; Chronic right shoulder pain; Routine general medical examination at a health care facility; Need for hepatitis B screening test 10/18/2024 Telephone [facility] [address] [place] [address] [address] [place] [phone] Devika Luna RMA 10/14/2024 11:25 AM CDT Lab [facility] Lab [address] [place] [address] BPH with obstruction/lower urinary tract symptoms 10/11/2024 Telephone [facility] Surgery [facility] [place] [address] Melva Friedman 10/11/2024 Orders Only [facility] [address] [place] [address] [address] [place] [phone] Ruben Morrison MD BPH with obstruction/lower urinary tract symptoms (Primary Dx) 10/11/2024 Telephone [facility] Surgery [address] [place] [address] Carlie Franklin CMA 10/06/2024 Orders Only [facility] [address] [place] [address] [address] [place] [phone] Ruben Morrison MD 10/06/2024 Telephone [facility] Surgery [address] [place] [address] Amadeo Washington 10/05/2024 1:30 PM CDT Office Visit [facility] Cardiology [address] [facility] [address] [place] [phone] Ta Nolen MD PVC (premature ventricular contraction) (Primary Dx); Hyperlipidemia, unspecified hyperlipidemia type 09/28/2024 4:00 PM CDT Telemedicine [facility] [address] [place] [address] [address] [place] [phone] Ruben Morrison MD BPH with obstruction/lower urinary tract symptoms (Primary Dx) 09/22/2024 Telephone [facility] [address] [place] [phone] Luna Devika KHADAREwa 09/19/2024 3:15 PM CDT - 09/19/2024 11:59 PM CDT Hospital Encounter [facility] [address] [place] [address] BPH with obstruction/lower urinary tract symptoms Discharge Disposition: Discharge to home or self care 09/18/2024 Documentation [facility] OP Physical Therapy [address] [place] [address] Kimberly Millan, PT 09/08/2024 12:49 PM CDT - 09/08/2024 11:59 PM CDT Hospital Encounter [facility] Diagnostic Imaging [address] [place] [address] Chronic right shoulder pain Discharge Disposition: Discharge to home or self care 08/31/2024 11:15 AM CDT Office Visit [facility] Orthopedics and Sports [facility] [address] [place] [phone] Donnie Carvajal MD Chronic right shoulder pain (Primary Dx) 08/31/2024 1:20 PM CDT Office Visit [facility] [address] [place] [phone] Ruben Morrison MD Elevated PSA (Primary Dx); Enlarged prostate; BPH with obstruction/lower urinary tract symptoms; Pelvic floor dysfunction 08/30/2024 3:55 PM CDT Lab [facility] Advanced Medicine [facility] Advanced Medicine ([facility]) [address] [place] [phone] Elevated PSA 08/30/2024 Telephone [facility] [address] [place] [phone] Devika Luna RMA from Last 3 Months Allergies No known active allergies Medications cholecalciferol (VITAMIN D-3) 5,000 unit tablet Take by mouth 3,000 units a day Active docusate sodium (COLACE) 100 mg capsuleIndications :constipation Take 3 capsules (300 mg total) by mouth daily Active multivit with minerals/lutein (MULTIVITAMIN 50 PLUS ORAL) Take 1 capsule by mouth. Active vit B comp no.9-kzyzb-F-bioti n 1-60-300 mg-mg-mcg tabletIndications: Vitamin Deficiency Prevention Take 1 tablet by mouth Active potassium gluconate 550 mg (90 mg) tablet 1 tablet (550 mg total) Active biotin 1 mg tablet Take 2.5 tablets (2,500 mcg total) by mouth daily Active ekhvkufrctj-Q7-Wlf wellia serr 1,500-400-100 mg-unit-mg tablet Take 1 [...] the original. Dr. Vides is at location [address] [place] [address]. and . Problem Noted Date Diagnosed Date [...] HADS. No evidence of daytime drowsiness on Rowland scale. Moderate evidence of REM Behavior Disorder [...] asleep (currently 60-90 minutes). This encounter's total enkr-da-mxvy time was 60 minutes. I spent more [...] disorder. Assessment & Plan (05/20/2024 6:19 PM UNHAIRING INSPECTOR): ASSESSMENT He has had RLS since 2018 [...] doses. Assessment & Plan (03/07/2022 4:27 PM UNHAIRING INSPECTOR): ASSESSMENT He has had RLS since 2018 [...] ropirole. Assessment & Plan (04/04/2021 6:09 PM UNHAIRING INSPECTOR): ASSESSMENT - 60 y.o. man with RLS [...] minutes to fall asleep. This encounter's total wcyp-df-orks time was greater than 30 minutes. I [...] Immunization Administration Dates Next Due COVID-19 mRNA ([employer]) 0.3 m L (30 mcg) vaccine (12 [...] on file Legal Sex Male 12:11 AM UNHAIRING INSPECTOR Gender Identity Male 12/03/2019 11:44 PM CDT [...] as needed Medical Devices Implanted Type Area English Composition Instructor Device Identifier Shelf Expiration Date Model / [...] CDT Routine general medical examination at a [facility] care facility CBC WITH AUTO DIFFERENTIAL [...] ORD ERABLES Final Result ALBIN JACINTO One [facility] Department of [place] [address] * Differential, auto (11/15/2024 2:56 PM CDT) Neutrophil abs 3.82 1.50 - 6.50 K/cumm Imm gran abs 0.01 0.00 - 0.10 K/cumm [facility] Lymphocyte abs 0.85 0.80 - 3.30 K/cumm [facility] Monocyte abs 0.56 0.20 - 0.80 K/cumm [facility] Eosinophil abs 0.17 0.00 - 0.50 K/cumm [facility] Basophil abs 0.03 0.00 - 0.10 K/cumm [facility] Neutrophil pct 70.2 % [facility] Comment: Interpretive Data Percent cell count reference ranges are not reported, since discordance with absolute values may lead to misinterpretation of CBC data. Current Interpretive Data was last revised on 2017. Imm gran pct 0.2 % [facility] Comment: Interpretive Data Percent cell count reference ranges are not reported, since discordance with absolute values may lead to misinterpretation of CBC data. Current Interpretive Data was last revised on 2017. Lymphocyte pct 15.6 % [facility] Comment: Interpretive Data Percent cell count reference ranges are not reported, since discordance with absolute values may lead to misinterpretation of CBC data. Current Interpretive Data was last revised on 2017. Monocyte pct 10.3 % [facility] Comment: Interpretive Data Percent cell count reference ranges are not reported, since discordance with absolute values may lead to misinterpretation of CBC data. Current Interpretive Data was last revised on 2017. Eosinophil pct 3.1 % [facility] Comment: Interpretive Data Percent cell count reference ranges are not reported, since discordance with absolute values may lead to misinterpretation of CBC data. Current Interpretive Data was last revised on 2017. Basophil pct 0.6 % [facility] Comment: Interpretive Data Percent cell count reference ranges are not reported, since discordance with absolute values may lead to misinterpretation of CBC data. Current Interpretive Data was last revised on 2017. Blood 11/15/2024 2:56 PM CDT 11/15/2024 3:11 PM CDT us Toshia Sun MD LAB BLOOD ORDERABLES Final Result [facility] [place] [address] * (ABNORMAL) CBC with auto differential (11/15/2024 2:56 PM CDT) [facility] WBC 5.44 3.80 - 9.90 K/cumm Hgb 12.8(L) 13.0 - 17.5 g/dL [facility] Hct 37.8(L) 38.9 - 50.3 % [facility] Plt 105(L) 150 - 400 K/cumm [facility] MPV 11.0 9.1 - 12.3 fL [facility] RBC 4.13(L) 4.30 - 5.80 M/cumm [facility] MCV 91.5 81.3 - 96.4 fL [facility] MCH 31.0 27.1 - 33.3 pg [facility] MCHC 33.9 32.3 - 35.7 g/dL [facility] RDW CV 12.8 11.1 - 14.9 % [facility] RDW SD 42.5 35.7 - 48.1 fL [facility] NRBC abs 0.00 0.00 - 0.01 K/cumm [facility] Blood 11/15/2024 2:56 PM CDT 11/15/2024 3:11 PM CDT us Toshia Sun MD LAB BLOOD ORDERABLES Final Result Performing Organization Address City/State/[facility] Co de Phone Number [facility] [place] [address] * Hepatitis B core antibody, total Blood (11/15/2024 2:56 PM CDT) [facility] Hep B core IgG/IgM Nonreactive Nonreactive Blood 11/15/2024 2:56 PM CDT 11/15/2024 3:11 PM CDT us Melania Gavin MD LAB M ICROBIOLOGY - GENERAL ORDERABLES Final Result Performing Organization Address City/[facility] Co de Phone Number [facility] [place] [address] * Hepatitis B surface antibody (immune status) Blood (11/15/2024 2:56 PM CDT) HBsAb (immune status) Nonreactive Comment:This result is consi stent with a lack of immunity to Hepatitis B Virus when used in the setting of routine screening. Current interpretative data was last revised on 21 Blood 11/15/2024 2:56 PM CDT 11/15/2024 3:11 PM CDT Melania Gavin MD LAB [facility]AL ORDERABLES Final Result Performing Organization Address [facility] de Phone Number ALBIN [facility] [place] [address] * Hepatitis B Surface Antigen Blood (11/15/2024 2:56 PM CDT) HepBsAg Nonreactive Nonreactive Blood 11/15/2024 2:56 PM CDT 11/15/2024 3:11 PM CDT Melania Gavin MD LAB [facility] - GENERAL ORDERABLES Final Result Performing Organization Address [facility] Co de Phone Number [facility] [place] [address] * Lipid panel (11/15/2024 2:56 PM CDT) [...] revised on 2017. Triglycerides 91 <=149 mg/dL [facility] Comment: Interpretive Data Ages < [...] revised on 2017. HDL 64 >=40 mg/dL [facility] Comment: Interpretive Data Ages < or = [...] on 2017. LDL, calculated 68 <=129 mg/dL [facility] Comment: Interpretive Data Ages < or = [...] revised on 2023. Non-HDL Cholesterol 85 mg/dL [facility] Comment: Interpretive Data Ages < [...] last revised on 2017. Chol/HDL ratio 2 [facility] Blood 11/15/2024 2:56 PM CDT 11/15/2024 3:11 PM CDT Melania Gavin MD LAB BLOOD ORD ERABLES Final Result [facility] One [facility] Department [place] [address] * Comprehensive metabolic panel (11/15/2024 2:56 PM CDT) Sodium 141 135 - 145 mmol/L Potassium, pl 4.7 3.3 - 4.9 mmol/L [facility] Chloride 108 97 - 110 mmol/L [facility] CO2 28 22 - 32 mmol/L [facility] Anion gap 5 2 - 15 mmol/L [facility] BUN 21 6 - 25 mg/dL [facility] Creatinine 0.94 0.80 - 1.30 mg/dL [facility] Glucose 92 70 - 199 mg/dL [facility] Comment: Interpretive Data Fasting glucose [...] Calcium 9.4 8.5 - 10.3 mg/dL [facility] Bilirubin, total 0.5 0.1 - 1.2 mg/dL [facility] Protein, pl 6.6 6.5 - 8.5 g/dL [facility] Albumin 4.4 3.5 - 5.0 g/dL [facility] Alk phos 63 40 - 130 Units/L [facility] ALT 33 7 - 55 Units/L [facility] AST 35 10 - 50 Units/L [facility] Blood 11/15/2024 2:56 PM CDT 11/15/2024 3:11 PM CDT us Melania Gavin MD LAB BLOOD ORD ERABLES Final Result [facility] One [facility] Department [place] [address] * Urine culture Urine, bladder (10/14/2024 11:36 AM CDT) Report Final Report: No growth Comment:Testing performed by : [facility], [address] [facility], [place]., [address] Urine, bladder 10/14/2024 11 :36 AM CDT 10/14/2024 7:24 PM CDT Narrative ALBIN Dago 10/15/2024 8:08 PM CDT Testing performed by [facility] Microbiology Laboratory ([phone]) us Ruben Morrison MD LAB MICROBIOLOGY - GENERAL ORDER TYRONE Final Result [facility] [address] Department [place] [address] * POCT lipid panel (10/05/2024 2:33 PM [...] Doron Paz M.D. LB: ARBEN Report ID: [id number] Reading Location: [id number] Procedure Note Doron Paz MD - 10/06/2024 [...] Doron Paz M.D. LB: ARBEN Report ID: [id number] Reading Location: [place] [address] Ruben Morrison MD [facility] PROCEDURES Final Result * POCT creatinine for contrast evaluation (09/19/2024 3:31 PM CDT) Creatinine POC 0.90 0.80 - 1.30 mg/dL Comment:Testing performed by : [facility], [address] [place] [address]., [id number] Blood 09/19/2024 3:31 PM CDT 09/19/2024 3:31 PM CDT us Ruben Morrison MD POINT OF CARE TEST ORDERABLES Fi nal Result ALBIN [facility] [place] [address] * FL Fluoro Guided Injection Shoulder Glenohumeral [...] Willi Ashraf M.D. KR: JULIAN Report ID: [id number] Reading Location: [id number] Procedure Note Willi Ashraf MD - 09/08/2024 [...] Willi Ashraf M.D. KR: JULIAN Report ID: [id number] Reading Location: [id number] Donnie Carvajal MD IMG FLUOROSCOPY PROCEDU RES Final Result * Measure post void residual (08/31/2024 1:16 PM CDT) Venessa Rosado, [facility] - 08/31/2024 1:16 PM CDT Measurement of [...] ORDERABLES Final Resul t ALBIN [facility] Department [place] [address] * COLONOSCOPY (07/08/2022) Scribed Colonoscopy Normal Historical Provider HEALTH MAINTENANCE Final Result from Last 3 Months or Most Recently Relevant to Health Maintenance Insurance [facility] MEDICARE SUPPLEMENT MEDICARE [facility] MEDICARE [employer] MEDICARE SUPPLEMENT Care Teams Engine Lathe Operator Relationship Specialty Start Date End Date Melania Gavin MD PCP - General Internal Medicine 12/13/20
--- OUTSIDE RECORDS SUMMARY | 2024-11-16 19:31 | XMS_ITS | Encounter Summary ---
Author Organization [facility] Healthcare Address [address] [place] [address] Care Team Providers Care Brake Drum Lathe Operator Name Role Phone Melania Gavin MD Primary Care Provider ErmiasNaya MA Unavailable [phone] Encounter Details Date Type Department Care Team (Late st Contact Info) Description 04/30/2022 Telephone [facility] [place] [facility] [address] [facility] Advanced Medicine [address] [place], [place] [phone] Toshia Sun MD [address] [facility] [id number] [place], [place] [phone] Social History Tobacco Use Types Packs/Day Years [...] on file Legal Sex Male 12:11 AM ZANJERO Gender Identity Male 12/03/2019 11:44 PM CDT [...] COVID: Suspected 06/09/2024 06/09/2024 06/09/2024 2:18 PM ZANJERO documented as of this encounter Care Teams Brake Drum Lathe Operator Relationship Specialty Start Date End Date Melaina Gavin MD PCP - General Internal Medicine 12/13/20 Naya Monson MA [address] [facility] [address] [address] [place] [address] [employer] Care Supervisor Paper Coating 11/18/22 11/19/22 documented as of this encounter
--- OUTSIDE RECORDS SUMMARY | 2024-11-16 19:31 | XMS_ITS | Clinical Summary ---
Author Organization [facility] Address [address] [place] [address] Care Team Providers Care Director Television News Name Role Phone Melania Gavin MD Primary Care Provider Allergies No known active allergies Medications cholecalciferol (VITAMIN D-3) 5,000 unit tablet Take by mouth 3,000 units a day Active docusate sodium (COLACE) 100 mg capsuleIndications :constipation Take 3 capsules (300 mg total) by mouth daily Active multivit with minerals/lutein (MULTIVITAMIN 50 PLUS ORAL) Take 1 capsule by mouth. Active vit B comp no.0-hqvuo-R-bioti n 1-60-300 mg-mg-mcg tabletIndications: Vitamin Deficiency Prevention Take 1 tablet by mouth Active potassium gluconate 550 mg (90 mg) tablet 1 tablet (550 mg total) Active biotin 1 mg tablet Take 2.5 tablets (2,500 mcg total) by mouth daily Active odzslrkqttk-N4-Fwm wellia serr 1,500-400-100 mg-unit-mg tablet Take 1 [...] the original. Dr. Vides is at location [address] [place] [address]. and . Problem Noted Date Diagnosed Date [...] HADS. No evidence of daytime drowsiness on Russell scale. Moderate evidence of REM Behavior Disorder [...] asleep (currently 60-90 minutes). This encounter's total lski-qj-mlgv time was 60 minutes. I spent more [...] disorder. 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 Assessment & Plan (03/07/2022 4:27 PM COMMERCIAL LOAN OFFICER): ASSESSMENT He has had RLS since [...] ropirole. Assessment & Plan (04/04/2021 6:09 PM COMMERCIAL LOAN OFFICER): ASSESSMENT - 60 y.o. man with [...] minutes to fall asleep. This encounter's total etqz-or-wyxf time was greater than 30 minutes. I [...] Team Description 11/15/2024 4:00 PM CDT Lab [facility] [address] [place] [address] Thrombocytopenia (HCC); Routine general medical examination at a health care facility; Need for hepatitis B screening test 11/15/2024 Results Follow-Up [facility] Primary Care [address] [place] [address] [address] [place] [address] Melania Gavin MD Comprehensive metabolic panel, Lipid panel, Hepatitis B core antibody, total Blood, Additional followed-up results: 3 11/13/2024 Orders Only [facility] Center at the [facility] [address] [facility] [address] [place] [address] Toshia Sun MD Thrombocytopenia (HCC) (Primary Dx); Postlaminectomy syndrome; Chronic bilateral low back pain with bilateral sciatica; Intervertebral disc disorder with radiculopathy of lumbar region 11/10/2024 Telephone [facility] [address] [place] [address] Toshia Sun MD Scheduling Appointments 11/09/2024 12:00 PM CDT Office Visit [facility] [address] [place] [address] Ruben Fang MD PhD Restless leg syndrome (Primary Dx) 10/31/2024 1:45 PM CDT Office Visit [facility] Primary Care [address] [place] [phone] Melania Gavin MD Thrombocytopenia (HCC) (Primary Dx); Recurrent major depressive disorder, in partial remission; Chronic bilateral low back pain with bilateral sciatica; Chronic right shoulder pain; Routine general medical examination at a health care facility; Need for hepatitis B screening test 10/18/2024 Telephone [facility] [address] [place] [address] [place] [phone] Devika Luna RMA 10/14/2024 11:25 AM CDT Lab [facility] [address] [place] [address] BPH with obstruction/lower urinary tract symptoms 10/11/2024 Telephone [facility] [address] [place] [address] Melva Friedman 10/11/2024 Orders Only [facility] [address] [place] [address] [place] [phone] Ruben Morrison MD BPH with obstruction/lower urinary tract symptoms (Primary Dx) 10/11/2024 Telephone [facility] [address] [place] [address] Carlie Franklin CMA 10/06/2024 Orders Only [facility] [address] [facility] [address] [place] [address] Ruben Morrison MD 10/06/2024 Telephone [facility] [address] [place] [address] Amadeo Washington 10/05/2024 1:30 PM CDT Office Visit [facility] Cardiology [address] [facility] [address] [place] [phone] Ta Nolen MD PVC (premature ventricular contraction) (Primary Dx); Hyperlipidemia, unspecified hyperlipidemia type 09/28/2024 4:00 PM CDT Telemedicine [facility] [address] [place] [address] [address] [place] [address] Ruben Morrison MD BPH with obstruction/lower urinary tract symptoms (Primary Dx) 09/22/2024 Telephone [facility] [address] [place] [address] [address] [place] [address] Devika Luna RMA 09/19/2024 3:15 PM CDT - 09/19/2024 11:59 PM CDT Hospital Encounter [facility] [address] [place] [address] BPH with obstruction/lower urinary tract symptoms Discharge Disposition: Discharge to home or self care 09/18/2024 Documentation [facility] OP Physical Therapy [address] [address] Kimberly Millan, PT 09/08/2024 12:49 PM CDT - 09/08/2024 11:59 PM CDT Hospital Encounter [facility] Diagnostic Imaging [address] [place] [address] Chronic right shoulder pain Discharge Disposition: Discharge to home or self care 08/31/2024 1:20 PM CDT Office Visit [facility] [address] [facility] [address] [place] [address] Ruben Morrison MD Elevated PSA (Primary Dx); Enlarged prostate; BPH with obstruction/lower urinary tract symptoms; Pelvic floor dysfunction 08/31/2024 11:15 AM CDT Office Visit [facility] Medical Group Orthopedics and Sports Medicine [address] [facility] [address] [place] [address] Donnie Carvajal MD Chronic right shoulder pain (Primary Dx) 08/30/2024 3:55 PM CDT Lab [facility] Advanced Medicine [facility] ([facility]) [address] [place] [phone] Elevated PSA 08/30/2024 Telephone [facility] [address] [facility] [address] [place] [address] Devika Luna RMA from Last 3 Months Immunizations Immunization Administration Dates Next Due COVID-19 mRNA (VMTurbo) 0.3 m L (30 mcg) vaccine (12 [...] 03/02/2024,12/29/2021 Surgical History Surgery Date Site/Laterality Comments IA ARTHRD ANT INTERBODY MIN DSC LUMBAR Lumbar Vertebral Fusion - (Added by TW Conv) IA TONSILLECTOMY PRIMARY/SECONDARY <AGE 11 Tonsillectomy - (Added [...] file Legal Sex Male 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 Gender Identity Male 12/03/2019 11:44 PM [...] as needed Medical Devices Implanted Type Area [employer] Device Identifier Shelf Expiration Date Model / Serial / Lot Screws And Rods N/A: Back Procedures Procedure Name Priority Date/Time Associated Diagnosis Comments EGFR Routine 11/15/2024 2:56 PM CDT Routine general medical examination at a health care facility DIFFERENTIAL AUTO Routine 11/15/2024 2:5 6 PM CDT Thrombocytopenia (HCC) LIPID PANEL Routine 11/15/2024 2:56 PM CDT Routine general medical examination at a [facility] care facility COMPREHENSIVE METABOLIC PANEL Routine 11/15/2024 2:56 PM CDT Routine general medical examination at a [facility] care facility CBC WITH AUTO DIFFERENTIAL [...] LAB BLOOD ORD ERABLES Final Result [facility] [place] [address] * Differential, auto (11/15/2024 2:56 PM CDT) Neutrophil abs 3.82 1.50 - 6.50 K/cumm Imm gran abs 0.01 0.00 - 0.10 K/cumm [facility] Lymphocyte abs 0.85 0.80 - 3.30 K/cumm [facility] Monocyte abs 0.56 0.20 - 0.80 K/cumm [facility] Eosinophil abs 0.17 0.00 - 0.50 K/cumm [facility] Basophil abs 0.03 0.00 - 0.10 K/cumm [facility] Neutrophil pct 70.2 % [facility] Comment: Interpretive Data Percent cell count reference ranges are not reported, since discordance with absolute values may lead to misinterpretation of CBC data. Current Interpretive Data was last revised on 2017. Imm gran pct 0.2 % [facility] Comment: Interpretive Data Percent cell count reference ranges are not reported, since discordance with absolute values may lead to misinterpretation of CBC data. Current Interpretive Data was last revised on 2017. Lymphocyte pct 15.6 % [facility] Comment: Interpretive Data Percent cell count reference ranges are not reported, since discordance with absolute values may lead to misinterpretation of CBC data. Current Interpretive Data was last revised on 2017. Monocyte pct 10.3 % [facility] Comment: Interpretive Data Percent cell count reference ranges are not reported, since discordance with absolute values may lead to misinterpretation of CBC data. Current Interpretive Data was last revised on 2017. Eosinophil pct 3.1 % [facility] Comment: Interpretive Data Percent cell count reference ranges are not reported, since discordance with absolute values may lead to misinterpretation of CBC data. Current Interpretive Data was last revised on 2017. Basophil pct 0.6 % [facility] Comment: Interpretive Data Percent cell count reference ranges are not reported, since discordance with absolute values may lead to misinterpretation of CBC data. Current Interpretive Data was last revised on 2017. Blood 11/15/2024 2:56 PM CDT 11/15/2024 3:11 PM CDT us Toshia Sun MD LAB BLOOD ORDERABLES Final Result [facility] [place] [address] * (ABNORMAL) CBC with auto differential (11/15/2024 2:56 PM CDT) [facility] WBC 5.44 3.80 - 9.90 K/cumm Hgb 12.8(L) 13.0 - 17.5 g/dL [facility] Hct 37.8(L) 38.9 - 50.3 % [facility] Plt 105(L) 150 - 400 K/cumm [facility] MPV 11.0 9.1 - 12.3 fL [facility] RBC 4.13(L) 4.30 - 5.80 M/cumm [facility] MCV 91.5 81.3 - 96.4 fL [facility] MCH 31.0 27.1 - 33.3 pg [facility] MCHC 33.9 32.3 - 35.7 g/dL [facility] RDW CV 12.8 11.1 - 14.9 % [facility] RDW SD 42.5 35.7 - 48.1 fL [facility] NRBC abs 0.00 0.00 - 0.01 K/cumm [facility] Blood 11/15/2024 2:56 PM CDT 11/15/2024 3:11 PM CDT us Toshia Sun MD LAB BLOOD ORDERABLES Final Result [facility] [place] [address] * Hepatitis B core antibody, total Blood (11/15/2024 2:56 PM CDT) [facility] Hep B core IgG/IgM Nonreactive Nonreactive Blood 11/15/2024 2:56 PM CDT 11/15/2024 3:11 PM CDT Melania Gavin MD LAB [facility] - GENERAL ORDERABLES Final Result Performing Organization Address City/[facility] de Phone Number [facility] [place] [place] [address] * Hepatitis B surface antibody (immune status) Blood (11/15/2024 2:56 PM CDT) Pathologist [facility] HBsAb (immune status) Nonreactive Comment:This result is consi stent with a lack of immunity to Hepatitis B Virus when used in the setting of routine screening. Current interpretative data was last revised on 21 Blood 11/15/2024 2:56 PM CDT 11/15/2024 3:11 PM CDT us Melania Gavin MD LAB [facility] - GENERAL ORDERABLES Final Result Performing Organization Address City/[facility] Co de Phone Number AL[facility] [place] [address] * Hepatitis B Surface Antigen Blood (11/15/2024 2:56 PM CDT) [facility] HepBsAg Nonreactive Nonreactive Blood 11/15/2024 2:56 PM CDT 11/15/2024 3:11 PM CDT Melania Gavin MD LAB [facility] - GENERAL ORDERABLES Final Result Performing Organization Address City/[facility] Co de Phone Number [facility] [place] [address] * Lipid panel (11/15/2024 2:56 PM CDT) [facility] Cholesterol 149 30 - 199 mg/dL [...] revised on 2017. Triglycerides 91 <=149 mg/dL [facility] Comment: Interpretive Data Ages < or [...] revised on 2017. HDL 64 >=40 mg/dL [facility] Comment: Interpretive Data Ages < or [...] on 2017. LDL, calculated 68 <=129 mg/dL [facility] Comment: Interpretive Data Ages < or [...] revised on 2023. Non-HDL Cholesterol 85 mg/dL [facility] Comment: Interpretive Data Ages < or [...] last revised on 2017. Chol/HDL ratio 2 [facility] Blood 11/15/2024 2:56 PM CDT 11/15/2024 3:11 PM CDT us Melania Gavin MD LAB BLOOD ORD ERABLES Final Result [facility] Department [place] [address] * Comprehensive metabolic panel (11/15/2024 2:56 PM CDT) Sodium 141 135 - 145 mmol/L Potassium, pl 4.7 3.3 - 4.9 mmol/L [facility] Chloride 108 97 - 110 mmol/L [facility] CO2 28 22 - 32 mmol/L [facility] Anion gap 5 2 - 15 mmol/L [facility] BUN 21 6 - 25 mg/dL [facility] Creatinine 0.94 0.80 - 1.30 mg/dL [facility] Glucose 92 70 - 199 mg/dL [facility] Comment: Interpretive Data Fasting glucose >/= [...] 2022. Calcium 9.4 8.5 - 10.3 mg/dL [facility] Bilirubin, total 0.5 0.1 - 1.2 mg/dL [facility] Protein, pl 6.6 6.5 - 8.5 g/dL [facility] Albumin 4.4 3.5 - 5.0 g/dL [facility] Alk phos 63 40 - 130 Units/L [facility] ALT 33 7 - 55 Units/L [facility] AST 35 10 - 50 Units/L [facility] Blood 11/15/2024 2:56 PM CDT 11/15/2024 3:11 PM CDT Melania Gavin MD LAB BLOOD ORD ERABLES Final Result [facility] Department [place] [address] * Urine culture Urine, bladder (10/14/2024 11:36 AM CDT) Report Final Report: No growth Comment:Testing performed by : [facility], [address] [facility], [place]., [address] Urine, bladder 10/14/2024 11 :36 AM CDT 10/14/2024 7:24 PM CDT Narrative [facility] - 10/15/2024 8:08 PM CDT Testing performed by [facility] Microbiology Laboratory ([phone]) Ruben Morrison MD LAB MICROBIOLOGY - GENERAL ORDER TYRONE Final Result [facility] [address] [facility] Department [place] [address] * POCT lipid panel (10/05/2024 [...] Doron Paz M.D. LB: LB Report ID: [id number] Reading Location: [id number] Procedure Note Doron Paz MD - 10/06/2024 [...] Doron Paz M.D. LB: ARBEN Report ID: [id number] Reading Location: [id number] Ruben Morrison MD IM CT PROCEDURES Final Result * POCT creatinine for contrast evaluation (09/19/2024 3:31 PM CDT) Creatinine POC 0.90 0.80 - 1.30 mg/dL Comment:Testing performed by : [facility], [address] [place] [address], [place]., [address] Blood 09/19/2024 3:31 PM CDT 09/19/2024 3:31 PM CDT us Ruben Morrison MD POINT OF CARE TEST ORDERABLES Fi nal Result [facility] [address] [facility] Department [place] [address] * FL Fluoro Guided Injection Shoulder Glenohumeral [...] Willi Ashraf M.D. KR: JULIAN Report ID: [id number] Reading Location: [id number] Procedure Note Willi Ashraf MD - 09/08/2024 [...] Willi Ashraf M.D. KR: KR Report ID: [id number] Reading Location: [place] [address] Donnie Carvajal MD IMG FLUOROSCOPY PROCEDU RES Final Result * Measure post void residual (08/31/2024 1:16 PM CDT) Venessa Rosado, [facility] - 08/31/2024 1:16 PM CDT Measurement of [...] LAB BLOOD ORDERABLES Final Resul t [facility] [place] [address] * COLONOSCOPY (07/08/2022) Scribed Colonoscopy Normal Historical Provider HEALTH MAINTENANCE Final Result from Last 3 Months or Most Recently Relevant to Health Maintenance Insurance MEDICARE [facility] MEDICARE SUPPLEMENT MEDICARE [facility]LY [facility] MEDICARE BLUE CROSS MEDICARE SUPPLEMENT Care Teams Director Television News Relationship Specialty Start Date End Date Melania Gavin MD PCP - General Internal Medicine 12/13/20
--- OUTSIDE RECORDS SUMMARY | 2024-11-16 19:31 | XMS_ITS | Encounter Summary ---
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 Gender Identity Male 12/03/2019 11:44 PM CDT [...] CDT Routine general medical examination at a [facility] documented in this encounter Results * [...] MD LAB BLOOD ORD ERABLES Final Result [facility] Department [place] [address] * Differential, auto (11/15/2024 2:56 PM CDT) Pathologist [facility] Neutrophil abs 3.82 1.50 - 6.50 K/cumm Imm gran abs 0.01 0.00 - 0.10 K/cumm [facility] Lymphocyte abs 0.85 0.80 - 3.30 K/cumm [facility] Monocyte abs 0.56 0.20 - 0.80 K/cumm [facility] Eosinophil abs 0.17 0.00 - 0.50 K/cumm [facility] Basophil abs 0.03 0.00 - 0.10 K/cumm [facility] Neutrophil pct 70.2 % [facility] Comment: Interpretive Data Percent cell count reference ranges are not reported, since discordance with absolute values may lead to misinterpretation of CBC data. Current Interpretive Data was last revised on 2017. Imm gran pct 0.2 % [facility] Comment: Interpretive Data Percent cell count reference ranges are not reported, since discordance with absolute values may lead to misinterpretation of CBC data. Current Interpretive Data was last revised on 2017. Lymphocyte pct 15.6 % [facility] Comment: Interpretive Data Percent cell count reference ranges are not reported, since discordance with absolute values may lead to misinterpretation of CBC data. Current Interpretive Data was last revised on 2017. Monocyte pct 10.3 % [facility] Comment: Interpretive Data Percent cell count reference ranges are not reported, since discordance with absolute values may lead to misinterpretation of CBC data. Current Interpretive Data was last revised on 2017. Eosinophil pct 3.1 % [facility] Comment: Interpretive Data Percent cell count reference ranges are not reported, since discordance with absolute values may lead to misinterpretation of CBC data. Current Interpretive Data was last revised on 2017. Basophil pct 0.6 % [facility] Comment: Interpretive Data Percent cell count reference ranges are not reported, since discordance with absolute values may lead to misinterpretation of CBC data. Current Interpretive Data was last revised on 2017. Blood 11/15/2024 2:56 PM CDT 11/15/2024 3:11 PM CDT us Toshia Sun MD LAB BLOOD ORDERABLES Final Result [facility] Department of Laboratories [place], [place] [id number] * Hepatitis B Surface Antigen Blood (11/15/2024 2:56 PM CDT) HepBsAg Nonreactive Nonreactive Blood 11/15/2024 2:56 PM CDT 11/15/2024 3:11 PM CDT Melania Gavin MD LAB [facility] - GENERAL ORDERABLES Final Result Performing Organization Address City/[facility] Co de Phone Number [facility] [place] [address] * Hepatitis B surface antibody (immune status) Blood (11/15/2024 2:56 PM CDT) HBsAb (immune status) Nonreactive Comment:This result is consi stent with a lack of immunity to Hepatitis B Virus when used in the setting of routine screening. Current interpretative data was last revised on 21 Blood 11/15/2024 2:56 PM CDT 11/15/2024 3:11 PM CDT us Melania Gavin MD LAB [facility] - GENERAL ORDERABLES Final Result Performing Organization Address [facility] Co de Phone Number [facility] [place] [address] * Hepatitis B core antibody, total Blood (11/15/2024 2:56 PM CDT) Hep B core IgG/IgM Nonreactive Nonreactive Blood 11/15/2024 2:56 PM CDT 11/15/2024 3:11 PM CDT us Melania Gavin MD LAB M [facility] GENERAL ORDERABLES Final Result Performing Organization Address City/[facility] Co de Phone Number [facility] [place] [address] * Lipid panel (11/15/2024 2:56 PM CDT) [...] on 2017. Triglycerides 91 <=149 mg/dL [facility] Comment: Interpretive Data Ages < or = [...] on 2017. HDL 64 >=40 mg/dL [facility] Comment: Interpretive Data Ages < or = [...] 2017. LDL, calculated 68 <=129 mg/dL [facility] Comment: Interpretive Data Ages < or = [...] NCEP Expert Panel. Circulation 2004;110:227 3. [place] sAher et al. JONATHAN Cardiol. 2019August 17;5(5):540-548. doi: 10.1001/jamacardio.2020.0013 Current Interpretive Data was last revised on 2023. Non-HDL Cholesterol 85 mg/dL [facility] Comment: Interpretive Data Ages < or [...] last revised on 2017. Chol/HDL ratio 2 [facility] Blood 11/15/2024 2:56 PM CDT 11/15/2024 3:11 PM CDT Melania Gavin MD LAB BLOOD ORD ERABLES Final Result [facility] Department [place] [address] * Comprehensive metabolic panel (11/15/2024 2:56 PM CDT) Sodium 141 135 - 145 mmol/L Potassium, pl 4.7 3.3 - 4.9 mmol/L [facility] Chloride 108 97 - 110 mmol/L [facility] CO2 28 22 - 32 mmol/L [facility] Anion gap 5 2 - 15 mmol/L [facility] BUN 21 6 - 25 mg/dL [facility] Creatinine 0.94 0.80 - 1.30 mg/dL [facility] Glucose 92 70 - 199 mg/dL [facility] Comment: Interpretive Data Fasting glucose >/= [...] 2022. Calcium 9.4 8.5 - 10.3 mg/dL [facility] Bilirubin, total 0.5 0.1 - 1.2 mg/dL [facility] Protein, pl 6.6 6.5 - 8.5 g/dL [facility] Albumin 4.4 3.5 - 5.0 g/dL [facility] Alk phos 63 40 - 130 Units/L [facility] ALT 33 7 - 55 Units/L [facility] AST 35 10 - 50 Units/L [facility] Blood 11/15/2024 2:56 PM CDT 11/15/2024 3:11 PM CDT us Melania Gavin MD LAB BLOOD ORD ERABLES Final Result [facility] Department [place] [address] * (ABNORMAL) CBC with auto differential (11/15/2024 2:56 PM CDT) [facility] WBC 5.44 3.80 - 9.90 K/cumm Hgb 12.8(L) 13.0 - 17.5 g/dL [facility] Hct 37.8(L) 38.9 - 50.3 % [facility] Plt 105(L) 150 - 400 K/cumm [facility] MPV 11.0 9.1 - 12.3 fL [facility] RBC 4.13(L) 4.30 - 5.80 M/cumm [facility] MCV 91.5 81.3 - 96.4 fL [facility] MCH 31.0 27.1 - 33.3 pg [facility] MCHC 33.9 32.3 - 35.7 g/dL [facility] RDW CV 12.8 11.1 - 14.9 % [facility] RDW SD 42.5 35.7 - 48.1 fL [facility] NRBC abs 0.00 0.00 - 0.01 K/cumm [facility] Blood 11/15/2024 2:56 PM CDT 11/15/2024 3:11 PM CDT us oTshia Sun MD LAB BLOOD ORDERABLES Final Result [facility] Department [place] [address] documented in this encounter Visit Diagnoses Diagnosis Thrombocytopenia (HCC) Unspecified thrombocytopenia Routine general medical examination at a health care facility Need for hepatitis B screening test documented in this encounter Care Teams Launch Manager Relationship Specialty Start Date End Date Melania Gavin MD PCP - General Internal Medicine 12/13/20 documented as of this encounter
== END 2024-11-16 19:37 | disposition home or self-care (01) ==
PROVIDERS: Emergency Provider Physician Assistant; PCP Internal Medicine
DX: S09.90XA Unspecified injury of head, initial encounter (principal); S16.1XXA Strain of muscle, fascia and tendon at neck level, initial encounter; I48.91 Unspecified atrial fibrillation; I10 Essential (primary) hypertension; E78.00 Pure hypercholesterolemia, unspecified; J45.909 Unspecified asthma, uncomplicated; D64.9 Anemia, unspecified; N40.0 Benign prostatic hyperplasia without lower urinary tract symptoms; K21.9 Gastro-esophageal reflux disease without esophagitis; G25.81 Restless legs syndrome; G47.33 Obstructive sleep apnea (adult) (pediatric); M19.90 Unspecified osteoarthritis, unspecified site; F41.9 Anxiety disorder, unspecified; Z98.1 Arthrodesis status; Z79.899 Other long term (current) drug therapy; Z79.82 Long term (current) use of aspirin; W22.8XXA Striking against or struck by other objects, initial encounter
CPT/HCPCS: 70450; 72125; 99284

== ENCOUNTER 2025-01-03 14:29 | Outpatient (CLI) | payer MEDICARE, SELFPAY ==
[2025-01-03 14:55] LABS: Hematocrit 39.2 % (42.0-52.0); Hemoglobin 13.0 g/dL (14.0-18.0); Immature Granulocyte Percent A 0.2 % (0-0.5); Immature Platelet Fraction Pct 5.0 % (0.9-11.2); Lymphocytes Absolute Auto 0.76 K/mm3 (0.9-3.2); Mean Corpuscular HGB Conc 33.2 g/dl (32-36); Mean Corpuscular Hemoglobin 31.3 pg (26-34); Mean Corpuscular Volume 94.2 fl (80-100); Nucleated Red Blood Cells Absolute Auto 0.000 K/mm3 (0.0-0.012); Nucleated Red Blood Cells Perc 0.0 % (0.0-0.2); Platelet Count Result 104 k/mm3 (150-375); Red Blood Count 4.16 M/mm3 (4.6-6.20); White Blood Count 4.6 K/mm3 (4.5-10.0)
--- OUTSIDE RECORDS SUMMARY | 2025-01-03 15:07 | XMS_ITS | Clinical Summary ---
Author Organization [facility] Address [address] [address] Care Team Providers Care Care Consultant Name Role Phone Melania Gavin MD Primary Care Provider Allergies No known active allergies Medications cholecalciferol (VITAMIN D-3) 5,000 unit tablet Take by mouth 3,000 units a day Active docusate sodium (COLACE) 100 mg capsuleIndicatio ns:constipation Take 3 capsules (300 mg total) by mouth daily Active multivit with minerals/lutein (MULTIVITAMIN 50 PLUS ORAL) Take 1 capsule by mouth. Active vit B comp no.9-ychnw-K-bio tin 1-60-300 mg-mg-mcg tabletIndication s:Vitamin Deficiency Prevention Take 1 tablet by mouth Active potassium gluconate 550 mg (90 mg) tablet 1 tablet (550 mg total) Active biotin 1 mg tablet Take 2.5 tablets (2,500 mcg total) by mouth daily Active pmbzpnjenkz-B5-I oswellia serr 1,500-400-100 mg-unit-mg tablet Take 1 tablet by mouth 2 (two) times a day. Active albuterol HFA (PROVENTIL HFA,VENTOLIN HFA,PROAIR HFA) 90 mcg/actuation inhaler as needed 03/19/20 19 Active magnesium oxide 500 mg capsule Take by mouth daily Active cyanocobalamin (Vitamin B-12) 1,000 mcg sublingual tablet Take 1 tablet (1,000 mcg total) by mouth daily 3,000 mg a day Active montelukast (SINGULAIR) 10 mg tablet Take 1 tablet (10 mg total) by mouth nightly at bedtime. 08/04/19 21 Active simethicone (MYLICON) 80 mg chewable tablet Take 1 tablet (80 mg total) by mouth 4 (four) times a day 10/16/19 23 Active calcium citrate 250 mg calcium tablet tablet Take 3 tablets (750 mg total) by mouth 2 (two) times a day 750 mg 2 times a day Active fluticasone propionate (FLONASE) 50 mcg/actuation nasal spray USE 1 SPRAY(S) IN EACH NOSTRIL TWICE DAILY 01/15/20 23 Active famotidine (PEPCID) 20 mg tablet Take 1 tablet (20 mg total) by mouth daily 30 tablet 11 06/09/19 25 Active gabapentin (NEURONTIN) 300 mg capsule Take 1 capsule (300 mg total) by mouth 4 (four) times a day 120 capsule 11 06/30/19 25 Active baclofen (LIORESAL) 10 mg tablet Take 1 tablet (10 mg total) by mouth 3 (three) times a day 270 tablet 06/30/19 25 Active ibuprofen (ADVIL,MOTRIN) 400 mg tablet Take 1 tablet (400 mg total) by mouth every 6 (six) hours as needed for pain 360 tablet 3 06/30/[address] (CYMBALTA) 30 mg capsule Take 1 capsule (30 mg total) by mouth 2 (two) times a day 200 capsule 1 07/18/19 25 Active aspirin 81 mg enteric coated tablet Take 1 tablet by mouth once daily 90 tablet 1 08/23/19 25 Active atorvastatin (LIPITOR) 40 mg tablet Take 1 tablet by mouth once daily 90 tablet 1 09/23/19 25 Active alendronate (FOSAMAX) 70 mg tabletIndication s:Osteoporosis, unspecified osteoporosis type, unspecified pathological fracture presence Take 1 tablet (70 mg total) by mouth every 7 days Take in the morning with a full glass of water, on an empty stomach, and do not take anything else by mouth or lie down for the next 30 min. 12 tablet 3 11/29/19 25 Active cetirizine (ZyrTEC) 10 mg tablet Take 0.5 tablets (5 mg total) by mouth daily 07/27/19 20 Active tolterodine LA (DETROL LA) 4 mg 24 hr capsule Take 1 capsule (4 mg total) by mouth daily 30 capsule 12/20/19 25 026 Active metoprolol XL (TOPROL-XL) 100 mg 24 hr tablet Take 1 tablet (100 mg total) by mouth daily 100 tablet 12/23/19 25 Active rOPINIRole (REQUIP) 0.5 mg tabletIndication s:Restless leg syndrome TAKE 1 TABLET BY MOUTH TWICE DAILY WITH SUPPER AND AT BEDTIME. YOU CAN ALSO TAKE AN EXTRA TABLET AT NIGHT IF NEEDED 210 tablet 3 01/02/20 25 Active tadalafiL (CIALIS) 5 mg tabletIndication s:BPH with obstruction/lowe r urinary tract symptoms,Enlarge d prostate Take 1 tablet (5 mg total) by mouth daily 30 tablet 01/04/20 25 Active tamsulosin (FLOMAX) 0.4 mg extended release capsuleIndicatio ns:BPH with obstruction/lowe r urinary tract symptoms Take 2 capsules (0.8 mg total) by mouth daily 60 capsule 01/04/20 25 Active tadalafiL (CIALIS) 5 mg tablet Take 1 tablet (5 mg total) by mouth daily 30 tablet 09/02/19 24 025 Discontinued(Re order) tamsulosin (FLOMAX) 0.4 mg extended release capsule Take 2 capsules (0.8 mg total) by mouth daily 60 capsule 09/02/19 24 025 Discontinued rOPINIRole (REQUIP) 0.5 mg tabletIndication s:Restless leg syndrome TAKE 1 TABLET BY MOUTH TWICE DAILY WITH SUPPER AND AT BEDTIME AND YOU CAN TAKE AN EXTRA 1 TAB AT NIGHT IF NEEDED 210 tablet 3 01/14/20 24 025 Discontinued metoprolol XL (TOPROL-XL) 100 mg 24 hr tablet Take 1 tablet (100 mg total) by mouth daily 100 tablet 1 06/20/19 25 025 Discontinued(Re order) tamsulosin (FLOMAX) 0.4 mg extended release capsule Take 2 capsules by mouth once daily 60 capsule 12/30/19 025 Discontinued Active Problems Patient Care Coordination No te Formatting of this note migh t be different from the original. Dr. Vides is at location [address] [place] [id number]. and . Problem Noted Date Diagnosed Date [...] HADS. No evidence of daytime drowsiness on [place] scale. Moderate evidence of REM Behavior Disorder [...] asleep (currently 60-90 minutes). This encounter's total ksnx-bu-plle time was 60 minutes. I spent more [...] disorder. Assessment & Plan (05/20/2024 6:19 PM WEBSPHERE PORTAL ARCHITECT): ASSESSMENT He has had RLS since 2018 [...] doses. Assessment & Plan (03/07/2022 4:27 PM WEBSPHERE PORTAL ARCHITECT): ASSESSMENT He has had RLS since 2018 [...] ropirole. Assessment & Plan (04/04/2021 6:09 PM WEBSPHERE PORTAL ARCHITECT): ASSESSMENT - 60 y.o. man with RLS [...] minutes to fall asleep. This encounter's total getk-cb-fdip time was greater than 30 minutes. I [...] Encounters Date Type Department Care Team Description 01/03/2025 Telephone [facility] Medicine Surgery [address] [place] [id number] Elder Melva 12/20/2024 Telephone [facility] Surgery [address] [place] [phone] Devika Luna RMA 12/19/2024 2:20 PM CDT Office Visit [facility] Surgery [address] [facility] [address] [place] [phone] Ruben Morrison MD BPH with obstruction/lower urinary tract symptoms (Primary Dx) 12/11/2024 4:30 PM CDT Lab [facility] ([facility]) [address] [place] [phone] Thrombocytopenia 12/11/2024 2:00 PM CDT - 12/11/2024 11:59 PM CDT Hospital Encounter [facility] [address] [place] [address] [facility] [address] [place] [address] Toshia Sun MD Postlaminectomy syndrome (Primary Dx); Chronic bilateral low back pain with bilateral sciatica; Intervertebral disc disorder with radiculopathy of lumbar region; Chronic right shoulder pain Discharge Disposition: Discharge to home or self care 12/06/2024 Orders Only [facility] [address] [place] [address] Advanced [facility] [address] [place] [address] Toshia Sun MD Thrombocytopenia (Primary Dx) 12/06/2024 Telephone [facility] [address] [place] [address] [facility] [address] [place] [address] Toshia Sun MD PMC Preprocedure 12/05/2024 Telephone [facility] [address] [place] [address] [facility] [address] [place] [address] Toshia Sun MD PMC Preprocedure 11/15/2024 4:00 PM CDT Lab [facility] ([facility]) [address] [place] [address] Thrombocytopenia (HCC); Routine general medical examination at a health care facility; Need for hepatitis B screening test 11/15/2024 Results Follow-Up [facility] Primary Care [address] [place] [address] [address] [place] [phone] Melania Gavin MD Comprehensive metabolic panel, Lipid panel, Hepatitis B core antibody, total Blood, Additional followed-up results: 3 11/13/2024 Orders Only [facility] [address] [address] Toshia Sun MD Thrombocytopenia (HCC) (Primary Dx); Postlaminectomy syndrome; Chronic bilateral low back pain with bilateral sciatica; Intervertebral disc disorder with radiculopathy of lumbar region 11/10/2024 Telephone [facility] the [address] [place] [address] Toshia Sun MD Scheduling Appointments 11/09/2024 12:00 PM CDT Office Visit [facility] [address] [place] [address] [address] [place] [address] Ruben Fang MD PhD Restless leg syndrome (Primary Dx) 10/31/2024 1:45 PM CDT Office Visit [facility] Primary Care [address] [place] [address] [address] [place] [phone] Melania Gavin MD Thrombocytopenia (HCC) (Primary Dx); Recurrent major depressive disorder, in partial remission; Chronic bilateral low back pain with bilateral sciatica; Chronic right shoulder pain; Routine general medical examination at a health care facility; Need for hepatitis B screening test 10/18/2024 Telephone [facility] [address] [place] [address] [address] [place] [address] Devika Luna RMA 10/14/2024 11:25 AM CDT Lab [facility] Lab [address] [place] [address] BPH with obstruction/lower urinary tract symptoms 10/11/[facility] [address] [place] [address] ElderMelva 10/11/2024 Orders Only [facility] [address] [facility] [address] [place] [phone] Ruben Morrison MD BPH with obstruction/lower urinary tract symptoms (Primary Dx) 10/11/[facility] [address] [place] [address] Carlie Franklin CMA 10/06/2024 Orders Only [facility] [address] [facility] [address] [place] [phone] Ruben Morrison MD 10/06/2024 Telephone [facility] Surgery [address] [place] [address] Amadeo Washington 10/05/2024 1:30 PM CDT Office Visit [facility] Cardiology [address] [facility] [address] [place] [phone] Ta Nolen MD PVC (premature ventricular contraction) (Primary Dx); Hyperlipidemia, unspecified hyperlipidemia type from Last 3 Months Immunizations Immunization Administration Dates Next Due COVID-19 mRNA (Recensus) 0.3 m L (30 mcg) vaccine (12 [...] 03/02/2024,12/29/2021 Surgical History Surgery Date Site/Laterality Comments NV ARTHRD ANT INTERBODY MIN DSC LUMBAR Lumbar Vertebral Fusion - (Added by TW Conv) NV TONSILLECTOMY PRIMARY/SECONDARY <AGE 12 Tonsillectomy - (Added by TW Conv) ANAL SPHINCTEROTOMY 04/19/1999 - 04/18/2000 TUMOR REMOVAL 04/19/1985 - 04/18/1986 right radial nerve, forearm SPINE SURGERY 06/19/1991 FLUORO GUIDED ASPIRATION OR INJECTION LARGE JOINT RIGHT 09/08/2024 Right LUMBAR SPINE SURGERY 06/19/1991 Medical History Medical History Date Comments Personal [...] ed by TW Conv) Chronic pain Arthritis 1989 Hypertension 1985 Obstructive sleep apnea Restless leg syndrome 2018 Pancytopenia Hyperlipidemia 2010 Low back pain Enlarged prostate Hemorrhoid PASTORA (obstructive sleep apnea) us ing CPAP Osteoporosis GERD (gastroesophageal reflux disease) 1998 Asthma 1995 Benign prostatic hyperplasia 2000 Heart disease 2018 Neuromuscular disorder 1989 Peptic ulceration 1987 Depression 2018 Head injury 12/2015 Peripheral neuropathy 1990 Memory loss 2022 Anxiety 2018 Family History Medical History Relation Name Comments Arthritis Father Eusebio Coronary artery disease Father Eusebio Heart attack Father Eusebio Heart disease Father Eusebio Hypertension Father Eusebio Sudden Cardiac Father Eusebio Cancer Father's Brother ann Cancer Father's Sister mikhail Clotting disorder Maternal Grandmother Dante Diabetes Maternal Grandmother Dante Heart disease Maternal Grandmother Dante Hyperlipidemia Maternal Grandmother Dante Hypertension Maternal Grandmother Dante Obesity Maternal Grandmother Dante Stroke Maternal Grandmother Dante Anemia Mother Bailey Anxiety disorder Mother Bailey Arthritis Mother Bailey Clotting disorder Mother Bailey Deep vein thrombosis Mother Bailey Dementia Mother Bailey Depression Mother Bailey Essential Tremor Mother Bailey Hyperlipidemia Mother Bailey Hypertension Mother Bailey Insomnia Mother Bailey Memory loss Mother Bailey Mental illness Mother Bailey Neuropathy Mother Bailey Parkinsonism Mother Bailey Restless legs syndrome Mother Bailey Stroke Mother Bailey Thyroid disease Mother Bailey Deep vein thrombosis Mother's Sister Estelita Diabetes Mother's Sister Estelita Heart disease Mother's [...] by TW Conv) Cancer Paternal Grandfather ann Anxiety disorder Sister 1 Maegan Asthma Sister 1 Maegan Bipolar disorder Sister 1 Maegan Clotting disorder Sister 1 Maegan Coronary artery disease Sister 1 Maegan Deep vein thrombosis Sister 1 Maegan Depression Sister 1 Maegan Diabetes Sister 1 Maegan Heart disease Sister 1 Maegan Heart failure Sister 1 Maegan Hyperlipidemia Sister 1 Maegan Hypertension Sister 1 Maegan Lung disease Sister 1 Maegan Mental illness Sister 1 Maegan Obesity Sister 1 Maegan Anxiety disorder Sister 2 Anyi Arthritis Sister 2 Anyi Asthma Sister 2 Anyi COPD Sister 2 Anyi Clotting disorder Sister 2 Anyi Deep vein thrombosis Sister 2 Anyi Depression Sister 2 Anyi Heart disease Sister 2 Anyi Hypertension Sister 2 Anyi Neuropathy Sister 2 Anyi Relation Name Status Comments [...] on file Legal Sex Male 12:11 AM WEBSPHERE PORTAL ARCHITECT Gender Identity Male 12/03/2019 11:44 PM CDT Sexual Orientation Not on file Occupation Industry Job Start Date Job End Date disabled Not on file Not on file Not on file Obstetrics History Last Filed Vital Signs Vital Sign Reading Time Taken Comments Blood Pressure 145/91 12/11/2024 4:02 PM CDT Pulse 51 12/11/2024 4:02 PM CDT Temperature 36.3 C (97.3 F) 12/11/2024 2:26 PM CDT Respiratory Rate 16 12/11/2024 4:02 PM CDT Oxygen Saturation 99% 12/11/2024 4:02 PM CDT Inhaled Oxygen Concentration - - Weight 93 kg (205 lb) 12/19/2024 2:29 PM CDT Height 180.3 cm (5' 11) 12/19/2024 2:29 PM CDT Body Mass Index 28.59 12/19/2024 2:29 PM CDT Plan of Treatment Health Maintenance Due Date Last Done Comments Hepatitis C Screening 1960 DTaP/Tdap/Td Vaccine (1 - Tdap) 10/22/1970 Pneumococcal vaccine 65+ (1 of 2 - PCV) 10/22/1978 Zoster Vaccine (1 of 2) 10/22/2009 Covid-19 Vaccine (7 - 2024-2 6 season) 2024 03/02/2024, 08/31/2023, 12/29/2021, Additional history [...] Chronic Pain Care Plan Chronic Care Management Worsening( 2:29 PM CDT) No Apurva Martinez, RN Note: Problem: Chronic Pain Goals: 1. Minimize further functional decline 2. Maximize quality of life 3. 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 Device Identifier Shelf Expiration Date Model / Serial / Lot Screws And Rods N/A: Back Procedures Procedure Name Priority Date/Time Associated Diagnosis Comments MEASURE POST VOID RESIDUAL Routine 12/19/2024 2:37 PM CDT BPH with obstruction/lower urinary tract symptoms PAIN MGMT IMAGING LUMBAR/CAUDAL EPIDURAL STEROID INJ Schedule Routine, Read Routine (OP Routine) 12/11/2024 3:54 PM CDT Postlaminectomy syndrome 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 care facility COMPREHENSIVE METABOLIC PANEL Routine [...] 2:33 PM CDT Hyperlipidemia, unspecified hyperlipidemia type PSA DIAGNOSTIC Routine 08/30/2024 1:46 PM CDT Elevated PSA HM COLONOSCOPY Routine 07/08/2022 from Last 3 Months or Most Recently Relevant to Health Maintenance Results * Measure post void residual (12/19/2024 2:37 PM CDT) Venessa Rosado, HIRAM - 12/19/2024 2:37 PM CDT Measurement of Post Void Residual urine and/or bladder capacity PVR = 16 ml Ruben Morrison MD NURSING ASSESSMENTS Final Result * Imaging Lumbar/Caudal Epidural Steroid INJ (19410) (12/11/2024 3:54 PM CDT) Narrative [facility] - 12/11/2024 3:55 PM CDT The images from this study are not interpreted by Radiology. Please refer to the physician's procedure / OR operative note. us Toshia Sun MD IMG PAIN MGMT PROCEDURES F inal Result [facility] * (ABNORMAL) Differential, auto (12/11/2024 1:38 PM CDT) Neutrophil abs 3.96 1.50 - 6.50 K/cumm Imm gran abs 0.03 0.00 - 0.10 K/cumm [facility] Lymphocyte abs 0.77(L) 0.80 - 3.30 K/cumm [facility] Monocyte abs 0.61 0.20 - 0.80 K/cumm [facility] Eosinophil abs 0.15 0.00 - 0.50 K/cumm [facility] Basophil abs 0.03 0.00 - 0.10 K/cumm [facility] Neutrophil pct 71.4 % [facility] Comment: Interpretive Data Percent cell count reference ranges are not reported, since discordance with absolute values may lead to misinterpretation of CBC data. Current Interpretive Data was last revised on 2017. Imm gran pct 0.5 % [facility] Comment: Interpretive Data Percent cell count reference ranges are not reported, since discordance with absolute values may lead to misinterpretation of CBC data. Current Interpretive Data was last revised on 2017. Lymphocyte pct 13.9 % [facility] Comment: Interpretive Data Percent cell count reference ranges are not reported, since discordance with absolute values may lead to misinterpretation of CBC data. Current Interpretive Data was last revised on 2017. Monocyte pct 11.0 % [facility] Comment: Interpretive Data Percent cell count reference ranges are not reported, since discordance with absolute values may lead to misinterpretation of CBC data. Current Interpretive Data was last revised on 2017. Eosinophil pct 2.7 % [facility] Comment: Interpretive Data Percent cell count reference ranges are not reported, since discordance with absolute values may lead to misinterpretation of CBC data. Current Interpretive Data was last revised on 2017. Basophil pct 0.5 % [facility] Comment: Interpretive Data Percent cell count reference ranges are not reported, since discordance with absolute values may lead to misinterpretation of CBC data. Current Interpretive Data was last revised on 2017. Blood 12/11/2024 1:38 PM CDT 12/11/2024 2:15 PM CDT us Toshia Sun MD LAB BLOOD ORDERABLES Final Result [facility] Department [place] [address] * (ABNORMAL) CBC with auto differential (12/11/2024 1:38 PM CDT) WBC 5.55 3.80 - 9.90 K/cumm Hgb 13.2 13.0 - 17.5 g/dL [facility] Hct 39.9 38.9 - 50.3 % [facility] Plt 102(L) 150 - 400 K/cumm [facility] MPV 10.9 9.1 - 12.3 fL [facility] RBC 4.33 4.30 - 5.80 M/cumm [facility] MCV 92.1 81.3 - 96.4 fL [facility] MCH 30.5 27.1 - 33.3 pg [facility] MCHC 33.1 32.3 - 35.7 g/dL [facility] RDW CV 12.9 11.1 - 14.9 % [facility] RDW SD 43.6 35.7 - 48.1 fL [facility] NRBC abs 0.00 0.00 - 0.01 K/cumm [facility] Blood 12/11/2024 1:38 PM CDT 12/11/2024 2:15 PM CDT us Toshia Sun MD LAB BLOOD ORDERABLES Final [facility] [place] [address] * eGFR (11/15/2024 2:56 PM CDT) eGFR [...] LAB BLOOD ORD ERABLES Final Result [facility] [place] [address] * Differential, auto (11/15/2024 2:56 PM CDT) Pathologist [facility] Neutrophil abs 3.82 1.50 - 6.50 K/cumm Imm gran abs 0.01 0.00 - 0.10 K/cumm [facility] Lymphocyte abs 0.85 0.80 - 3.30 K/cumm [facility] Monocyte abs 0.56 0.20 - 0.80 K/cumm [facility] Eosinophil abs 0.17 0.00 - 0.50 K/cumm [facility] Basophil abs 0.03 0.00 - 0.10 K/cumm [facility] Neutrophil pct 70.2 % [facility] Comment: Interpretive Data Percent cell count reference ranges are not reported, since discordance with absolute values may lead to misinterpretation of CBC data. Current Interpretive Data was last revised on 2017. Imm gran pct 0.2 % [facility] Comment: Interpretive Data Percent cell count reference ranges are not reported, since discordance with absolute values may lead to misinterpretation of CBC data. Current Interpretive Data was last revised on 2017. Lymphocyte pct 15.6 % [facility] Comment: Interpretive Data Percent cell count reference ranges are not reported, since discordance with absolute values may lead to misinterpretation of CBC data. Current Interpretive Data was last revised on 2017. Monocyte pct 10.3 % [facility] Comment: Interpretive Data Percent cell count reference ranges are not reported, since discordance with absolute values may lead to misinterpretation of CBC data. Current Interpretive Data was last revised on 2017. Eosinophil pct 3.1 % [facility] Comment: Interpretive Data Percent cell count reference ranges are not reported, since discordance with absolute values may lead to misinterpretation of CBC data. Current Interpretive Data was last revised on 2017. Basophil pct 0.6 % [facility] Comment: Interpretive Data Percent cell count reference ranges are not reported, since discordance with absolute values may lead to misinterpretation of CBC data. Current Interpretive Data was last revised on 2017. Blood 11/15/2024 2:56 PM CDT 11/15/2024 3:11 PM CDT us Toshia Sun MD LAB BLOOD ORDERABLES Final Result [facility] Department [place] [address] * (ABNORMAL) CBC with auto differential (11/15/2024 2:56 PM CDT) WBC 5.44 3.80 - 9.90 K/cumm Hgb 12.8(L) 13.0 - 17.5 g/dL [facility] Hct 37.8(L) 38.9 - 50.3 % [facility] Plt 105(L) 150 - 400 K/cumm [facility] MPV 11.0 9.1 - 12.3 fL [facility] RBC 4.13(L) 4.30 - 5.80 M/cumm [facility] MCV 91.5 81.3 - 96.4 fL [facility] MCH 31.0 27.1 - 33.3 pg [facility] MCHC 33.9 32.3 - 35.7 g/dL [facility] RDW CV 12.8 11.1 - 14.9 % [facility] RDW SD 42.5 35.7 - 48.1 fL [facility] NRBC abs 0.00 0.00 - 0.01 K/cumm [facility] Blood 11/15/2024 2:56 PM CDT 11/15/2024 3:11 PM CDT us Toshia Sun MD LAB BLOOD ORDERABLES Final Result [facility] Department [place] [employer] [place] [address] * Hepatitis B core antibody, total Blood (11/15/2024 2:56 PM CDT) Pathologist [facility] Hep B core IgG/IgM Nonreactive Nonreactive Blood 11/15/2024 2:5 6 PM CDT 11/15/2024 3:11 PM CDT us Melania Gavin MD LAB M ICROBIOLOGY - GENERAL ORDERABLES Final Result [facility] Department [place] [address] * Hepatitis B surface antibody (immune status) Blood (11/15/2024 2:56 PM CDT) HBsAb (immune status) Nonreactive Comment:This result is consi stent with a lack of immunity to Hepatitis B Virus when used in the setting of routine screening. Current interpretative data was last revised on 21 Blood 11/15/2024 2:56 PM CDT 11/15/2024 3:11 PM CDT Melania Gavin MD LAB M ICROBIOLOGY - GENERAL ORDERABLES Final Result Performing Organization Address City/State/[facility] Co de Phone Number [facility] Department [place] [address] * Hepatitis B Surface Antigen Blood (11/15/2024 2:56 PM CDT) Pathologist [facility] HepBsAg Nonreactive Nonreactive Blood 11/15/2024 2:56 PM CDT 11/15/2024 3:11 PM CDT us Melania Gavin MD LAB [facility]AL [facility]AB[facility] Final Result Performing Organization Address City/[facility] Co de Phone Number [facility] Department [place] [address] * Lipid panel (11/15/2024 2:56 PM CDT) Pathologist [facility] Cholesterol 149 30 - 199 mg/dL Comment: [...] on 2017. Triglycerides 91 <=149 mg/dL [facility] Comment: Interpretive Data Ages < or [...] revised on 2017. HDL 64 >=40 mg/dL [facility] Comment: Interpretive Data Ages < or = [...] on 2017. LDL, calculated 68 <=129 mg/dL [facility] Comment: Interpretive Data Ages < or = [...] NCEP Expert Panel. Circulation 2004;110:227 3. Destin Riley al. JONATHAN Cardiol. 2020 August 17;5(5):540-548. doi: 10.1001/jamacardio.2020.0013 Current Interpretive Data was last revised on 2023. Non-HDL Cholesterol 85 mg/dL [facility] Comment: Interpretive Data Ages < or = [...] last revised on 2017. Chol/HDL ratio 2 [facility] Blood 11/15/2024 2:56 PM CDT 11/15/2024 3:11 PM CDT Melania Gavin MD LAB BLOOD ORD ERABLES Final Result [facility] Department [place] [address] * Comprehensive metabolic panel (11/15/2024 2:56 PM CDT) Sodium 141 135 - 145 mmol/L Potassium, pl 4.7 3.3 - 4.9 mmol/L [facility] Chloride 108 97 - 110 mmol/L [facility] CO2 28 22 - 32 mmol/L [facility] Anion gap 5 2 - 15 mmol/L [facility] BUN 21 6 - 25 mg/dL [facility] Creatinine 0.94 0.80 - 1.30 mg/dL [facility] Glucose 92 70 - 199 mg/dL [facility] Comment: Interpretive Data Fasting glucose >/= 126 [...] 2022. Calcium 9.4 8.5 - 10.3 mg/dL [facility] Bilirubin, total 0.5 0.1 - 1.2 mg/dL [facility] Protein, pl 6.6 6.5 - 8.5 g/dL [facility] Albumin 4.4 3.5 - 5.0 g/dL [facility] Alk phos 63 40 - 130 Units/L [facility] ALT 33 7 - 55 Units/L [facility] AST 35 10 - 50 Units/L [facility] Blood 11/15/2024 2:56 PM CDT 11/15/2024 3:11 PM CDT us Melania Gavin MD LAB BLOOD ORD ERABLES Final Result [facility] Department [place] [address] * Urine culture Urine, bladder (10/14/2024 11:36 AM CDT) Report Final Report: No growth Comment:Testing performed by : [facility], [address] [facility] [address], [place]., [address] Urine, bladder 10/14/2024 11 :36 AM CDT 10/14/2024 7:24 PM CDT Narrative [facility] - 10/15/2024 8:08 PM CDT Testing performed by [facility] ([phone]) us Ruben Morrison MD LAB MICROBIOLOGY - GENERAL ORDER TYRONE Final Result [facility] [address] [facility] Department [place] [address] * POCT lipid panel (10/05/2024 2:33 PM CDT) HDL, POC 65 >=40 mg/dL Triglycerides, POC 78 <=149 mg/dL LDL Cholesterol POC 51 <=129 mg/dL Chol/HDL Ratio, POC 2.0 NONE Non-HDL Cholesterol, POC 67 NONE mg/dL Cholesterol Total, POC 132 30 - 199 mg/dL Capillary blood 10/05/2024 2 :33 PM CDT Ta Nolen MD POINT OF CARE TEST ORDERA BLES Final Result * PSA diagnostic (08/30/2024 1:46 [...] PM CDT 08/30/2024 2:25 PM CDT Ruben oMrrison MD LAB BLOOD ORDERABLES Final Resul t [facility] Department [place] [address] * COLONOSCOPY (07/08/2022) Scribed Colonoscopy Normal Historical Provider HEALTH MAINTENANCE Final Result from Last 3 Months or Most Recently Relevant to Health Maintenance Insurance MEDICARE BLUE CROSS MEDICARE SUPPLEMENT MEDICARE [facility] MEDICARE [facility] MEDICARE SUPPLEMENT Care Teams Care Consultant Relationship Specialty Start Date End Date Melania Gavin MD PCP - General Internal Medicine 12/13/20
--- OUTSIDE RECORDS SUMMARY | 2025-01-03 15:07 | XMS_ITS | Encounter Summary ---
Author Organization [facility] Address [address] [place] [address] Care Team Providers Care Academic Program Specialist Name Role Phone Melania Gavin MD Primary Care Provider Encounter Details Date Type Department Care Team (Late Contact Info) Description 01/02/2025 External Device Data [facility] ABSTRACTION Provider, Abstract NO ADDRESS ON FILE Social History Tobacco Use Types Packs/Day Years Used Date Smoking Tobacco: Never Smokeless Tobacco: Never Alcohol Use Standard Drinks/Week Comments Yes 1 (1 standard drink = 0.6 oz pur e alcohol) occass Sex and Gender Information Value Date Recorded Sex Assigned at Not on file Legal Sex Male 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 Gender Identity Not on file Sexual Orientation Not on file Occupation Industry Job Start Date Job End Date Not on file Not on file Not on file Not on file documented as of this encounter Plan of Treatment Upcoming Encounters Date Type Department Care Team (Late Contact Info) Description 01/04/2025 2:15 PM CDT Office Visit [facility] Oncology and Hematology - Vick [address] [facility] [address] [place] [address] Vijay Dumont MD [address] [facility] [address] [place] [address] documented as of this encounter Visit Diagnoses Not on filedocumented in this encounter Care Teams Academic Program Specialist Relationship Specialty Start Date End Date Melania Gavin MD [address] [place] [id number] PCP - General Internal Medicine 04/03/21 documented as of this encounter
--- OUTSIDE RECORDS SUMMARY | 2025-01-03 15:07 | XMS_ITS | Encounter Summary ---
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 Minimize further functional decline 2. Maximize quality of life 3. Control pain Strategies: - Activity/exercise program recommendation - Conservative stepwise pain medicine strategy with multi-disciplinary approach - Recommend healthy lifestyle strategies and compensatory methods as needed documented as of this encounter Visit Diagnoses Not on filedocumented in this encounter Care Teams Green Feed Attendant Relationship Specialty Start Date End Date Melania Gavin MD PCP - General Internal Medicine 12/13/20 documented as of this encounter
--- OUTSIDE RECORDS SUMMARY | 2025-01-03 15:07 | XMS_ITS | Encounter Summary ---
Author Organization [facility] Address [address] [place] [address] Phone Care Team Providers Care Geodetic Technician Name Role Phone Melania Gavin MD Primary Care Provider Naya Monson MA Unavailable Encounter Details Date Type Department Care Team (Latest Contact Info) Description 06/04/2017 Orders Only [facility] Scanning, Provider Social History Tobacco Use Types Packs/Day Years Used Date Smoking Tobacco: Never Sex and Gender Information Value Date Recorded Sex Assigned at Not on file Legal Sex Male 12:11 AM INSTITUTIONAL COMMODITY ANALYST Gender Identity Male 12/03/2019 11:44 PM [...] COVID: Suspected 06/09/2024 06/09/2024 06/09/2024 2:18 PM INSTITUTIONAL COMMODITY ANALYST documented as of this encounter Care Teams Geodetic Technician Relationship Specialty Start Date End Date Melania Gavin MD PCP - General Internal Medicine 12/13/20 Naya Monson MA [address] [facility] [address] [place] [address] ACO Care Lift Manager 11/18/22 11/19/22 documented as of this encounter
--- OUTSIDE RECORDS SUMMARY | 2025-01-03 15:07 | XMS_ITS | Encounter Summary ---
Author Organization [facility] Address [address] [place] [address] Phone Care Team Providers Care Die Repairer Trimmer Dies Name Role Phone Melania Gavin MD Primary Care Provider Naya Monson MA Unavailable [phone] Encounter Details Date Type Department Care Team (Latest Contact Info) Description 05/28/2017 Orders Only [facility] Scanning, Provider Social History Tobacco Use Types Packs/Day Years Used Date Smoking Tobacco: Never Sex and Gender Information Value Date Recorded Sex Assigned at Not on file 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
--- OUTSIDE RECORDS SUMMARY | 2025-01-03 15:07 | XMS_ITS | Encounter Summary ---
Author Organization [facility] Address [address] [place] [address] Phone Care Team Providers Care Sheriff'S Sergeant Name Role Phone Melania Gavin MD Primary Care Provider Naya Monson MA Unavailable [phone] Encounter Details Date Type Department Care Team (Latest Contact Info) Description 06/14/2017 Orders Only [facility] Scanning, Provider Social History Tobacco Use Types Packs/Day Years Used Date Smoking Tobacco: Never Sex and Gender Information Value Date Recorded Sex Assigned at Not on file Legal Sex Male 12:11 AM MEDICAL DOSIMETRIST Gender Identity Male 12/03/2019 11:44 PM CDT [...] COVID: Suspected 06/09/2024 06/09/2024 06/09/2024 2:18 PM MEDICAL DOSIMETRIST documented as of this encounter Care Teams Sheriff'S Sergeant Relationship Specialty Start Date End Date Melania Gavin MD PCP - General Internal Medicine 12/13/20 aNya Monson MA [address] [place] [address] [address] [place] [address] ACO Care Lead Pony Rider 11/18/22 11/19/22 documented as of this encounter
--- OUTSIDE RECORDS SUMMARY | 2025-01-03 15:07 | XMS_ITS | Encounter Summary ---
Author Organization [facility] Address [address] [place] [address] Phone Care Team Providers Care Derrick Follower Name Role Phone Melania Gavin MD Primary Care Provider Naya Monson MA Unavailable [phone] Encounter Details Date Type Department Care Team (Latest Contact Info) Description 09/07/2017 Orders Only [facility] Scanning, Provider Social History Tobacco Use Types Packs/Day Years Used Date Smoking Tobacco: Never Sex and Gender Information Value Date Recorded Sex Assigned at Not on file Legal Sex Male 12:11 AM GLOBAL ACCOUNT DIRECTOR Gender Identity Male 12/03/2019 11:44 PM CDT [...] COVID: Suspected 06/09/2024 06/09/2024 06/09/2024 2:18 PM GLOBAL ACCOUNT DIRECTOR documented as of this encounter Care Teams Derrick Follower Relationship Specialty Start Date End Date Melania Gavin MD PCP - General Internal Medicine 12/13/20 Naya Monson MA [address] [place] [address] [address] [place] [address] ACO Care Concession Manager 11/18/22 11/19/22 documented as of this encounter
--- OUTSIDE RECORDS SUMMARY | 2025-01-03 15:07 | XMS_ITS | Clinical Summary ---
Author Organization [facility] Address [address] [place] [address] Care Team Providers Care Desk Maker Name Role Phone Melania Gavin MD Primary [...] 11 8 Active fluticasone (FLONASE) 50 mcg/spray [place], Suspension 8 Active potassium gluconate 550 mg (90 mg) Tablet 550 mg. Activ e [id number] swellia serr 1,500-400-100 mg-unit-mg Tablet Take 1 [...] Encounters Date Type Department Care Team Description 01/02/2025 External Device Data [facility] ABSTRACTION [...] on file Legal Sex Male 4:03 AM DIRECT MARKETING ANALYST Gender Identity Not on file Sexual Orientation [...] Description 01/04/2025 2:15 PM CDT Office Visit [facility] Oncology and Hematology - Vick [address] [facility] [address] [place] [address] Vijay Dumont MD [address] [facility] [address] [place] [address] Health Maintenance Due Date Last Done Comments Pre-Diabetes and Diabetes Screening 1960 DTAP/TDAP/TD VACCINES (1 - Tdap) 10/22/1978 PNEUMOCOCCAL VACCINE 50+ YEA RS (1 of 2 - PCV) 10/22/1978 Traditional Medicare (ACO) A nnual Wellness Visit 10/22/1978 FIT-DNA Q 3 years 10/22/2004 FIT/FOBT Q 1 year 10/22/2004 Flex Sig/CT Colonography Q 5 years 10/22/2004 ZOSTER VACCINE (1 of 2) 10/22/2009 RSV VACCINE (60+ or ) (1 - Risk 60-74 years 1-dose series) 2019 INFLUENZA VACCINE (#1) 2024 2, 02/07/2020, 02/07/2020, Additional history exists COVID-19 Vaccine (2024-2 6 season) 2024 08/31/2023, 12/29/2021, 01/19/2021, Additional history exists COLORECTAL SCREENING 07/08/2032 07/08/2022, 01/26/2018, 01/26/2018, Additional history exists Colorectal Cancer Screening 07/08/2032 Procedures Procedure Name Priority Date/Time Associated Diagnosis Comments COLONOSCOPY REPORT 01/26/2018 10 :55 AM CDT from Last 3 Months or Most Recently Relevant to Health Maintenance Results * COLONOSCOPY REPORT (01/26/2018 10:55 AM CDT) Narrative Procedure Note Gerardo Kumar MD - 01/26/2018 10:55 AM CDT [facility] Endoscopy Patient Name: Qian Rubio Procedure [...] for surveillance. Procedure Code(s): --- Professional --- 98586, Colonoscopy, flexible; diagnostic, including collection of specimen(s) by brushing or washing, when performed (separate procedure) CPT copyright 2016 [employer]. All rights reserved. The codes documented in this report are preliminary and upon tinter photograph review may be revised to meet current compliance requirements. Gerardo Kumar MD 01/26/2018 10:54:54 AM This report has been signed electronically. Number of Addenda: [phone] [id number] [place] [address] Gerardo Kumar MD GI PROCEDURE ORDERABLES Final Result from Last 3 Months or Most Recently Relevant to Health Maintenance Insurance * Guarantor: Qian Rubio Jr. Account Type Relation to Patient Date of Phone Billing Address Personal/Family Self 1960 [address] [place] [address] MEDICARE PART A AND B MEDICARE PART A AND B Care Teams Desk Maker Relationship Specialty Start Date End Date Melania Gavin MD [address] [place] [address] PCP - General Internal Medicine 04/03/21
--- OUTSIDE RECORDS SUMMARY | 2025-01-03 15:07 | XMS_ITS | Encounter Summary ---
Author Organization [facility] Healthcare Address [address] [place] [address] Care Team Providers Care Railroad Car Loader Name Role Phone Melania Gavin MD Primary Care Provider ErmiasNaya MA Unavailable [phone] Encounter Details Date Type Department Care Team (Late st Contact Info) Description 04/30/2022 Telephone [facility] [address] [facility] [address] [place], [place] [id number] Toshia Sun MD [address] [facility] [id number] [place], [place] [id number] Social History Tobacco Use Types Packs/Day Years [...] on file Legal Sex Male 12:11 AM SURGEON'S ASSISTANT Gender Identity Male 12/03/2019 11:44 PM CDT [...] COVID: Suspected 06/09/2024 06/09/2024 06/09/2024 2:18 PM SURGEON'S ASSISTANT documented as of this encounter Care Teams Railroad Car Loader Relationship Specialty Start Date End Date Melania Gavin MD PCP - General Internal Medicine 12/13/20 Naya Monson, GEOFFREY [address] [place] [address] [address] [place] [address] ACO Care Snow Removing Supervisor 11/18/22 11/19/22 documented as of this encounter
--- OUTSIDE RECORDS SUMMARY | 2025-01-03 15:07 | XMS_ITS | Encounter Summary ---
Author Organization [facility] Address [address] [place] [address] Phone Care Team Providers Care Intake Man Name Role Phone Melania Gavin MD Primary Care Provider Naya Monson MA Unavailable [phone] Encounter Details Date Type Department Care [...] on file Legal Sex Male 12:11 AM BIOFUELS PLANT SUPERINTENDENT Gender Identity Male 12/03/2019 11:44 PM CDT [...] COVID: Suspected 06/09/2024 06/09/2024 06/09/2024 2:18 PM BIOFUELS PLANT SUPERINTENDENT documented as of this encounter Care Teams Intake Man Relationship Specialty Start Date End Date Melania Gavin MD PCP - General Internal Medicine 12/13/20 Naya Monson MA [address] [place] [address] [address] [place] [address] ACO Care Electrical Hardware Engineer 11/18/22 11/19/22 documented as of this encounter
--- OUTSIDE RECORDS SUMMARY | 2025-01-03 15:07 | XMS_ITS | Encounter Summary ---
Author Organization [facility] Address [address] [place] [address] Phone Care Team Providers Care Soil Fertility Specialist Name Role Phone Melania Gavin MD Primary Care Provider Naya Monson MA Unavailable Encounter Details Date Type Department Care Team (Latest Contact Info) Description 09/02/2017 Orders Only [facility] Scanning, Provider Social History Tobacco Use Types Packs/Day Years Used Date Smoking Tobacco: Never Sex and Gender Information Value Date Recorded Sex Assigned at Not on file Legal Sex Male 12:11 AM HAND RIGGER Gender Identity Male 12/03/2019 11:44 PM CDT [...] COVID: Suspected 06/09/2024 06/09/2024 06/09/2024 2:18 PM HAND RIGGER documented as of this encounter Care Teams Soil Fertility Specialist Relationship Specialty Start Date End Date Melania Gavin MD PCP - General Internal Medicine 12/13/20 Naya Monson MA [address] [place] [address] [address] [place] [address] ACO Care Transfer Station Attendant 11/18/22 11/19/22 documented as of this encounter
--- OUTSIDE RECORDS SUMMARY | 2025-01-03 15:07 | XMS_ITS | Encounter Summary ---
Author Organization [facility] Address [address] [place] [address] Phone Care Team Providers Care Ware Server Name Role Phone Melania Gavin MD Primary Care Provider Encounter Details Date Type Department Care Team (Late st Contact Info) Description 01/03/2025 Telephone [facility] Medicine Surgery [address] [place] [address] Melva Friedman Social History Tobacco Use Types Packs/Day Years [...] on file Legal Sex Male 12:11 AM PHYSIOGNOMIST Gender Identity Male 12/03/2019 11:44 PM CDT Sexual Orientation Not on file Occupation Industry Job Start Date Job End Date disabled Not on file Not on file Not on file documented as of this encounter Miscellaneous Notes * Telephone Encounter - Devika Luna RMA - 01/03/2025 12:13 PM CDT Pt was advised refill was processed check with pharmacy prior to supervisor opening and picking Script changed from Dr. So to . Paige * Telephone Encounter - Melva Friedman - 01/03/2025 9:16 AM CDT [facility] calling to authorize refill of Tamsulosin and Tadalafil. Please call and advise at [phone]. Thanks! Provider: Tamiko documented in this encounter Plan of Treatment [...] on filedocumented in this encounter Care Teams Ware Server Relationship Specialty Start Date End Date Melania Gavin MD PCP - General Internal Medicine 12/13/20 documented as of this encounter
--- OUTSIDE RECORDS SUMMARY | 2025-01-03 15:07 | XMS_ITS | Encounter Summary ---
Author Organization [facility] Address [address] [place] [address] Phone Care Team Providers Care Orchard Worker Name Role Phone Melania Gavin MD Primary Care Provider Naya Monson MA Unavailable [phone] Encounter Details Date Type Department Care Team (Latest Contact Info) Description 06/24/2017 Orders Only [facility] Scanning, Provider Social History Tobacco Use Types Packs/Day Years Used Date Smoking Tobacco: Never Sex and Gender Information Value Date Recorded Sex Assigned at Not on file Legal Sex Male 12:11 AM SUPPLY MANAGER Gender Identity Male 12/03/2019 11:44 PM [...] COVID: Suspected 06/09/2024 06/09/2024 06/09/2024 2:18 PM SUPPLY MANAGER documented as of this encounter Care Teams Orchard Worker Relationship Specialty Start Date End Date Melania Gavin MD PCP - General Internal Medicine 12/13/20 Naya Monson MA [address] [facility] [address] [place] [address] ACO Care Salesperson Sewing Machines 11/18/22 11/19/22 documented as of this encounter
[2025-01-03 17:08] LABS: Iron 72 ug/dL (49-181)
[2025-01-03 17:12] LABS: Alanine Aminotransferase 42 U/L (6-50); Albumin Level 4.0 g/dL (3.5-5.1); Alkaline Phosphatase 62 U/L (38-126); Anion Gap 4 mmol/L (4-12); Aspartate Amino Transferase 56 U/L (17-59); Bilirubin,Total 0.4 mg/dL (0.2-1.3); Blood Urea Nitrogen 26 mg/dL (9-20); Calcium 8.8 mg/dL (8.4-10.2); Carbon Dioxide 28 mmol/L (22-30); Chloride 106 mmol/L (98-107); Estimated Glomerular Filt Rate > 60; Glucose 80 mg/dL (65-110); Potassium 4.6 mmol/L (3.4-5.0); Sodium 138 mmol/L (137-145); Total Protein 6.5 g/dL (6.3-8.2)
[2025-01-03 17:18] LABS: Percent Iron Saturation 22 % (20-50)
[2025-01-03 17:45] LABS: Ferritin 58.80 ng/mL (11.1-264)
[2025-01-03 18:09] LABS: Vitamin B12 > 1000.0 pg/mL (239-931)
== END 2025-01-03 14:30 | disposition home or self-care (01) ==
PROVIDERS: PCP Internal Medicine; Visit Provider Internal Medicine Hematology & Oncology
DX: D61.818 Other pancytopenia (principal); D50.9 Iron deficiency anemia, unspecified
CPT/HCPCS: 36415; 80053; 82607; 82728; 83540; 83550; 85025; 85055